=== PATIENT | male | born 1950 | race Caucasian/White ===

== ENCOUNTER 2022-01-04 10:07 | Emergency (ER) | payer OTHER, SELFPAY ==
--- NOTE | ~2022-01-04 | XR_ITS ---
EXAMINATION: XR chest 1V CLINICAL INFORMATION: Reason for Exam fall, hypotension COMPARISON: None TECHNIQUE: XR chest 1V Tubes and lines: None Lungs and pleura: Both lungs are clear. Heart and mediastinum: Widened mediastinum probably unfolding of the aorta exaggerated by AP technique.. Bones/soft tissue: Skeletal structures included are normal for patient's age. XR/XR chest 1V IMPRESSION: Widened mediastinum probably unfolding of the aorta, exaggerated by AP technique, consider correlation with follow-up chest PA and lateral and/or contrast-enhanced chest CT.
--- NOTE | ~2022-01-04 | XR_ITS ---
EXAMINATION: XR CHEST CLINICAL INFORMATION: Abnormal chest x-ray COMPARISON: Chest x-ray January 04, 2022 at 10:42 AM TECHNIQUE: 2 views of the chest were obtained. FINDINGS: Cardiac silhouette is normal in size. Similar appearance of the mediastinum suggesting unfolding of the aorta. There is no gross lobar consolidation present. No pleural effusion or pneumothorax. Moderate degenerative changes of the spine. XR/XR chest 2V IMPRESSION: Stable examination suggesting unfolding of the aorta.
--- NOTE | ~2022-01-04 | CT_ITS ---
EXAM: Noncontrast CT scan of the head and cervical spine. INDICATION: Fall with head strike and neck pain. COMPARISON: None TECHNIQUE: Axial slices were obtained from skull base to vertex and displayed. This was followed by helical, multislice, multidetector axial images from the occiput to the upper thorax. Coronal and sagittal reformats of the cervical spine in addition to coronal reformats of the head were obtained at the technologist workstation. DLP: 1128 mGy-cm FINDINGS: HEAD: There is no evidence of acute intracranial hemorrhage or territorial infarction. No abnormal mass effect or midline shift is appreciated. Mills-white differentiation is well preserved. No extra-axial fluid collections. The ventricular system and cortical sulci are prominent, consistent with volume loss. There are areas of low density in the periventricular and subcortical white matter, most consistent with sequelae of microvascular ischemic change. The osseous structures and soft tissues are normal. There is mild to moderate calcifications of the cavernous internal carotid arteries. The visualized paranasal sinuses and mastoid air cells are well aerated. SPINE: The cervical spine is visualized in its entirety. There is minimal anterolisthesis of C2 on C3 with minimal retrolisthesis of C4 on C5. Cervical vertebral body heights are maintained. There is moderate to severe disc space narrowing with associated degenerative changes of the endplates C4/5, C5/6 and to a lesser extent C6/7. Small osteophytes are noted within the mid and lower cervical spine. Mild diffuse facet hypertrophy bilaterally. No prevertebral soft tissue swelling. Visualized lung apices are well aerated. CT/CT cervical spine wo con IMPRESSION: 1. No acute intracranial pathology. 2. No fractures or dislocations of the cervical spine. This CT examination was performed using dose optimization techniques as appropriate, variously including the following: *Automated exposure control *Adjustment of mA and/or kV according to patient size (this includes techniques or standardized protocols for targeted exams where dose is matched to indication/reason for exam; i.e. extremities or head) *Use of iterative reconstruction technique
--- NOTE | ~2022-01-04 | CT_ITS ---
EXAMINATION: CT ANGIOGRAM CHEST CLINICAL INFORMATION: Hypotension and abnormal chest x-ray COMPARISON: Chest x-ray of January 04, 2022 TECHNIQUE: Multiple axial images were obtained through the chest after the administration of 70 mL of Omnipaque 350 intravenous contrast. Extensive vascular post-processing including two-dimensional and three-dimensional reformatted images were created and reviewed on an independent workstation. This CT examination was performed using dose optimization techniques as appropriate, variously including the following: *Automated exposure control *Adjustment of mA and/or kV according to patient size (this includes techniques or standardized protocols for targeted exams where dose is matched to indication/reason for exam; i.e. extremities or head) *Use of iterative reconstruction technique DLP: 406 mGy-cm FINDINGS: Lungs: There is motion artifact present somewhat degrading study. Central airways are patent. No significant bronchial wall thickening or bronchiectasis present. No confluent airspace disease is seen. Calcified granulomas present. There are a few nonspecific regions of hazy density within the right lower lobe with the largest one measuring approximately 1.4 x 0.7 cm in size. This can be seen on CT image [address] series #6. There are some bilateral scattered sub-4 mm densities present. Pulmonary arteries: No acute pulmonary artery emboli. Thoracic aorta: The ascending thoracic aorta is aneurysmal measuring approximately 4.5 cm in diameter. The proximal descending thoracic aorta measures 3.2 cm in diameter. The aortic arch is not dilated. No thoracic aortic dissection is identified. No evidence of transection. The celiac and superior mesenteric arteries are patent. Mediastinum: Heart normal size. No septal bowing identified. Aortic valve calcification is seen. Coronary artery calcification is seen. No pericardial effusion. No mediastinal or hilar lymphadenopathy. No pneumothorax or pleural effusion. There is reflux of contrast into the hepatic veins suggestive of elevated right heart pressures. There is cholelithiasis present without evidence of acute cholecystitis. Left renal cyst present. Status post gastric surgery. Osseous structures: Multilevel thoracic spondylosis is present without evidence of acute fracture or suspicious destructive bony lesion. CT/CT angio chest aorta IMPRESSION: No evidence of acute pulmonary artery embolus. Ascending thoracic aortic aneurysm measuring up to 4.5 cm in AP dimension. No evidence of aortic dissection. Right lower lobe groundglass opacities as described. Cholelithiasis without evidence of acute cholecystitis. According to the UPDATED 2017 Fleischner Society recommendations, the advised follow-up imaging for multiple subsolid nodules, the largest of which measures 6 mm or greater, is: CT at 3-6 months to confirm persistence. Subsequent management should be based on the most suspicious nodule(s).
--- NOTE | 2022-01-04 10:31 | ECG_ITS ---
Test Reason : AMS Blood Pressure : / mmHG Vent. Rate : 081 BPM Atrial Rate : 081 BPM P-R Int : 236 ms QRS Dur : 108 ms QT Int : 426 ms P-R-T Axes : 045 116 038 degrees QTc Int : 494 ms Sinus rhythm with 1st degree A-V block Low voltage QRS Right bundle branch block Abnormal ECG No previous ECGs available Referred By: Brie Wadsworth Electronically Signed By:CHESTER MIDDLETON
[2022-01-04 10:32] VITALS: BP 86/46; PULSE 97; RESP 18; TEMP 37.2; O2SAT 97; BMI 18.3
--- NOTE | 2022-01-04 10:39 | ED.AMS ---
HPI - Altered Mental Status General Chief Complaint: Altered Mental Status Stated Complaint: headstrike combative from snf Time Seen by Provider: 01/04/22 10:28 Source: EMS Mode of arrival: EMS Limitations: altered mental status History of Present Illness HPI narrative: 71-year-old male with history of end-stage renal disease on hemodialysis Wednesday and Fridays, hypotension on midodrine, diabetes, AFib on Coumadin, Boerhaave syndrome status post esophagectomy, gastrectomy status post G-tube placement, severe malnutrition, COPD, TIAs, ACD, hyperparathyroidism, chronic thrombocytopenia and leukopenia, chronic wounds to the anterior chest with recent biopsy, lumbar spondylosis with myelopathy, high cholesterol, chronic schizophrenia and compulsive pedophilia who comes from [facility] with concerns of a slip and fall falling backwards with head strike and no loss of consciousness. Staff is concerned since the fall the patient seems more altered and combative from his baseline. Patient is on Coumadin Unclear or patients baseline mental staus or if he received his morning medications. called and spoke to staff at [facility]. 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 Patient was witnessed to throw himself onto the floor with a head strike and no loss of consciousness. Related Data Allergies Allergy/AdvReac Type Severity Reaction Status Date / Time NICK Inhibitors Allergy Unknown Unknown Verified 01/04/22 10:31 aspirin Allergy Unknown Unknown Verified 01/04/22 10:31 divalproex sodium Allergy Unknown Unknown Verified 01/04/22 10:31 Review of Systems Review of Systems: Yes Unobtainable due to mental status Neurologic: Reports confusion Psychiatric: Psychiatric: Reports confusion PMFSH Past Medical History Attestation statement: The following information was validated with the patient. Source: old records reviewed Social History Social History Alcohol intake: unknown Patient Tobacco Use Status: Tobacco use Unknown Use of substances other than those prescribed or required for medical reasons: Unknown Advance Directives: Yes Advance Directives on File: Yes Advance Directives Date on File: 01/04/22 Physical Exam ED Vital Signs: Vital Signs - 24 hr 01/04/22 10:32 01/04/22 11:46 01/04/22 12:46 Temperature 98.9 F Pulse Rate 97 80 83 Respiratory Rate 18 14 Blood Pressure 86/46 L 83/59 L 90/62 Pulse Oximetry 97 Oxygen Delivery Method Room Air 01/04/22 13:41 Temperature Pulse Rate 79 Respiratory Rate 15 Blood Pressure 85/51 L Pulse Oximetry Oxygen Delivery Method BMI result Body Mass Index 18.3 Const Other: +cachetic General: alert, combative, confusion and poor hygiene Nutritional Appearance: underweight Orientation/consciousness: confusion Limitations: altered mental status [facility] Head: Yes normal to inspection, No Garcia's sign and No raccoon eyes Ears: hearing grossly normal bilaterally General nose exam: Normal external nose present Face and sinus: Yes normal facial exam Mouth: Normal oral and palatal mucosa present Throat: Yes posterior oropharynx normal Eyes General: appearance normal, both eyes and all related structures Pupils: Equal, round and reactive pupils present Neck Neck: Yes normal visual inspection, Yes full ROM, Yes no lymphadenopathy and Yes no meningeal signs Chest Chest palpation & inspection: normal inspection of the chest Resp Effort & Inspection: normal respiratory effort Auscultation: clear to auscultation bilaterally Cardio Rate: regular rate Rhythm: regular rhythm Peripheral pulses: Peripheral pulses 2+ throughout GI Other: GT present left side of abdomen Palpation (GI): Soft to palpation and nontender Back/Spine/Pelvis Thoracic/Lumbar Spine: thoracic and lumbar spine normal to inspection Skin General skin exam: no rashes or lesions noted Neuro General: moves all extremities, no meningeal signs, confusion and Unable to assess gait Cranial nerves: Yes Equal, round and reactive pupils present, Yes Normal facial strength present and Yes Midline tongue present Gait exam (Neuro): Unable to assess gait Course Course Course Narrative: the patient has a chest x-ray that suggests an unfolding of the aorta. He has had some hypotension which may or may not be chronic. He has an elevated INR and is on Coumadin with no active signs of bleeding however due to these findings the patient will have a CT of the chest to rule out dissection. His additional labs show chronic kidney disease. he goes to dialysis tomorrow at [facility]. patient is not fluid overload. His troponin is 30 he has no chest pain. His EKG shows no ischemic changes. This is likely secondary to elevated creatinine and not from ACS. Reevaluation(s) Reevaluation #1: 1600- the patient mild hypokalemia. This was replaced via G-tube. His CT of the chest showed no acute dissection. He does have a ascending thoracic aortic aneurysm up to 4.5cm. his blood pressure has been 85-90 systolic which does seem close to his baseline. He is asymptomatic. He is mentating. Plan for discharge back to [facility]. He has been alert here. He has been cooperative during his entire emergency room visit and has been agreeable to all interventions here. He is not happy about going back to [facility]. this case was discussed with my attending physician Dr. Carvalho MDM - Altered Mental Status MDM Narrative Medical decision making narrative: this is a 71-year-old male who comes from [facility] with an extensive medical history with hypotension at baseline on midodrine on coumadin for PAF who presents with concern for increasing confusion and a head injury which occurred earlier today. On arrival the patient is alert. He is confused. He has no overt deficits. Initial blood pressure is 85 systolic. Patient is mentating. will check labs, chest x-ray, CT head and cervical spine. - after the patient was seen I did speak to nursing at [facility]. They tell me the patient blood pressure at baseline is around 90 systolic. He has had intermittent low blood pressures and is on midodrine 10 mg daily. He did not receive any of his morning medications. Therefore his dose of midodrine was ordered via G-tube. She tells me that they were concerned the patient was acting more combative and altered after his head injury however the patient has had some changes in mental status over the last few weeks. She tells me that last week they patient was quite combative and confused and they discuss transferring him to the hospital but this was later decided to manage there. It seems the altered mental status may or may not be from the head injury but may be from his underlying psychiatric illnesses. Medical Records Attestation: I reviewed the patient's medical records. Lab Data Attestation: I reviewed the patient's lab results. Result diagrams: 01/04/22 11:15 01/04/22 11:13 Labs: Lab Results 01/04/22 01/04/22 01/04/22 Range/Units 11:13 11:13 11:13 WBC (4.8-10.8) X10*3/uL RBC (4.60-5.80) X10*6/uL Hgb (14.0-18.0) g/dl Hct (42.0-52.0) % MCV (80.0-98.0) fL MCH (27.0-33.0) pg MCHC (31.0-36.0) g/dl RDW (11.0-16.0) % Plt Count (160-400) X10*3/uL MPV (9.4-12.4) fL Immature Gran % (Auto) (0.0-0.4) % Neut % (Auto) (45-73) % Lymph % (Auto) (20-40) % Kern % (Auto) (2-11) % Eos % (Auto) (0-4) % Baso % (Auto) (0-2) % Lymph # (Auto) (1.2-4.9) X10*3/uL Kern # (Auto) (0.1-1.2) X10*3/uL Eos # (Auto) (0.0-0.4) X10*3/uL Baso # (Auto) (0.0-0.2) X10*3/uL Abs Immat Gran (auto) (0.00-0.03) X10*3/uL Absolute Neuts (auto) (2.0-8.3) x10*3/uL Absolute Nucleated RBC (0.0-0.012) X10*3/uL Nucleated RBC % (auto) (0.0-0.2) /100WBC PT (10.0-13.1) SEC INR (0.9-1.1) Sodium 137 (135-145) mmol/L Potassium 3.1 L (3.3-5.1) mmol/L Chloride 102 (96-108) mmol/L Carbon Dioxide 17 L (22-29) mmol/L Anion Gap 21 H (12-20) BUN 38 H (9-16) mg/dL Creatinine 6.01 H* (0.5-1.4) mg/dL Estim Creat Clear Calc 8.9 Estimated GFR 9 Random Glucose 81 (60-115) mg/dL Lactic Acid 1.0 (0.5-2.0) mmol/L Calcium 9.0 (8.4-10.2) mg/dL Magnesium 2.0 (1.6-2.6) mg/dL Total Bilirubin 0.9 (0.0-1.0) mg/dL Direct Bilirubin 0.4 (0.0-0.5) mg/dL AST 13 (5-37) U/L ALT 11 (0-40) U/L Alkaline Phosphatase 109 (39-117) U/L Troponin I High Sens 30.6 (<3.5-35.0) ng/L Total Protein 6.2 L (6.5-8.0) g/dL Albumin 3.7 (3.5-5.0) g/dL 01/04/22 01/04/22 Range/Units 11:13 11:15 WBC 10.1 (4.8-10.8) X10*3/uL RBC 3.92 L (4.60-5.80) X10*6/uL Hgb 11.8 L (14.0-18.0) g/dl Hct 36.4 L (42.0-52.0) % MCV 92.9 (80.0-98.0) fL MCH 30.1 (27.0-33.0) pg MCHC 32.4 (31.0-36.0) g/dl RDW 16.7 H (11.0-16.0) % Plt Count 234 (160-400) X10*3/uL MPV 9.3 L (9.4-12.4) fL Immature Gran % (Auto) 0.4 (0.0-0.4) % Neut % (Auto) 71.8 (45-73) % Lymph % (Auto) 17.7 L (20-40) % Kern % (Auto) 7.5 (2-11) % Eos % (Auto) 2.2 (0-4) % Baso % (Auto) 0.4 (0-2) % Lymph # (Auto) 1.8 (1.2-4.9) X10*3/uL Kern # (Auto) 0.8 (0.1-1.2) X10*3/uL Eos # (Auto) 0.2 (0.0-0.4) X10*3/uL Baso # (Auto) 0.0 (0.0-0.2) X10*3/uL Abs Immat Gran (auto) 0.04 H (0.00-0.03) X10*3/uL Absolute Neuts (auto) 7.2 (2.0-8.3) x10*3/uL Absolute Nucleated RBC 0.000 (0.0-0.012) X10*3/uL Nucleated RBC % (auto) 0.0 (0.0-0.2) /100WBC PT 119.4 H (10.0-13.1) SEC INR 9.5 H* (0.9-1.1) Sodium (135-145) mmol/L Potassium (3.3-5.1) mmol/L Chloride (96-108) mmol/L Carbon Dioxide (22-29) mmol/L Anion Gap (12-20) BUN (9-16) mg/dL Creatinine (0.5-1.4) mg/dL Estim Creat Clear Calc Estimated GFR Random Glucose (60-115) mg/dL Lactic Acid (0.5-2.0) mmol/L Calcium (8.4-10.2) mg/dL Magnesium (1.6-2.6) mg/dL Total Bilirubin (0.0-1.0) mg/dL Direct Bilirubin (0.0-0.5) mg/dL AST (5-37) U/L ALT (0-40) U/L Alkaline Phosphatase (39-117) U/L Troponin I High Sens (<3.5-35.0) ng/L Total Protein (6.5-8.0) g/dL Albumin (3.5-5.0) g/dL Imaging Data CT scan - head: Attestation: I personally reviewed and interpreted this imaging study as follows: Radiologist's impression: INDINGS: HEAD: There is no evidence of acute intracranial hemorrhage or territorial infarction.? No abnormal mass effect or midline shift is appreciated. Mills-white differentiation is well preserved.? No extra-axial fluid collections. The ventricular system and cortical sulci are prominent, consistent with volume loss.? There are areas of low density in the periventricular and subcortical white matter, most consistent with sequelae of microvascular ischemic change.? The osseous structures and soft tissues are normal.? There is mild to moderate calcifications of the cavernous internal carotid arteries. The visualized paranasal sinuses and mastoid air cells are well aerated. ct cervical spine: Attestation: I personally reviewed and interpreted this imaging study as follows: Radiologist's impression: SPINE: The cervical spine is visualized in its entirety. There is minimal anterolisthesis of C2 on C3 with minimal retrolisthesis of C4 on C5. Cervical vertebral body heights are maintained. There is moderate to severe disc space narrowing with associated degenerative changes of the endplates C4/5, C5/6 and to a lesser extent C6/7. Small osteophytes are noted within the mid and lower cervical spine. Mild diffuse facet hypertrophy bilaterally. No prevertebral soft tissue swelling. Visualized lung apices are well aerated. Chest x-ray: Attestation: I personally reviewed and interpreted this imaging study as follows: Radiologist's impression: [address] [address] XRay Report Signed Patient: Jarocho House MR#: [id number] : 1950 Acct:[id number] Age/Sex: 71 / M ADM Date: 01/04/22 Loc: .ED Attending Dr: Ordering Physician: Brie Wadsworth NP Date of Service: 01/04/22 Procedure(s): XR chest 2V Accession Number(s): [id number] cc: Brie Wadsworth NP~ EXAMINATION: XR CHEST CLINICAL INFORMATION: Abnormal chest x-ray COMPARISON: Chest x-ray January 04, 2022 at 10:42 AM TECHNIQUE: 2 views of the chest were obtained. FINDINGS: Cardiac silhouette is normal in size. Similar appearance of the mediastinum suggesting unfolding of the aorta. There is no gross lobar consolidation present. No pleural effusion or pneumothorax. Moderate degenerative changes of the spine. XR/XR chest 2V IMPRESSION: Stable examination suggesting unfolding of the aorta. CT scan - chest: Attestation: I personally reviewed and interpreted this imaging study as follows: Radiologist's impression: FINDINGS: Lungs: There is motion artifact present somewhat degrading study. Central airways are patent. No significant bronchial wall thickening or bronchiectasis present. No confluent airspace disease is seen. Calcified granulomas present. There are a few nonspecific regions of hazy density within the right lower lobe with the largest one measuring approximately 1.4 x 0.7 cm in size. This can be seen on CT image [address] series #6. There are some bilateral scattered sub-4 mm densities present. Pulmonary arteries: No acute pulmonary artery emboli. Thoracic aorta: The ascending thoracic aorta is aneurysmal measuring approximately 4.5 cm in diameter. The proximal descending thoracic aorta measures 3.2 cm in diameter. The aortic arch is not dilated. No thoracic aortic dissection is identified. No evidence of transection. The celiac and superior mesenteric arteries are patent. Mediastinum: Heart normal size. No septal bowing identified. Aortic valve calcification is seen. Coronary artery calcification is seen. No pericardial effusion. No mediastinal or hilar lymphadenopathy. No pneumothorax or pleural effusion. There is reflux of contrast into the hepatic veins suggestive of elevated right heart pressures. There is cholelithiasis present without evidence of acute cholecystitis. Left renal cyst present. Status post gastric surgery. Osseous structures: Multilevel thoracic spondylosis is present without evidence of acute fracture or suspicious destructive bony lesion. CT/CT angio chest aorta IMPRESSION: No evidence of acute pulmonary artery embolus. ? Ascending thoracic aortic aneurysm measuring up to 4.5 cm in AP dimension. No evidence of aortic dissection. ? ?Right lower lobe groundglass opacities as described. ? Cholelithiasis without evidence of acute cholecystitis. ? According to the UPDATED 2017 Fleischner Society recommendations, the advised follow-up imaging for multiple subsolid nodules, the largest of which measures 6 mm or greater, is: CT at 3-6 months to confirm persistence. Subsequent management should be based on the most suspicious nodule(s). ECG Data ECG #1: Attestation: I personally reviewed and interpreted this ECG as follows: ECG interpretation date: 01/04/22 ECG interpretation time: 10:58 Interpretation: sinus rhythm with a first-degree AV block, normal QRS, normal QT, right bundle-branch block Discharge Plan Discharge Clinical Impression: Fall, Elevated INR Patient Disposition: [facility] Transfer Details: [facility] Additional Instructions: the patient's INR is 9.5. do not give him his Coumadin today. speak to the medical staff about when to resume.
[2022-01-04] MEDS: Midodrine HCl 10 MG TABLET G-TUBE (11:06)
[2022-01-04 11:20] LABS: Basophils Percent Auto 0.4 % (0-2); Eosinophils Absolute Auto 0.2 X10*3/uL (0.0-0.4); Eosinophils Percent Auto 2.2 % (0-4); Hematocrit 36.4 % (42.0-52.0); Hemoglobin 11.8 g/dl (14.0-18.0); Imm Gran Abs Auto 0.04 X10*3/uL (0.00-0.03); Imm Gran Pct Auto 0.4 % (0.0-0.4); Lymphocytes Absolute Auto 1.8 X10*3/uL (1.2-4.9); Lymphocytes Percent Auto 17.7 % (20-40); MANUAL DIFF FLAG NO; Mean Corpuscular HGB Conc 32.4 g/dl (31.0-36.0); Mean Corpuscular Hemoglobin 30.1 pg (27.0-33.0); Mean Corpuscular Volume 92.9 fL (80.0-98.0); Mean Platelet Volume 9.3 fL (9.4-12.4); Monocytes Absolute Auto 0.8 X10*3/uL (0.1-1.2); Monocytes Percent Auto 7.5 % (2-11); Neutrophils Absolute Auto 7.2 x10*3/uL (2.0-8.3); Neutrophils Percent Auto 71.8 % (45-73); Platelet Count 234 X10*3/uL (160-400); Red Blood Count 3.92 X10*6/uL (4.60-5.80); Red Cell Distribution Width 16.7 % (11.0-16.0); White Blood Count 10.1 X10*3/uL (4.8-10.8)
[2022-01-04 11:33] LABS: Prothrombin Time 119.4 SEC (10.0-13.1)
[2022-01-04 11:39] LABS: Troponin-I High Sensitivity 30.6 ng/L (<3.5-35.0)
[2022-01-04 11:46] VITALS: BP 83/59; PULSE 80
[2022-01-04 12:02] LABS: INTERNATIONAL NORM RATIO 9.5 (0.9-1.1)
[2022-01-04 12:03] LABS: Alanine Aminotransferase 11 U/L (0-40); Albumin Level 3.7 g/dL (3.5-5.0); Alkaline Phosphatase 109 U/L (39-117); Anion Gap 21 (12-20); Aspartate Amino Transferase 13 U/L (5-37); Bilirubin Direct 0.4 mg/dL (0.0-0.5); Bilirubin Total 0.9 mg/dL (0.0-1.0); Blood Urea Nitrogen 38 mg/dL (9-16); Carbon Dioxide 17 mmol/L (22-29); Chloride 102 mmol/L (96-108); Creatinine Clr Calc Pharmacy 8.9; Estimated Glomerular Filt Rate 9; Glucose Random 81 mg/dL (60-115); Potassium 3.1 mmol/L (3.3-5.1); Sodium 137 mmol/L (135-145); Total Protein 6.2 g/dL (6.5-8.0)
[2022-01-04] MEDS: Potassium Chloride ER 20 MEQ TAB.ER.PRT 30 MEQ PO (12:21)
[2022-01-04] MEDS: Potassium Chloride Packet 20 MEQ PACKET 40 MEQ G-TUBE (12:22)
[2022-01-04 12:46] VITALS: BP 90/62; PULSE 83; RESP 14
[2022-01-04 13:41] VITALS: BP 85/51; PULSE 79; RESP 15
[2022-01-04] MEDS: iohexoL 350 MG/ML 100 ML INFUS..BTL IV (14:25)
== END 2022-01-04 18:41 | disposition skilled nursing facility (03) ==
PROVIDERS: Nurse Practitioner Family; Emergency Provider Emergency Medicine; PCP Internal Medicine
DX: Z04.3 Encounter for examination and observation following other accident (principal); R79.1 Abnormal coagulation profile; E87.6 Hypokalemia; I71.2 Thoracic aortic aneurysm, without rupture; Z91.81 History of falling; I95.9 Hypotension, unspecified; E11.22 Type 2 diabetes mellitus with diabetic chronic kidney disease; N18.6 End stage renal disease; Z99.2 Dependence on renal dialysis; E78.00 Pure hypercholesterolemia, unspecified; I48.0 Paroxysmal atrial fibrillation; R62.7 Adult failure to thrive; Z68.1 Body mass index [BMI] 19.9 or less, adult; Z79.899 Other long term (current) drug therapy; Z79.02 Long term (current) use of antithrombotics/antiplatelets; Z79.01 Long term (current) use of anticoagulants; Z93.1 Gastrostomy status; Z86.73 Personal history of transient ischemic attack (TIA), and cerebral infarction without residual deficits
CPT/HCPCS: 36415; 70450; 71045; 71046; 71275; 72125; 80048; 80076; 83605; 83735; 84484; 85025; 85610; 87040; 87077; 87186; 87205; 93005; 99284; Q9967

== ENCOUNTER 2022-01-05 18:22 | Emergency (ER) | payer OTHER, SELFPAY ==
[2022-01-05] VITALS (10 sets, daily range): BP systolic 62–124; BP diastolic 34–68; PULSE 67–89; RESP 12–16; TEMP 36.7; O2SAT 94–99; BMI 18.4
--- NOTE | ~2022-01-05 | XR_ITS ---
EXAMINATION: XR ABDOMEN KUB CLINICAL INDICATION: G-tube check COMPARISON: None TECHNIQUE: AP view of the abdomen. The radiograph was performed after injection of 30 mL of Gastrografin by Dr. Blue FINDINGS: There is filling of jejunum and the tube appears to be a primary jejunostomy. No definite filling of the gastric lumen is seen. No extravasated contrast or intraperitoneal contrast. XR/XR KUB IMPRESSION: Direct jejunostomy is in good position.
--- NOTE | ~2022-01-05 | CT_ITS ---
EXAMINATION: CT ABDOMEN AND PELVIS WITHOUT CONTRAST CLINICAL INFORMATION: Abdominal pain COMPARISON: None TECHNIQUE: Multidetector volumetric imaging was performed from the superior aspect of the liver through the pubic symphysis. Sagittal and coronal reformatted images were obtained on the technologist's workstation. This CT examination was performed using dose optimization techniques as appropriate, variously including the following: *Automated exposure control *Adjustment of mA and/or kV according to patient size (this includes techniques or standardized protocols for targeted exams where dose is matched to indication/reason for exam; i.e. extremities or head) *Use of iterative reconstruction technique DLP: 614 mGy-cm FINDINGS: LUNG BASES: There is a right basilar scarring or atelectasis. Heart size is normal. LIVER, GALLBLADDER, AND BILIARY TREE: The liver is normal in size, shape, and attenuation. No focal hepatic lesion or biliary ductal dilatation is present. The gallbladder is distended with multiple dependent radiopaque gallstones without wall thickening or pericholecystic fluid collection. PANCREAS: Unremarkable. SPLEEN: The spleen is prominent measuring 11.5 cm in longest axis oriented transversely. There are scattered calcifications within. ADRENAL GLANDS: Both adrenal glands are slightly hypertrophied. KIDNEYS AND URETERS: The kidneys are normal in size, shape, and attenuation. No hydronephrosis, hydroureter, or calculi seen. No perinephric stranding. 1.6 cm left kidney and an 1.1 cm exophytic midpole right kidney cyst there are additional right renal cyst seen. There is no hydronephrosis. BLADDER: The bladder is nondistended and appears unremarkable. GASTROINTESTINAL TRACT: There is a left jejunostomy catheter in the left midabdomen. The small bowel loops are normal caliber. Oral contrast opacifies the entire colon PICC a annular lesion in the right mid ascending colon best visualized on coronal image 59/5 and sagittal image 96/6. No proximal bowel dilation seen. There is mild mural thickening involving the sigmoid colon but no pericolic fat stranding seen. Appendix is not visualized. ABDOMINAL WALL: There are surgical [place] in the right midabdomen. No evidence of hernia. LYMPH NODES: There are small lymph nodes in the right ileocolic mesentery. No retroperitoneal lymph nodes seen. VASCULAR: There is atherosclerotic changes of abdominal aorta without aneurysmal dilatation. PELVIC VISCERA: There is no free fluid. OSSEOUS STRUCTURES: There is grade 2 anterolisthesis L5-S1 with degenerative disc changes L4-L5 and L5/S1 disc levels. There is moderate spondylosis as well. No aggressive lytic or sclerotic process seen. CT/CT abdomen pelvis wo con IMPRESSION: Well-defined annular lesion right mid ascending colon suspicious for colonic tumor. There are abnormal ileocolic several mesenteric lymph nodes best visualized on axial image 46/3 Bilateral renal cysts without radiopaque calculi or hydronephrosis. Cholelithiasis with a dilated gallbladder. Mild prostate enlargement with central and peripheral calcification. Left mid abdomen jejunostomy tube. Right basilar platelike atelectasis. Fleischner guidelines were followed.
--- NOTE | 2022-01-05 18:27 | ED.GENADULT ---
HPI - General Adult General Chief complaint: General Medical <ALEX Contreras - Last Filed: 01/06/22 05:08> Stated complaint: G TUBE LEAKING <ALEX Contreras - Last Filed: 01/06/22 05:08> Time Seen by Provider: 01/05/22 18:27 <ALEX Contreras - Last Filed: 01/06/22 05:08> Source: patient <ALEX Contreras - Last Filed: 01/06/22 05:08> Mode of arrival: ambulatory <ALEX Contreras - Last Filed: 01/06/22 05:08> Limitations: altered mental status and other (Minimally responsive, lethargic) <ALEX Contreras Last Filed: 01/06/22 05:08> History of Present Illness HPI narrative: This is a 71-year-old male history of end-stage renal disease on hemodialysis (Wednesday, Wednesday, Wednesday at [facility]), diabetes, atrial fibrillation on Coumadin, Boerhaave syndrome status post esophagectomy, gastrectomy status post G-tube placement, malnutrition, ACD, TIAs, COPD, hyperparathyroidism, leukopenia and chronic thrombocytopenia, 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 Patient unable to provide me with a history. Patient toxic appearing. He is hypotensive for triage blood pressure of 63/40. Patient unable to provide me with a history or review of systems. He did tell EMS at some point that his abdomen was hurting. Patient full code. <ALEX Contreras Last Filed: 01/06/22 05:08> Related Data Allergies/adverse reactions: Allergies Allergy/AdvReac Type Severity Reaction Status Date / Time NICK Inhibitors Allergy Unknown Unknown Verified 01/05/22 18:47 aspirin Allergy Unknown Unknown Verified 01/05/22 18:47 divalproex sodium Allergy Unknown Unknown Verified 01/05/22 18:47 valproic acid Allergy Unknown Unknown Verified 01/05/22 18:47 <ALEX Contreras Last Filed: 01/06/22 05:08> Review of Systems Review of Systems: Yes unobtainable due to endotracheal tube <ALEX Contreras - Last Filed: 01/06/22 05:08> FOR[facility]LY [facility] Past Medical History Attestation statement: The following information was validated with the patient. <ALEX Contreras - Last Filed: 01/06/22 05:08> Source: old records reviewed and nursing notes reviewed <ALEX Contreras - Last Filed: 01/06/22 05:08> Social History Social History: Social History Alcohol intake: unknown Patient Tobacco Use Status: Tobacco use Unknown Advance Directives: Yes Advance Directives on File: Yes Advance Directives Date on File: 01/04/22 <ALEX Contreras - Last Filed: 01/06/22 05:08> Physical Exam ED Vital Signs: Vital Signs - 24 hr 01/05/22 18:48 01/05/22 19:24 01/05/22 19:53 Temperature 98.0 F Pulse Rate 74 77 Respiratory Rate 13 14 Blood Pressure 62/38 L 67/43 L 73/34 L Pulse Oximetry 97 Oxygen Delivery Method Room Air 01/05/22 20:12 01/05/22 20:43 01/05/22 21:10 Temperature Pulse Rate 82 70 89 Respiratory Rate 16 16 16 Blood Pressure 64/42 L 64/43 L 64/40 L Pulse Oximetry 95 99 96 Oxygen Delivery Method Room Air Room Air Room Air 01/05/22 21:14 01/05/22 22:12 01/05/22 22:37 Temperature Pulse Rate 82 73 77 Respiratory Rate 16 14 16 Blood Pressure 64/40 L 76/49 L 82/53 L Pulse Oximetry 99 95 96 Oxygen Delivery Method Room Air Room Air Room Air 01/05/22 23:44 01/06/22 00:09 01/06/22 02:33 Temperature Pulse Rate 67 65 68 Respiratory Rate 12 14 16 Blood Pressure 62/36 L 67/33 L 69/43 L Pulse Oximetry 98 95 100 Oxygen Delivery Method Room Air Room Air 01/06/22 04:10 Temperature Pulse Rate 72 Respiratory Rate 16 Blood Pressure 64/39 L Pulse Oximetry 100 Oxygen Delivery Method Room Air BMI result Body Mass Index 18.4 Patient is noted to be significantly hypotensive <ALEX Contreras - Last Filed: 01/06/22 05:08> Vital Signs - 24 hr 01/05/22 18:48 01/05/22 19:24 01/05/22 19:53 Temperature 98.0 F Pulse Rate 74 77 Respiratory Rate 13 14 Blood Pressure 62/38 L 67/43 L 73/34 L Pulse Oximetry 97 Oxygen Delivery Method Room Air 01/05/22 20:12 01/05/22 20:43 01/05/22 21:10 Temperature Pulse Rate 82 70 89 Respiratory Rate 16 16 16 Blood Pressure 64/42 L 64/43 L 64/40 L Pulse Oximetry 95 99 96 Oxygen Delivery Method Room Air Room Air Room Air 01/05/22 21:14 01/05/22 22:12 01/05/22 22:37 Temperature Pulse Rate 82 73 77 Respiratory Rate 16 14 16 Blood Pressure 64/40 L 76/49 L 82/53 L Pulse Oximetry 99 95 96 Oxygen Delivery Method Room Air Room Air Room Air 01/05/22 23:44 01/06/22 00:09 01/06/22 02:33 Temperature Pulse Rate 67 65 68 Respiratory Rate 12 14 16 Blood Pressure 62/36 L 67/33 L 69/43 L Pulse Oximetry 98 95 100 Oxygen Delivery Method Room Air Room Air 01/06/22 04:10 Temperature Pulse Rate 72 Respiratory Rate 16 Blood Pressure 64/39 L Pulse Oximetry 100 Oxygen Delivery Method Room Air BMI result Body Mass Index 18.4 <Austin Olea MD - Last Filed: 01/05/22 19:20> Appearance patient awake to verbal and painful stimuli. Patient toxic appearing, lethargic. Cachectic Head: Normocephalic, atraumatic, no step-offs or deformities Eyes: Pupils equal, round and reactive to light.? ENT: Pharynx normal.?Dry mucus membranes Neck: Normal inspection.? Neck supple.? CVS: Normal heart rate and rhythm.? Pulses normal.? Respiratory: No respiratory distress.? Breath sounds normal.? Abdomen: Soft and diffusely tender, a GJ tube is in place however leaking. Skin: Skin warm and dry.? Normal skin color.? Normal skin turgor.?+ cellulitis vs fungal surrounding the insertion site of the GJ tube. Extremities: No lower extremity edema.? No calf ttp. 5/5 strength to bilateral upper and lower extremities Neuro: Awakes to verbal and painful stimuli. Patient not oriented to time, or situation. <ALEX Contreras - Last Filed: 01/06/22 05:08> Course Reevaluation(s) Reevaluation #1: CBC with no acute findings, chemistry with a slightly elevated BUN creatinine however patient is a hemodialysis patient, BUN and creatinine significantly improved since yesterday when he was here. Patient very difficult to obtain urine from, large boggy prostate, unable to get a cudae in or a regular cath. [place] cath in place. Bladder scan 0 <ALEX Contreras - Last Filed: 01/06/22 05:08> Time: 20:20 <ALEX Contreras - Last Filed: 01/06/22 05:08> Reevaluation #2: Spoke to nurse from [facility] who tells me GJ tube was leaking and he seemed very restless, baseline bp low. Patient with intermittent confusion per shelter staff. <ALEX Contreras - Last Filed: 01/06/22 05:08> Time: 19:51 <ALEX Contreras - Last Filed: 01/06/22 05:08> Reevaluation #3: Spoke to GI Dr. Gary who tells me he doesnt place J tubes. Spoke to who tells me this is not emergent can be done out patient. <ALEX Contreras - Last Filed: 01/06/22 05:08> Time: 20:00 <ALEX Contreras Last Filed: 01/06/22 05:08> Additional Reevaluation(s): 5 A bedside ultrasound was done which shows a completely flat IVC consistent with dehydration, spoke to my attending who recommends fluid hydration. Patient remains lethargic. UA pending. CT of the abdomen and pelvic significant for a well-defined annular lesion in the right mid ascending colon suspicion for colonic tumor. There are ileocecal several mesenteric lymph nodes. Bilateral renal cysts are noted, cholelithiasis with a dilated gallbladder also noted. Patient does have pain with palpation to entire abdomen. 0146 Nurse at this time tells me that his pressures are chronically low SBP 70-100, they tell me that patient has been more aggressive and altered than usual. Patient full code. 0152 Tried to call family no answer (Bernabe Soto) 0449 Spoke to Sanjay JOHNSON from ICU he doesn't feel like patient doesn't require in patient admission. [address] Rodgers who doesn't feel as though patient requires hospital admission. Patient will remain in the ED until hospitalist speaks to the morning team to come up with a plan. Report given to Dr. Valentine. 0500 Spoke to hospitalist again, now feels as though there is no reason for hospital admission. Patient will remain in the ED for monitoring of BP evaluation. Report given to Dr. Valentine <ALEX Contreras - Last Filed: 01/06/22 05:08> Procedures Feeding Tube Replacement Type of Tube: gastrostomy <Austin Olea MD - Last Filed: 01/05/22 19:20> Insertion Site Prior to Procedure: erythematous <Austin Olea MD - Last Filed: 01/05/22 19:20> Tube Used for Reinsertion: other (SHAY) <Austin Olea MD - Last Filed: 01/05/22 19:20> [place] Tube Size (F): 22 <Austin Olea MD - Last Filed: 01/05/22 19:20> Balloon size (mL): 10 <Austin Olea MD - Last Filed: 01/05/22 19:20> Verification of Placement: gastrografin injection <Austin Olea MD - Last Filed: 01/05/22 19:20> Tube Secured by: tape/dressing <Austin Olea MD - Last Filed: 01/05/22 19:20> Patient Tolerated Procedure: well <Austin Olea MD - Last Filed: 01/05/22 19:20> Additional Comments: Patient had a GJ tube, G-tube was placed instead of GJ tube to keep the opening patent <Austin Olea MD - Last Filed: 01/05/22 19:20> Medical Decision Making [facility] Narrative Medical decision making narrative: 1918 71-year-old male presenting for replacement of GJ tube which is currently leaking, patient noted to be toxic appearing and hypotensive upon triage. Patient minimally responsive and unable to provide me with an accurate history. Patient coming from [facility]. Physical examination significant for leaking and GJ tube in place, abdomen diffusely tender, regular rate and rhythm, lungs clear, patient awakes to verbal and painful stimuli. Oriented to person however not time or situation. Patient appears toxic and is hypotensive. At this time infection suspected, blood cultures, lactic acid, basic labs as well as CT of the abdomen and pelvis will be ordered at this time. Patient is a hemodialysis patient therefore he will be hydrated only with 500 cc of fluid. Will give Zosyn for prophylactic coverage. A new GJ tube has been placed, 22 G, KUB ordered for confirmation. <ALEX Contreras - Last Filed: 01/06/22 05:08> Medical Records Medical records reviewed: Yes I reviewed the patient's medical records. <ALEX Contreras - Last Filed: 01/06/22 05:08> Lab Data Lab results reviewed: Yes I reviewed the patient's lab results. <ALEX Contreras - Last Filed: 01/06/22 05:08> Result diagrams: : 01/05/22 19:13 01/05/22 19:13 <ALEX Contreras - Last Filed: 01/06/22 05:08> Labs: Lab Results 01/05/22 01/05/22 01/05/22 Range/Units 19:00 19:13 19:13 WBC 10.1 (4.8-10.8) X10*3/uL RBC 4.03 L (4.60-5.80) X10*6/uL Hgb 12.0 L (14.0-18.0) g/dl Hct 38.5 L (42.0-52.0) % MCV 95.5 (80.0-98.0) fL MCH 29.8 (27.0-33.0) pg MCHC 31.2 (31.0-36.0) g/dl RDW 16.7 H (11.0-16.0) % Plt Count 261 (160-400) X10*3/uL MPV 9.9 (9.4-12.4) fL Immature Gran % (Auto) 0.5 H (0.0-0.4) % Neut % (Auto) 78.7 H (45-73) % Lymph % (Auto) 11.6 L (20-40) % [place] % (Auto) 7.2 (2-11) % Eos % (Auto) 1.6 (0-4) % Baso % (Auto) 0.4 (0-2) % Lymph # (Auto) 1.2 (1.2-4.9) X10*3/uL [place] # (Auto) 0.7 (0.1-1.2) X10*3/uL Eos # (Auto) 0.2 (0.0-0.4) X10*3/uL Baso # (Auto) 0.0 (0.0-0.2) X10*3/uL Abs Immat Gran (auto) 0.05 H (0.00-0.03) X10*3/uL Absolute Neuts (auto) 8.0 (2.0-8.3) x10*3/uL Absolute Nucleated RBC 0.000 (0.0-0.012) X10*3/uL Nucleated RBC % (auto) 0.0 (0.0-0.2) /100WBC PT (10.0-13.1) SEC INR (0.9-1.1) Sodium 140 (135-145) mmol/L Potassium 3.8 D (3.3-5.1) mmol/L Chloride 102 (96-108) mmol/L Carbon Dioxide 19 L (22-29) mmol/L Anion Gap 23 H (12-20) BUN 22 H (9-16) mg/dL Creatinine 3.55 H (0.5-1.4) mg/dL Estim Creat Clear Calc 16.6 Estimated GFR 17 POC Glucose 68 (60-115) mg/dL Random Glucose 76 (60-115) mg/dL Lactic Acid (0.5-2.0) mmol/L Calcium 8.9 (8.4-10.2) mg/dL Magnesium 1.9 (1.6-2.6) mg/dL Total Bilirubin 0.9 (0.0-1.0) mg/dL AST 24 D (5-37) U/L ALT 15 (0-40) U/L Alkaline Phosphatase 115 (39-117) U/L Ammonia (13-55) umol/L Troponin I High Sens (<3.5-35.0) ng/L Total Protein 6.7 (6.5-8.0) g/dL Albumin 3.8 (3.5-5.0) g/dL COVID-19 (ELISABETH) (Negative) COVID-19 Clin Com 01/05/22 01/05/22 01/05/22 Range/Units 19:13 19:13 19:13 WBC (4.8-10.8) X10*3/uL RBC (4.60-5.80) X10*6/uL Hgb (14.0-18.0) g/dl Hct (42.0-52.0) % MCV (80.0-98.0) fL MCH (27.0-33.0) pg MCHC (31.0-36.0) g/dl RDW (11.0-16.0) % Plt Count (160-400) X10*3/uL MPV (9.4-12.4) fL Immature Gran % (Auto) (0.0-0.4) % Neut % (Auto) (45-73) % Lymph % (Auto) (20-40) % [place] % (Auto) (2-11) % Eos % (Auto) (0-4) % Baso % (Auto) (0-2) % Lymph # (Auto) (1.2-4.9) X10*3/uL [place] # (Auto) (0.1-1.2) X10*3/uL Eos # (Auto) (0.0-0.4) X10*3/uL Baso # (Auto) (0.0-0.2) X10*3/uL Abs Immat Gran (auto) (0.00-0.03) X10*3/uL Absolute Neuts (auto) (2.0-8.3) x10*3/uL Absolute Nucleated RBC (0.0-0.012) X10*3/uL Nucleated RBC % (auto) (0.0-0.2) /100WBC PT (10.0-13.1) SEC INR (0.9-1.1) Sodium (135-145) mmol/L Potassium (3.3-5.1) mmol/L Chloride (96-108) mmol/L Carbon Dioxide (22-29) mmol/L Anion Gap (12-20) BUN (9-16) mg/dL Creatinine (0.5-1.4) mg/dL Estim Creat Clear Calc Estimated GFR POC Glucose (60-115) mg/dL Random Glucose (60-115) mg/dL Lactic Acid 0.8 (0.5-2.0) mmol/L Calcium (8.4-10.2) mg/dL Magnesium (1.6-2.6) mg/dL Total Bilirubin (0.0-1.0) mg/dL AST (5-37) U/L ALT (0-40) U/L Alkaline Phosphatase (39-117) U/L Ammonia (13-55) umol/L Troponin I High Sens 25.3 (<3.5-35.0) ng/L Total Protein (6.5-8.0) g/dL Albumin (3.5-5.0) g/dL COVID-19 (ELISABETH) Negative (Negative) COVID-19 Clin Com See Note 01/05/22 01/05/22 01/05/22 Range/Units 19:33 20:16 23:36 WBC (4.8-10.8) X10*3/uL RBC (4.60-5.80) X10*6/uL Hgb (14.0-18.0) g/dl Hct (42.0-52.0) % MCV (80.0-98.0) fL MCH (27.0-33.0) pg MCHC (31.0-36.0) g/dl RDW (11.0-16.0) % Plt Count (160-400) X10*3/uL MPV (9.4-12.4) fL Immature Gran % (Auto) (0.0-0.4) % Neut % (Auto) (45-73) % Lymph % (Auto) (20-40) % [place] % (Auto) (2-11) % Eos % (Auto) (0-4) % Baso % (Auto) (0-2) % Lymph # (Auto) (1.2-4.9) X10*3/uL [place] # (Auto) (0.1-1.2) X10*3/uL Eos # (Auto) (0.0-0.4) X10*3/uL Baso # (Auto) (0.0-0.2) X10*3/uL Abs Immat Gran (auto) (0.00-0.03) X10*3/uL Absolute Neuts (auto) (2.0-8.3) x10*3/uL Absolute Nucleated RBC (0.0-0.012) X10*3/uL Nucleated RBC % (auto) (0.0-0.2) /100WBC PT 24.5 H (10.0-13.1) SEC INR 2.1 H D (0.9-1.1) Sodium (135-145) mmol/L Potassium (3.3-5.1) mmol/L Chloride (96-108) mmol/L Carbon Dioxide (22-29) mmol/L Anion Gap (12-20) BUN (9-16) mg/dL Creatinine (0.5-1.4) mg/dL Estim Creat Clear Calc Estimated GFR POC Glucose (60-115) mg/dL Random Glucose (60-115) mg/dL Lactic Acid (0.5-2.0) mmol/L Calcium (8.4-10.2) mg/dL Magnesium (1.6-2.6) mg/dL Total Bilirubin (0.0-1.0) mg/dL AST (5-37) U/L ALT (0-40) U/L Alkaline Phosphatase (39-117) U/L Ammonia 14 (13-55) umol/L Troponin I High Sens 24.9 (<3.5-35.0) ng/L Total Protein (6.5-8.0) g/dL Albumin (3.5-5.0) g/dL COVID-19 (ELISABETH) (Negative) COVID-19 Clin Com <ALEX Contreras - Last Filed: 01/06/22 05:08> Lab Results 01/05/22 01/05/22 01/05/22 Range/Units 19:00 19:13 19:13 WBC 10.1 (4.8-10.8) X10*3/uL RBC 4.03 L (4.60-5.80) X10*6/uL Hgb 12.0 L (14.0-18.0) g/dl Hct 38.5 L (42.0-52.0) % MCV 95.5 (80.0-98.0) fL MCH 29.8 (27.0-33.0) pg MCHC 31.2 (31.0-36.0) g/dl RDW 16.7 H (11.0-16.0) % Plt Count 261 (160-400) X10*3/uL MPV 9.9 (9.4-12.4) fL Immature Gran % (Auto) 0.5 H (0.0-0.4) % Neut % (Auto) 78.7 H (45-73) % Lymph % (Auto) 11.6 L (20-40) % [place] % (Auto) 7.2 (2-11) % Eos % (Auto) 1.6 (0-4) % Baso % (Auto) 0.4 (0-2) % Lymph # (Auto) 1.2 (1.2-4.9) X10*3/uL [place] # (Auto) 0.7 (0.1-1.2) X10*3/uL Eos # (Auto) 0.2 (0.0-0.4) X10*3/uL Baso # (Auto) 0.0 (0.0-0.2) X10*3/uL Abs Immat Gran (auto) 0.05 H (0.00-0.03) X10*3/uL Absolute Neuts (auto) 8.0 (2.0-8.3) x10*3/uL Absolute Nucleated RBC 0.000 (0.0-0.012) X10*3/uL Nucleated RBC % (auto) 0.0 (0.0-0.2) /100WBC PT (10.0-13.1) SEC INR (0.9-1.1) Sodium 140 (135-145) mmol/L Potassium 3.8 D (3.3-5.1) mmol/L Chloride 102 (96-108) mmol/L Carbon Dioxide 19 L (22-29) mmol/L Anion Gap 23 H (12-20) BUN 22 H (9-16) mg/dL Creatinine 3.55 H (0.5-1.4) mg/dL Estim Creat Clear Calc 16.6 Estimated GFR 17 POC Glucose 68 (60-115) mg/dL Random Glucose 76 (60-115) mg/dL Lactic Acid (0.5-2.0) mmol/L Calcium 8.9 (8.4-10.2) mg/dL Magnesium 1.9 (1.6-2.6) mg/dL Total Bilirubin 0.9 (0.0-1.0) mg/dL AST 24 D (5-37) U/L ALT 15 (0-40) U/L Alkaline Phosphatase 115 (39-117) U/L Ammonia (13-55) umol/L Troponin I High Sens (<3.5-35.0) ng/L Total Protein 6.7 (6.5-8.0) g/dL Albumin 3.8 (3.5-5.0) g/dL COVID-19 (ELISABETH) (Negative) COVID-19 Clin Com 01/05/22 01/05/22 01/05/22 Range/Units 19:13 19:13 19:13 WBC (4.8-10.8) X10*3/uL RBC (4.60-5.80) X10*6/uL Hgb (14.0-18.0) g/dl Hct (42.0-52.0) % MCV (80.0-98.0) fL MCH (27.0-33.0) pg MCHC (31.0-36.0) g/dl RDW (11.0-16.0) % Plt Count (160-400) X10*3/uL MPV (9.4-12.4) fL Immature Gran % (Auto) (0.0-0.4) % Neut % (Auto) (45-73) % Lymph % (Auto) (20-40) % [place] % (Auto) (2-11) % Eos % (Auto) (0-4) % Baso % (Auto) (0-2) % Lymph # (Auto) (1.2-4.9) X10*3/uL [place] # (Auto) (0.1-1.2) X10*3/uL Eos # (Auto) (0.0-0.4) X10*3/uL Baso # (Auto) (0.0-0.2) X10*3/uL Abs Immat Gran (auto) (0.00-0.03) X10*3/uL Absolute Neuts (auto) (2.0-8.3) x10*3/uL Absolute Nucleated RBC (0.0-0.012) X10*3/uL Nucleated RBC % (auto) (0.0-0.2) /100WBC PT (10.0-13.1) SEC INR (0.9-1.1) Sodium (135-145) mmol/L Potassium (3.3-5.1) mmol/L Chloride (96-108) mmol/L Carbon Dioxide (22-29) mmol/L Anion Gap (12-20) BUN (9-16) mg/dL Creatinine (0.5-1.4) mg/dL Estim Creat Clear Calc Estimated GFR POC Glucose (60-115) mg/dL Random Glucose (60-115) mg/dL Lactic Acid 0.8 (0.5-2.0) mmol/L Calcium (8.4-10.2) mg/dL Magnesium (1.6-2.6) mg/dL Total Bilirubin (0.0-1.0) mg/dL AST (5-37) U/L ALT (0-40) U/L Alkaline Phosphatase (39-117) U/L Ammonia (13-55) umol/L Troponin I High Sens 25.3 (<3.5-35.0) ng/L Total Protein (6.5-8.0) g/dL Albumin (3.5-5.0) g/dL COVID-19 (ELISABETH) Negative (Negative) COVID-19 Clin Com See Note 01/05/22 01/05/22 01/05/22 Range/Units 19:33 20:16 23:36 WBC (4.8-10.8) X10*3/uL RBC (4.60-5.80) X10*6/uL Hgb (14.0-18.0) g/dl Hct (42.0-52.0) % MCV (80.0-98.0) fL MCH (27.0-33.0) pg MCHC (31.0-36.0) g/dl RDW (11.0-16.0) % Plt Count (160-400) X10*3/uL MPV (9.4-12.4) fL Immature Gran % (Auto) (0.0-0.4) % Neut % (Auto) (45-73) % Lymph % (Auto) (20-40) % [place] % (Auto) (2-11) % Eos % (Auto) (0-4) % Baso % (Auto) (0-2) % Lymph # (Auto) (1.2-4.9) X10*3/uL [place] # (Auto) (0.1-1.2) X10*3/uL Eos # (Auto) (0.0-0.4) X10*3/uL Baso # (Auto) (0.0-0.2) X10*3/uL Abs Immat Gran (auto) (0.00-0.03) X10*3/uL Absolute Neuts (auto) (2.0-8.3) x10*3/uL Absolute Nucleated RBC (0.0-0.012) X10*3/uL Nucleated RBC % (auto) (0.0-0.2) /100WBC PT 24.5 H (10.0-13.1) SEC INR 2.1 H D (0.9-1.1) Sodium (135-145) mmol/L Potassium (3.3-5.1) mmol/L Chloride (96-108) mmol/L Carbon Dioxide (22-29) mmol/L Anion Gap (12-20) BUN (9-16) mg/dL Creatinine (0.5-1.4) mg/dL Estim Creat Clear Calc Estimated GFR POC Glucose (60-115) mg/dL Random Glucose (60-115) mg/dL Lactic Acid (0.5-2.0) mmol/L Calcium (8.4-10.2) mg/dL Magnesium (1.6-2.6) mg/dL Total Bilirubin (0.0-1.0) mg/dL AST (5-37) U/L ALT (0-40) U/L Alkaline Phosphatase (39-117) U/L Ammonia 14 (13-55) umol/L Troponin I High Sens 24.9 (<3.5-35.0) ng/L Total Protein (6.5-8.0) g/dL Albumin (3.5-5.0) g/dL COVID-19 (ELISABETH) (Negative) COVID-19 Clin Com <Austin Olea MD - Last Filed: 01/05/22 19:20> Critical Care Time Critical Care Time Critical Care Time: No <ALEX Contreras - Last Filed: 01/06/22 05:08> Discharge Plan Discharge Clinical Impression: Physical deconditioning, Weakness, Dehydration <ALEX Contreras - Last Filed: 01/06/22 05:08> Patient Disposition: Still a Patient <ALEX Contreras - Last Filed: 01/06/22 05:08>
[2022-01-05 19:12] LABS: Glucose, Whole Blood 68 mg/dL (60-115)
[2022-01-05 19:22] LABS: MANUAL DIFF FLAG NO
[2022-01-05] MEDS: 0.9 % Sodium Chloride 500 ML IV (19:24)
--- NOTE | 2022-01-05 19:28 | ECG_ITS ---
Test Reason : SEPSIS Blood Pressure : / mmHG Vent. Rate : 073 BPM Atrial Rate : 073 BPM P-R Int : 234 ms QRS Dur : 070 ms QT Int : 448 ms P-R-T Axes : 035 033 027 degrees QTc Int : 493 ms Sinus rhythm with 1st degree A-V block with Premature atrial complexes Low voltage QRS Cannot rule out Inferior infarct , age undetermined Abnormal ECG When compared with ECG of 04-JAN-2022 10:58, No significant changes seen Referred By: Sharonda Araujo Electronically Signed By:CHESTER MIDDLETON
[2022-01-05 19:34] LABS: Basophils Percent Auto 0.4 % (0-2); Eosinophils Absolute Auto 0.2 X10*3/uL (0.0-0.4); Eosinophils Percent Auto 1.6 % (0-4); Hematocrit 38.5 % (42.0-52.0); Imm Gran Abs Auto 0.05 X10*3/uL (0.00-0.03); Imm Gran Pct Auto 0.5 % (0.0-0.4); Lymphocytes Absolute Auto 1.2 X10*3/uL (1.2-4.9); Lymphocytes Percent Auto 11.6 % (20-40); Mean Corpuscular HGB Conc 31.2 g/dl (31.0-36.0); Mean Corpuscular Hemoglobin 29.8 pg (27.0-33.0); Mean Corpuscular Volume 95.5 fL (80.0-98.0); Mean Platelet Volume 9.9 fL (9.4-12.4); Monocytes Absolute Auto 0.7 X10*3/uL (0.1-1.2); Monocytes Percent Auto 7.2 % (2-11); Neutrophils Percent Auto 78.7 % (45-73); Platelet Count 261 X10*3/uL (160-400); Red Blood Count 4.03 X10*6/uL (4.60-5.80); Red Cell Distribution Width 16.7 % (11.0-16.0); White Blood Count 10.1 X10*3/uL (4.8-10.8)
[2022-01-05 19:35] LABS: Lactic Acid 0.8 mmol/L (0.5-2.0)
[2022-01-05 19:44] LABS: Alanine Aminotransferase 15 U/L (0-40); Albumin Level 3.8 g/dL (3.5-5.0); Alkaline Phosphatase 115 U/L (39-117); Anion Gap 23 (12-20); Aspartate Amino Transferase 24 U/L (5-37); Bilirubin Total 0.9 mg/dL (0.0-1.0); Blood Urea Nitrogen 22 mg/dL (9-16); Calcium 8.9 mg/dL (8.4-10.2); Carbon Dioxide 19 mmol/L (22-29); Chloride 102 mmol/L (96-108); Creatinine Clr Calc Pharmacy 16.6; Estimated Glomerular Filt Rate 17; Glucose Random 76 mg/dL (60-115); Magnesium 1.9 mg/dL (1.6-2.6); Potassium 3.8 mmol/L (3.3-5.1); Sodium 140 mmol/L (135-145); Total Protein 6.7 g/dL (6.5-8.0)
[2022-01-05] MEDS: Piperacillin Sodium/Tazobactam 3.375 GM in 0.9 % Sodium Chloride 50 ML IV (19:45)
[2022-01-05 19:48] LABS: Ammonia 14 umol/L (13-55)
[2022-01-05 19:54] LABS: COVID-19 Test Negative (Negative); IDNOW Serial# 16C4AD1C
[2022-01-05] MEDS: Diatrizoate Meglumine, Sodium 30 ML SOLUTION PO (19:54)
[2022-01-05] MEDS: Midodrine HCl 10 MG TABLET G-TUBE (20:12)
[2022-01-05 20:29] LABS: INTERNATIONAL NORM RATIO 2.1 (0.9-1.1); Prothrombin Time 24.5 SEC (10.0-13.1)
[2022-01-05] MEDS: 0.9 % Sodium Chloride 1,000 ML 999 ML IV (22:13)
[2022-01-05 22:56] LABS: Troponin-I High Sensitivity 25.3 ng/L (<3.5-35.0)
[2022-01-06 00:02] LABS: Troponin-I High Sensitivity 24.9 ng/L (<3.5-35.0)
[2022-01-06 00:09] VITALS: BP 67/33; PULSE 65; RESP 14; O2SAT 95
[2022-01-06] MEDS: Hydrocortisone Sod Succ/PF 100 MG VIAL 50 MG IVPUSH (01:33)
[2022-01-06 02:33] VITALS: BP 69/43; PULSE 68; RESP 16; O2SAT 100
--- NOTE | 2022-01-06 02:41 | W.PM.CCCN ---
History of Present Illness Data of Consult Service Date: 01/06/22 Requesting physician: Sharonda Araujo Primary Care Provider: Unknown Physician HPI Reason for consult: Hypotension HPI: ?Patient is 71-year-old male with underlying history of diabetes, chronic hypotension on midodrine, atrial fibrillation on Coumadin whose INR was elevated as of yesterday and was seen in this emergency room given vitamin K, end-stage renal disease on hemodialysis Fridays, Boerhaave syndrome status post esophagectomy, gastrectomy, status post G-J tube placement, malnutrition, ACD, TIAs, COPD, hyperparathyroidism, leukopenia and chronic thrombocytopenia, 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 ?Patient states that he feels fine, he knows that he is belly has been burning around the G-tube for he thinks that he has a wound there.? Is status comfort is constant, burning sensation, 5/10, localized and nonradiating, better when dry, worse when any liquid comes into contact with the skin.? Denies any fever chills, denies nausea or vomiting, cough, sputum production, chest pain, shortness a breath. ? In the emergency room the patient's workup was repeated as he was seen yesterday, he has no leukocytosis, H&H is 12 and 38 respectively, platelets 261, INR 2.1, BUN 22, creatinine 3.55 (better than previous baseline of 6.01), sodium 140, potassium 3.8, chloride 102, lactic acid 0.8.? Normal LFTs.? COVID negative. ?CT of the abdomen pelvis reveals well-defined and a lesion in the right mid ascending colon suspicious for colonic tumor.? Abnormal ileocolic several mesentery lymph nodes, bilateral renal cysts without calculi or hydronephrosis, cholelithiasis with dilated gallbladder, mild prostate enlargement with central and peripheral calcifications, left mid abdomen jejunostomy tube, right basilar platelike atelectasis. ?Follow-up KUB shows direct jejunostomy in good position. ? At this point patient has no further complaints. ?Patient did receive 500 cc of IV fluid as they were concerned about fluid overload for he is a dialysis patient, he receive Zosyn thinking there is an underlying infection. ?Internal medicine services as well as the ICU where asked to see the patient for possible admission. ? ROS:? Admits IM pressure strokes and some memory deficit, denies cold or heat intolerance, no history of coronary disease, no arm or jaw pain at this point, denies burning on urination although he states he produces very little to almost none, no leg swelling, is not sure if he is up-to-date with his vaccines. ? Past Medical History:? As above Schizophrenia Lumbar spondylolysis and myelopathy Compulsive PD Sarita Hyperlipidemia ? Past Surgical History: ?As above ? Family history:? Noncontributory ? Social History:? Lives at local assisted facility, patient meets being an ex-smoker, denies alcohol, no drugs. ? CODE STATUS: FULL CODE ? Allergies: Ilir inhibitors, aspirin, valproic acid (reactions unknown ) ? Home Medications: See Med Rec ? PHYSICAL EXAM: VS: ?69/43, chronically low, 60, 16, 100% on room air. ? General: ?Thin, cachectic, Alert and oriented x3 in no acute distress, speaking in full sentences and following all commands. ? Skin:? Ecchymotic spots of the torso and upper extremities. ?It is NG tube surrounding is happy pink discoloration of the skin somewhat macerated with what appears to be consistent with a fungal dermatitis, no hardness to touch, no surrounding erythema. ?Intact, no lesions, edema, erythema, clubbing or cyanosis.? No ulcers. HEENT:? Head is normocephalic, atraumatic, pupils round reactive to light accommodation on the left.? Extraocular movements appear intact with Left eye.? Buccal mucosa is dry, Neck is supple without lymphadenopathy. Cardiac:? Clear S1-S2, no murmurs rubs or gallops. Pulmonary:? Clear to auscultation, no wheezes, rales or rhonchi. Abdomen:? Flat somewhat sunken, positive bowel sounds in all 4 quadrants.? Soft, nontender, no rebound or guarding.? Hanley sign is negative. Skin around the G-tube as above. Musculoskeletal:? Moving all 4 extremities upon request a major joints, there is no crepitus or tenderness.? The strength is 5/5 bilaterally and throughout all 4 extremities.? There is no leg edema , no calf tenderness , no leg asymmetry.? Gait not assessed at this point. Neurologic:? As above, cranial nerves 2-12 are grossly intact.? No focal deficits noted. Motor strength as above.? Vascular:? 2+ pulses upper and lower extremities distally. ? SIGNIFICANT LABORATORY DATA:? As above ? REVIEW OF IMAGES: ?As above EKG: To my view this sinus rhythm rate of 73 beats per minute. Evidence of 1st degree AV block and right bundle branch block, no ST elevations, no ST depressions. QTC 448. No comparison. ? ASSESSMENT AND PLAN: 1. Acute on chronic Asymptomatic hypotension likely orthostatic worsened by fluid removal post dialysis 2. Clinical dehydration 3. Fungal rash of the surrounding GJ tube skin tissue 4. End-stage Renal disease on chronic hemodialysis without evidence of fluid overload respiratory distress 5. Colonic mass findings on CT in need of outpatient follow-up 6. History of atrial fibrillation on Coumadin with INR 2.1 ? PLAN OF CARE: The patient does not appear ill or toxic at this point, nor do I think the patient is septic note only there is no source, I do not suspect an underlying infection; the patient is not febrile, not tachycardic, not tachypneic, no hypoxic, does not have leukocytosis or leukopenia. There is no evidence of pneumonia; his lungs are clear on exam and has no symptoms, there is no acute intra-abdominal pathology consistent with a underlying infection or suspicion of a it. I do not think the patient has a UTI. Patient appears clinically dry, 1 more L of IV fluids can be given, continue with midodrine. I a.m. not concerned about underlying adrenal insufficiency at this point. ? The patient can be treated with nystatin cream or powder around the G-tube area and these area should be kept clean and dry to the best of their abilities. ? Patient should follow-up as an outpatient with a senior financial reporting analyst for direct obserbation of the reported colonic lesion suspicion for a tumor in which case appropriate biopsies would guide his treatment plus-minus surgical consultation. ?In regards to the cholelithiasis and distended gallbladder, the patient does not have a Hanley's sign, is not tender, does not have nausea or vomiting, there is no elevation of the LFTs therefore this is unlikely, it is also unlikely that this represents ascending cholangitis as the patient is totally lucid, does not appear toxic, LFTs are normal and there is no fever or white count. ? Continue with dialysis and continue with Coumadin as well as other medications, goal INR 2-3. ? Again at this point the patient does not appear to be ill, I do not even think the patient needs to come into the hospital nevertheless to the ICU, if any suspicion or questionable UTI in case the patient was to make enough urine to test his urine, he could be treated with oral antibiotics. ? With thank you for allowing us to participate in the care of this patient. ? Critical care time used for critical evaluation of this patient, diagnosis, treatment and coordination of care, review her records and documentation TOTAL CRITICAL CARE TIME 90 MIN . Patient's care was discussed in detail with Dr. Betts.? He is aware of all the above as well as the plan of care for this patient. [facility] Social History Social History Alcohol intake: unknown Patient Tobacco Use Status: Tobacco use Unknown Advance Directives: Yes Advance Directives on File: Yes Advance Directives Date on File: 01/04/22 Meds Allergies Allergy/AdvReac Type Severity Reaction Status Date / Time ILIR Inhibitors Allergy Unknown Unknown Verified 01/05/22 18:47 aspirin Allergy Unknown Unknown Verified 01/05/22 18:47 divalproex sodium Allergy Unknown Unknown Verified 01/05/22 18:47 valproic acid Allergy Unknown Unknown Verified 01/05/22 18:47 Active Medications: Current Medications Sodium Chloride (Ns) 1,000 mls @ 999 mls/hr IV .Q1H1M [facility] Stop: 01/06/22 03:00 Sodium Chloride (Ns) 1,000 mls @ 999 mls/hr IVCONT .Q1H1M [facility] Stop: 01/06/22 03:45 Physical Exam Vital Signs: Vital Signs: Last Vital Signs Temp 98.0 F 01/05/22 18:48 Pulse 68 01/06/22 02:33 Resp 16 01/06/22 02:33 BP 69/43 L 01/06/22 02:33 Pulse Ox 100 01/06/22 02:33 O2 Del Method 01/06/22 02:33 BMI result Body Mass Index 18.4 Results Labs CBC & Chem 7: 01/05/22 19:13 01/05/22 19:13 Labs: Short CBC 01/05/22 Range/Units 19:13 WBC 10.1 (4.8-10.8) X10*3/uL Hgb 12.0 L (14.0-18.0) g/dl Hct 38.5 L (42.0-52.0) % Plt Count 261 (160-400) X10*3/uL BMP 01/05/22 19:13 Sodium 140 Potassium 3.8 D Chloride 102 Carbon Dioxide 19 L BUN 22 H Creatinine 3.55 H Calcium 8.9 Liver Function 01/05/22 Range/Units 19:13 Total Bilirubin 0.9 (0.0-1.0) mg/dL AST 24 D (5-37) U/L ALT 15 (0-40) U/L Alkaline Phosphatase 115 (39-117) U/L Albumin 3.8 (3.5-5.0) g/dL
[2022-01-06] MEDS: 0.9 % Sodium Chloride 1,000 ML 999 ML IV (02:43)
[2022-01-06 04:10] VITALS: BP 64/39; PULSE 72; RESP 16; O2SAT 100
[2022-01-06 05:35] VITALS: BP 64/39; PULSE 78; RESP 16; O2SAT 100
--- NOTE | 2022-01-06 05:59 | PC.NURSE ---
I assumed nursing care of Jarocho upon his arrival to bed 8 from an [facility] where his ER visit began after being brought to ED via EMS. INitially Jarocho was drowsy, opening eyes to verbal stimuli but otherwise falling back to sleep quickly. He arrived to ED bed 8 with a BP in the 60's/40's. When awake he was oriented x 3 at that time. He denies dizzines or lightheadedness and stated that his BP always runs low and that he takes a medicine to increase his BP (Midodrine). At that time IV access was obtained by Royer FRANCIS and 500cc NS bolus was administered. His HR remained in the 70's, SR. His BP remained unchanged after the initial 500cc bolus. Pts J-Tube, which was not working (or had dislodged) on arrival was replaced with a new J--tube by Royer FRANCIS at the bedside. Placement was confirmed with bedside Xray and gastrograffin and Midodrine was administered via J-Tube, flushed adequately with water. After the initial 500cc NS bolus the pt received an additional 1L NS bolus per request MD Jonathon. This, as well, did not change his blood pressure - all BP readings remained 60-70's/40's. MD's aware. In addition, per request Sharonda JOHNSON, I asttempted to straight cath the pt (a Rendon was requested but the pt politely refused but agreed to a straight cath). I was unable to pass his prostate with straight cath. I performed a bladder scan (0 cc's) and then obtained a coude catheter and attempted the straight cath again and again I was unable to pass though his prostate. aware. [place] catheter applied. Pt continues to insist that he does not have the urge to void. Will continue to monitor Jarocho.
[2022-01-06 06:26] VITALS: BP 80/55; PULSE 82; RESP 16; O2SAT 100
[2022-01-06 07:12] VITALS: BP 85/55; PULSE 82; RESP 17; O2SAT 98
== END 2022-01-06 10:00 | disposition home or self-care (01) ==
PROVIDERS: Physician Assistant; Emergency Provider Internal Medicine
DX: K94.23 Gastrostomy malfunction (principal); R53.81 Other malaise; R53.1 Weakness; E86.0 Dehydration; I95.9 Hypotension, unspecified; R53.83 Other fatigue; R10.9 Unspecified abdominal pain; Z20.822 Contact with and (suspected) exposure to COVID-19; E11.22 Type 2 diabetes mellitus with diabetic chronic kidney disease; I12.0 Hypertensive chronic kidney disease with stage 5 chronic kidney disease or end stage renal disease; N18.6 End stage renal disease; Z99.2 Dependence on renal dialysis; I48.91 Unspecified atrial fibrillation; R62.7 Adult failure to thrive; Z68.1 Body mass index [BMI] 19.9 or less, adult; Z79.01 Long term (current) use of anticoagulants
CPT/HCPCS: 43762; 74018; 74176; 80053; 82140; 82947; 83605; 83735; 84484; 85025; 85610; 87040; 87635; 93005; 96361; 96374; 96375; 99285; J2543

== ENCOUNTER 2022-01-10 06:32 | Emergency (ER) | payer OTHER, SELFPAY ==
[2022-01-10] VITALS (7 sets, daily range): BP systolic 60–114; BP diastolic 31–62; PULSE 72–85; RESP 16–20; TEMP 37.1; O2SAT 95–96; BMI 30.4
--- NOTE | ~2022-01-10 | XR_ITS ---
EXAMINATION: XR CHEST CLINICAL INFORMATION: Cough. COMPARISON: Chest radiograph done on 01/04/2022. TECHNIQUE: Frontal view of the chest was obtained. FINDINGS: No significant abnormality is noted involving the heart, lungs, mediastinum, bony thorax or soft tissues. The thoracic aorta is tortuous. No significant change since 01/04/2022. XR/XR chest 1V IMPRESSION: No radiographic evidence of pneumonia. No significant change since 01/04/2022.
--- NOTE | ~2022-01-10 | CT_ITS ---
EXAMINATION: CT HEAD WITHOUT CONTRAST CLINICAL INFORMATION: Fall. On [employer]. COMPARISON: Previous head CT 01/04/2022 TECHNIQUE: Contiguous axial imaging was performed from the skull base to vertex without intravenous administration of contrast. This CT examination was performed using dose optimization techniques as appropriate, variously including the following: *Automated exposure control *Adjustment of mA and/or kV according to patient size (this includes techniques or standardized protocols for targeted exams where dose is matched to indication/reason for exam; i.e. extremities or head) *Use of iterative reconstruction technique DLP: 753 mGy-cm FINDINGS: There is no evidence of an extra-axial collection. There is no evidence of intra-axial or extra-axial hemorrhage. The ventricles and extra-axial CSF spaces are prominent suggestive of mild generalized atrophy. There is nonspecific periventricular white matter disease. No mass, mass effect or infarct is seen. There is mild ectasia of the distal left vertebral artery measuring up to 7 mm. There is evidence of atherosclerotic disease. No skull fracture is seen. Visualized paranasal sinuses, mastoid air cells and middle ears are clear. CT/CT head/brain wo con IMPRESSION: No acute findings. Mild generalized atrophy and nonspecific periventricular white matter disease.
--- NOTE | ~2022-01-10 | CT_ITS ---
EXAMINATION: CT CERVICAL SPINE WITHOUT CONTRAST CLINICAL INFORMATION: Fall COMPARISON: Previous cervical spine CT 01/04/2022 TECHNIQUE: Axial images through the cervical spine without contrast. Sagittal and coronal reconstructions on the technologist workstation were performed. This CT examination was performed using dose optimization techniques as appropriate, variously including the following: *Automated exposure control *Adjustment of mA and/or kV according to patient size (this includes techniques or standardized protocols for targeted exams where dose is matched to indication/reason for exam; i.e. extremities or head) *Use of iterative reconstruction technique DLP: 261 mGy-cm FINDINGS: There is mild anterior listhesis of C2 with respect to C3 measuring 2 mm that is stable. Bone alignment is normal. No fracture or dislocation is seen. There is degenerative spondylosis and degenerative disc disease at C4-C5, C5-C6 and C6-C7. 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 There are mild degenerative changes at the C1 dens articulation. Prevertebral soft tissues are normal. There is bilateral carotid calcification. Visualized lung apices are clear. CT/CT cervical spine wo con IMPRESSION: Degenerative changes. No fracture or dislocation seen. Fleischner guidelines were followed.
--- NOTE | 2022-01-10 07:01 | ECG_ITS ---
Test Reason : FALL Blood Pressure : / mmHG Vent. Rate : 083 BPM Atrial Rate : 083 BPM P-R Int : 220 ms QRS Dur : 106 ms QT Int : 440 ms P-R-T Axes : 057 106 036 degrees QTc Int : 517 ms Sinus rhythm with 1st degree A-V block with Premature atrial complexes Incomplete right bundle branch block Possible Right ventricular hypertrophy Prolonged QT Abnormal ECG When compared with ECG of 05-JAN-2022 21:05, No significant changes seen Referred By: Chayito Lo Electronically Signed By:CHESTER MIDDLETON
--- NOTE | 2022-01-10 07:21 | ED_ITS ---
HPI - Fall General Chief Complaint: Fall Stated Complaint: FALL Time Seen by Provider: 01/10/22 07:01 Source: patient and EMS Mode of arrival: EMS History of Present Illness HPI Narrative: 71-year-old male from [facility] brought in by EMS after patient sustained a fall from the wheelchair hitting his head, patient is on Coumadin and the fall was witnessed by staff. As per staff at [facility] patient is nonverbal at baseline but ?has been stating he wants to ?? However, on speaking with the patient he answers appropriately and states that he was trying to get up when he fell. He has reiterated and confirmed his MOLST that is on file and states he wants every measure taken should his heart stop or the stop breathing. Add itional clarification was obtained from the patient regarding his blood pressure and he states it is usually low ?around 77?. He states he denies chest pain but feels short of breath. Otherwise, he describes a headache. Related Data Previous Rx's Medication Instructions Recorded doxycycline hyclate 100 mg tablet 100 mg PO BID 5 days #10 tabs 01/10/22 Allergies Allergy/AdvReac Type Severity Reaction Status Date / Time NICK Inhibitors Allergy Unknown Unknown Verified 01/05/22 18:47 aspirin Allergy Unknown Unknown Verified 01/05/22 18:47 divalproex sodium Allergy Unknown Unknown Verified 01/05/22 18:47 valproic acid Allergy Unknown Unknown Verified 01/05/22 18:47 Review of Systems Review of Systems: Pertinent positives and negatives as stated in HPI 10 point review of systems is otherwise negative. [facility] Past Medical History Source: nursing notes reviewed Social History Social History Alcohol intake: unknown Patient Tobacco Use Status: Former Tobacco user Use of substances other than those prescribed or required for medical reasons: No Advance Directives: Yes Advance Directives on File: Yes Advance Directives Date on File: 01/04/22 Physical Exam Vital Signs: Vital Signs: Last Vital Signs Temp 98.7 F 01/10/22 08:35 Pulse 83 01/10/22 13:01 Resp 18 01/10/22 13:01 BP 66/37 L 01/10/22 13:01 Pulse Ox 95 01/10/22 13:01 O2 Del Method 01/10/22 13:01 BMI result Body Mass Index 30.4 VITAL SIGNS: Reviewed. GENERAL: Cachectic, chronically ill, in no acute distress. HEAD: Normocephalic/contusion with hematoma noted at mid upper forehead EYES: PERRLA, EOMI EARS: Ext canals without abnormality, TMs non-bulging and non-erythematous NOSE: Nares patent bilateral OROPHARYNX: no oral lesions noted, posterior pharynx clear, dry mucosa NECK: Supple, no adenopathy LUNGS: Normal breath sounds. No adventitious sounds or accessory muscle use, no tachypnea. SpO2<95>; CHEST WALL: No pain on palpation, no deformity/crepitus noted, patient does have noted ostomy with cloudy-yellowish fluid that appears to be serous in nature located at the left infraclavicular CARDIOVASCULAR: Regular rate and rhythm without noted murmurs, no JVD or lower extremity edema. ABDOMEN: Soft, non-tender, non-distended with bowel sounds, J tube noted from the abdominal wall MUSCULOSKELETAL: No tenderness, deformities, or effusions noted on gross inspection. EXTREMITIES: No cyanosis, clubbing or edema; RIGHT UPPER EXTREMITY: Fistula with thrill and bruit noted. SKIN: Inspection of the skin reveals no rashes NEUROLOGIC: Alert and oriented x 3. Strength and sensation to light touch were grossly intact x 4. Course Course Course Narrative: 71-year-old male with history and clinical presentation consistent with fall on thinners, patient is alert and oriented, on review of his chart it looks like he was here on January 06 for dehydration/dehydration/deconditioning and on reviewing that note it is confirmed the patient's blood pressure seems to run in the upper 60s over 40s. Patient is mentating well, and on the previous visit he was noted to have a mass in the right mid ascending colon that was suspicious for colonic tumor. And confirms the patient has a J tube in good position. 1030: Patient did not arrive for any SIRS or complaints consistent with infection and due to challenging venous access we only obtained the leukocytosis at 10:00 o'clock that demonstrates 16. Patient is afebrile, and his hypotension is consistently this level with good mentation and this is not a septic shock due to infection. On review of further laboratory studies patient has a mild bump in troponin which is new without obvious change in EKG. Although I suspect that this is due to a demand etiology patient has significant history of both ongoing cancer, dehydration, as well as being on dialysis Wednesday/Wednesday/Wednesday. On review of all investigations although there is of persistent leukocytosis, patient remains at his baseline hemodynamics, has remained afebrile, benign abdominal exam, and suspect this may be a contribution for underlying masses. Patient has no intracranial or cervical spine pathologies and although the troponins are detectable, there were no EKG changes and patient has no complaints of chest pain. Will empirically send patient out on a 5 days doxycycline after he received initial dose of Rocephin and strict instructions to follow-up with his primary care provider at the facility as well as being provided with strict return precautions. All results and findings discussed with the patient at bedside. This plan was discussed in conjunction with the inpatient hospitalist team and we reached the above consensus. Patient appears clinically well without distress. Reevaluation(s) Reevaluation #1: Review of CT imaging negative for acute intracranial bleed or abnormality and C- spine is cleared. C-collar was removed. Patient denies any midline cervical spine tenderness. Time: 08:07 MDM - Fall Lab Data Result diagrams: 01/10/22 14:43 01/10/22 07:47 Labs: Lab Results 01/10/22 01/10/22 01/10/22 Range/Units 07:47 07:47 07:47 WBC (4.8-10.8) X10*3/uL RBC (4.60-5.80) X10*6/uL Hgb (14.0-18.0) g/dl Hct (42.0-52.0) % MCV (80.0-98.0) fL MCH (27.0-33.0) pg MCHC (31.0-36.0) g/dl RDW (11.0-16.0) % Plt Count (160-400) X10*3/uL MPV (9.4-12.4) fL Immature Gran % (Auto) (0.0-0.4) % Neut % (Auto) (45-73) % Lymph % (Auto) (20-40) % Barnes % (Auto) (2-11) % Eos % (Auto) (0-4) % Baso % (Auto) (0-2) % Lymph # (Auto) (1.2-4.9) X10*3/uL Barnes # (Auto) (0.1-1.2) X10*3/uL Eos # (Auto) (0.0-0.4) X10*3/uL Baso # (Auto) (0.0-0.2) X10*3/uL Abs Immat Gran (auto) (0.00-0.03) X10*3/uL Absolute Neuts (auto) (2.0-8.3) x10*3/uL Absolute Nucleated RBC (0.0-0.012) X10*3/uL Nucleated RBC % (auto) (0.0-0.2) /100WBC PT 32.1 H (10.0-13.1) SEC INR 2.7 H (0.9-1.1) Sodium 143 (135-145) mmol/L Potassium 2.7 L D (3.3-5.1) mmol/L Chloride 104 (96-108) mmol/L Carbon Dioxide 24 (22-29) mmol/L Anion Gap 18 (12-20) BUN 22 H (9-16) mg/dL Creatinine 4.63 H* (0.5-1.4) mg/dL Estim Creat Clear Calc 15.5 Estimated GFR 12 Random Glucose 90 (60-115) mg/dL Lactic Acid (0.5-2.0) mmol/L Calcium 8.7 (8.4-10.2) mg/dL Total Bilirubin 0.8 (0.0-1.0) mg/dL AST 24 (5-37) U/L ALT 23 (0-40) U/L Alkaline Phosphatase 113 (39-117) U/L Troponin I High Sens (<3.5-35.0) ng/L Total Protein 6.3 L (6.5-8.0) g/dL Albumin 3.7 (3.5-5.0) g/dL COVID-19 (ELISABETH) Negative (Negative) COVID-19 Clin Com See Note 01/10/22 01/10/22 01/10/22 Range/Units 07:47 10:03 10:03 WBC 16.0 H (4.8-10.8) X10*3/uL RBC 3.35 L (4.60-5.80) X10*6/uL Hgb 10.4 L (14.0-18.0) g/dl Hct 32.7 L (42.0-52.0) % MCV 97.6 (80.0-98.0) fL MCH 31.0 (27.0-33.0) pg MCHC 31.8 (31.0-36.0) g/dl RDW 16.4 H (11.0-16.0) % Plt Count 234 (160-400) X10*3/uL MPV 10.0 (9.4-12.4) fL Immature Gran % (Auto) 0.8 H (0.0-0.4) % Neut % (Auto) 81.5 H (45-73) % Lymph % (Auto) 11.0 L (20-40) % Barnes % (Auto) 5.4 (2-11) % Eos % (Auto) 0.9 (0-4) % Baso % (Auto) 0.4 (0-2) % Lymph # (Auto) 1.8 (1.2-4.9) X10*3/uL Barnes # (Auto) 0.9 (0.1-1.2) X10*3/uL Eos # (Auto) 0.2 (0.0-0.4) X10*3/uL Baso # (Auto) 0.1 (0.0-0.2) X10*3/uL Abs Immat Gran (auto) 0.12 H (0.00-0.03) X10*3/uL Absolute Neuts (auto) 13.0 H (2.0-8.3) x10*3/uL Absolute Nucleated RBC 0.000 (0.0-0.012) X10*3/uL Nucleated RBC % (auto) 0.0 (0.0-0.2) /100WBC PT (10.0-13.1) SEC INR (0.9-1.1) Sodium (135-145) mmol/L Potassium (3.3-5.1) mmol/L Chloride (96-108) mmol/L Carbon Dioxide (22-29) mmol/L Anion Gap (12-20) BUN (9-16) mg/dL Creatinine (0.5-1.4) mg/dL Estim Creat Clear Calc Estimated GFR Random Glucose (60-115) mg/dL Lactic Acid (0.5-2.0) mmol/L Calcium (8.4-10.2) mg/dL Total Bilirubin (0.0-1.0) mg/dL AST (5-37) U/L ALT (0-40) U/L Alkaline Phosphatase (39-117) U/L Troponin I High Sens 40.2 H D 45.4 H (<3.5-35.0) ng/L Total Protein (6.5-8.0) g/dL Albumin (3.5-5.0) g/dL COVID-19 (ELISABETH) (Negative) COVID-19 Clin Com 01/10/22 01/10/22 01/10/22 Range/Units 11:01 14:43 14:43 WBC 15.1 H (4.8-10.8) X10*3/uL RBC 3.99 L (4.60-5.80) X10*6/uL Hgb 12.2 L (14.0-18.0) g/dl Hct 38.9 L (42.0-52.0) % MCV 97.5 (80.0-98.0) fL MCH 30.6 (27.0-33.0) pg MCHC 31.4 (31.0-36.0) g/dl RDW 16.4 H (11.0-16.0) % Plt Count 225 (160-400) X10*3/uL MPV 9.6 (9.4-12.4) fL Immature Gran % (Auto) 0.4 (0.0-0.4) % Neut % (Auto) 78.3 H (45-73) % Lymph % (Auto) 13.8 L (20-40) % Barnes % (Auto) 5.8 (2-11) % Eos % (Auto) 1.4 (0-4) % Baso % (Auto) 0.3 (0-2) % Lymph # (Auto) 2.1 (1.2-4.9) X10*3/uL Barnes # (Auto) 0.9 (0.1-1.2) X10*3/uL Eos # (Auto) 0.2 (0.0-0.4) X10*3/uL Baso # (Auto) 0.1 (0.0-0.2) X10*3/uL Abs Immat Gran (auto) 0.06 H (0.00-0.03) X10*3/uL Absolute Neuts (auto) 11.8 H (2.0-8.3) x10*3/uL Absolute Nucleated RBC 0.000 (0.0-0.012) X10*3/uL Nucleated RBC % (auto) 0.0 (0.0-0.2) /100WBC PT (10.0-13.1) SEC INR (0.9-1.1) Sodium (135-145) mmol/L Potassium (3.3-5.1) mmol/L Chloride (96-108) mmol/L Carbon Dioxide (22-29) mmol/L Anion Gap (12-20) BUN (9-16) mg/dL Creatinine (0.5-1.4) mg/dL Estim Creat Clear Calc Estimated GFR Random Glucose (60-115) mg/dL Lactic Acid 1.3 (0.5-2.0) mmol/L Calcium (8.4-10.2) mg/dL Total Bilirubin (0.0-1.0) mg/dL AST (5-37) U/L ALT (0-40) U/L Alkaline Phosphatase (39-117) U/L Troponin I High Sens 48.2 H (<3.5-35.0) ng/L Total Protein (6.5-8.0) g/dL Albumin (3.5-5.0) g/dL COVID-19 (ELISABETH) (Negative) COVID-19 Clin Com ECG Data Attestation: I personally reviewed and interpreted this ECG as follows: Prior ECG tracings: available for review Interpretation: Sinus rhythm with first-degree AV block (this is baseline), HR-83, no STEMI, MI -220/QRS-106, QTC-517 Discharge Plan Discharge Clinical Impression: Fall, Chronic anticoagulation, Leukocytosis, Elevated troponin Patient Disposition: er SNF Instructions: Fall Prevention for Older Adults (ED), Leukocytosis (ED), High Troponin Levels (ED) Additional Instructions: 1. Resume all home medications as prescribed. 2. Complete the entire course of antibiotics. 3. Please follow-up with your primary care provider on Wednesday morning for re- evaluation, repeat lab work. Return to the ER for any worsening symptoms or signs such as fevers, chills, difficulty breathing. Prescriptions: New doxycycline hyclate 100 mg tablet 100 mg PO BID 5 Days Qty: 10 0RF
[2022-01-10 08:10] LABS: INTERNATIONAL NORM RATIO 2.7 (0.9-1.1); Prothrombin Time 32.1 SEC (10.0-13.1)
[2022-01-10 08:15] LABS: COVID-19 Test Negative (Negative)
[2022-01-10 08:24] LABS: Troponin-I High Sensitivity 40.2 ng/L (<3.5-35.0)
[2022-01-10 08:35] LABS: Alanine Aminotransferase 23 U/L (0-40); Albumin Level 3.7 g/dL (3.5-5.0); Alkaline Phosphatase 113 U/L (39-117); Anion Gap 18 (12-20); Aspartate Amino Transferase 24 U/L (5-37); Bilirubin Total 0.8 mg/dL (0.0-1.0); Blood Urea Nitrogen 22 mg/dL (9-16); Calcium 8.7 mg/dL (8.4-10.2); Carbon Dioxide 24 mmol/L (22-29); Chloride 104 mmol/L (96-108); Creatinine Clr Calc Pharmacy 15.5; Estimated Glomerular Filt Rate 12; Glucose Random 90 mg/dL (60-115); Potassium 2.7 mmol/L (3.3-5.1); Sodium 143 mmol/L (135-145); Total Protein 6.3 g/dL (6.5-8.0)
--- NOTE | 2022-01-10 08:39 | PC.NURSE ---
Pt aleert/oriented x 3. States fall this morning after being dizzy to this RN, denies any dizziness at this time. Remains hypotensive by denies associated sx currently. Only reporting left upper back pain at this time. Laceration to left upper head and bridge of nose. Pt noted with J tube to abd, stoma to left upper chest and dressing to left mid chest, per pt sore, dsg intact without strikethrough. Fistula to right forearm with +bruit/thrill. Mucous membranes dry
[2022-01-10 10:11] LABS: MANUAL DIFF FLAG NO
[2022-01-10 10:19] LABS: Basophils Absolute Auto 0.1 X10*3/uL (0.0-0.2); Basophils Percent Auto 0.4 % (0-2); Eosinophils Absolute Auto 0.2 X10*3/uL (0.0-0.4); Eosinophils Percent Auto 0.9 % (0-4); Hematocrit 32.7 % (42.0-52.0); Hemoglobin 10.4 g/dl (14.0-18.0); Imm Gran Abs Auto 0.12 X10*3/uL (0.00-0.03); Imm Gran Pct Auto 0.8 % (0.0-0.4); Lymphocytes Absolute Auto 1.8 X10*3/uL (1.2-4.9); Mean Corpuscular HGB Conc 31.8 g/dl (31.0-36.0); Mean Corpuscular Volume 97.6 fL (80.0-98.0); Monocytes Absolute Auto 0.9 X10*3/uL (0.1-1.2); Monocytes Percent Auto 5.4 % (2-11); Neutrophils Percent Auto 81.5 % (45-73); Platelet Count 234 X10*3/uL (160-400); Red Blood Count 3.35 X10*6/uL (4.60-5.80); Red Cell Distribution Width 16.4 % (11.0-16.0)
--- NOTE | 2022-01-10 10:35 | PC.NURSE ---
Pheboltomy called for bld cx and lactic
[2022-01-10 10:51] LABS: Troponin-I High Sensitivity 45.4 ng/L (<3.5-35.0)
[2022-01-10 11:27] LABS: Lactic Acid 1.3 mmol/L (0.5-2.0)
--- NOTE | 2022-01-10 11:36 | PC.NURSE ---
Pt remains asymptomatic denies sob, dizziness, continues to be alert/oriented. A fib on tele rate 70s. Mouth care provided, and lacerations cleaned, left open to air at this time. Pt request ice chips however [facility] called and staff report pt is NPO. Difficulty obtaining steady pulse ox but when reading with good pleth, sat 96-99%.
--- NOTE | 2022-01-10 14:35 | PC.NURSE ---
Pt agitated, request to return back to facility. Dr Lo to bedside and pt agreeable to have repeat cbc and troponin. Pt however now needs frequent reminders to not disrupt lines and monitoring and evaluation advisor and dressings in place.
[2022-01-10 14:46] LABS: MANUAL DIFF FLAG NO
[2022-01-10 14:49] LABS: Basophils Absolute Auto 0.1 X10*3/uL (0.0-0.2); Basophils Percent Auto 0.3 % (0-2); Eosinophils Absolute Auto 0.2 X10*3/uL (0.0-0.4); Eosinophils Percent Auto 1.4 % (0-4); Hematocrit 38.9 % (42.0-52.0); Hemoglobin 12.2 g/dl (14.0-18.0); Imm Gran Abs Auto 0.06 X10*3/uL (0.00-0.03); Imm Gran Pct Auto 0.4 % (0.0-0.4); Lymphocytes Absolute Auto 2.1 X10*3/uL (1.2-4.9); Lymphocytes Percent Auto 13.8 % (20-40); Mean Corpuscular HGB Conc 31.4 g/dl (31.0-36.0); Mean Corpuscular Hemoglobin 30.6 pg (27.0-33.0); Mean Corpuscular Volume 97.5 fL (80.0-98.0); Mean Platelet Volume 9.6 fL (9.4-12.4); Monocytes Absolute Auto 0.9 X10*3/uL (0.1-1.2); Monocytes Percent Auto 5.8 % (2-11); Neutrophils Absolute Auto 11.8 x10*3/uL (2.0-8.3); Neutrophils Percent Auto 78.3 % (45-73); Platelet Count 225 X10*3/uL (160-400); Red Blood Count 3.99 X10*6/uL (4.60-5.80); Red Cell Distribution Width 16.4 % (11.0-16.0); White Blood Count 15.1 X10*3/uL (4.8-10.8)
[2022-01-10 15:06] LABS: Troponin-I High Sensitivity 48.2 ng/L (<3.5-35.0)
[2022-01-10] MEDS: cefTRIAXone sodium 1 GM in 0.9 % Sodium Chloride 50 ML IV (16:33)
--- NOTE | 2022-01-10 19:03 | PC.NURSE ---
call out to [facility] [phone] @ 423 PM for transport to [facility] could not give me an ETA due to no ambulance trucks.
--- NOTE | 2022-01-10 20:41 | PC.NURSE ---
[facility] called this US back @1956 with an update on pickup time within the hour
--- NOTE | 2022-01-10 21:28 | PC.NURSE ---
Nurse to nurse report called to [facility], spoke to DARSHAN Ramos.
== END 2022-01-10 21:29 | disposition skilled nursing facility (03) ==
PROVIDERS: Emergency Provider Student in an Organized Health Care Education/Training Program
DX: S00.83XA Contusion of other part of head, initial encounter (principal); W05.0XXA Fall from non-moving wheelchair, initial encounter; I95.9 Hypotension, unspecified; R79.1 Abnormal coagulation profile; R77.8 Other specified abnormalities of plasma proteins; D72.829 Elevated white blood cell count, unspecified; R51.9 Headache, unspecified; R06.02 Shortness of breath; Z20.822 Contact with and (suspected) exposure to COVID-19; E11.22 Type 2 diabetes mellitus with diabetic chronic kidney disease; N18.6 End stage renal disease; Z87.891 Personal history of nicotine dependence; Y93.89 Activity, other specified; Y92.129 Unspecified place in nursing home as the place of occurrence of the external cause; Y99.9 Unspecified external cause status; Z79.01 Long term (current) use of anticoagulants; Z93.3 Colostomy status; Z93.4 Other artificial openings of gastrointestinal tract status
CPT/HCPCS: 36415; 70450; 71045; 72125; 80053; 83605; 84484; 85025; 85610; 87040; 87635; 93005; 99284; 99285; J0696

== ENCOUNTER 2022-01-11 13:51 | Inpatient (IN) | payer OTHER, SELFPAY ==
[2022-01-11] VITALS (7 sets, daily range): BP systolic 58–85; BP diastolic 35–55; PULSE 55–89; RESP 13–18; TEMP 36.6; O2SAT 95–100; BMI 18.8
--- NOTE | ~2022-01-11 | XR_ITS ---
EXAMINATION: XR CHEST CLINICAL INFORMATION: Fever COMPARISON: 01/10/2022 TECHNIQUE: Frontal view of the chest was obtained. FINDINGS: The lungs are well expanded. Patchy bilateral lower lung opacities are noted, increased from previous. No pneumothorax. No edema or effusion. The cardiomediastinal silhouette is normal in size with a tortuous and calcified aorta. XR/XR chest 1V IMPRESSION: Patchy bilateral lower lung opacities are increased from prior, possibly infectious or inflammatory.
--- NOTE | ~2022-01-11 | CT_ITS ---
EXAMINATION CT CHEST, ABDOMEN AND PELVIS WITHOUT CONTRAST CLINICAL INFORMATION: Hypoxia. Leukocytosis. Abdominal pain. Elevated white blood cell count. COMPARISON: CT abdomen/pelvis dated 01/05/2022 CT chest dated 01/04/2022. TECHNIQUE: Multidetector volumetric CT imaging of the chest, abdomen and pelvis was obtained without use of intravenous contrast. Coronal and sagittal reformats were reviewed. This CT examination was performed using dose optimization techniques as appropriate, variously including the following: *Automated exposure control *Adjustment of mA and/or kV according to patient size (this includes techniques or standardized protocols for targeted exams where dose is matched to indication/reason for exam; i.e. extremities or head) *Use of iterative reconstruction technique DLP: 1017 mGy-cm. FINDINGS: CHEST LUNGS/PLEURA: Mild diffuse bronchial thickening. No bronchiectasis. No parenchymal consolidation. There is no pleural effusion. No pleural mass or thickening. MEDIASTINUM/JESSI: Normal heart size. Ascending aortic aneurysm measures 4.5 cm at the sinotubular junction. No pericardial effusion. Coronary calcifications. CHEST WALL/AXILLA: Unremarkable. ABDOMEN/PELVIS HEPATOBILIARY: Liver normal in size, contour and morphology. No suspicious lesions. No intra or extrahepatic biliary dilation. Cholelithiasis. PANCREAS: Unremarkable. SPLEEN: Unremarkable. ADRENAL GLANDS: Unremarkable. KIDNEYS, URETERS AND BLADDER: Bilateral renal atrophy and subcentimeter cysts which appear benign and require no follow-up. Bilateral nonobstructive intrarenal calculi unchanged. No hydronephrosis.. GASTROINTESTINAL TRACT: Again seen is circumferential wall thickening of the mid ascending colon. Sigmoid colon is underdistended limiting assessment, however there may be wall thickening Chain sutures present along the lesser curvature of the stomach. Jejunostomy tube redemonstrated. Appendix not seen. PELVIC VISCERA: Mild prostatomegaly. LYMPH NODES: No lymphadenopathy. PERITONEUM/BODY WALL: Unremarkable. VASCULAR STRUCTURES: Aorta is atherosclerotic but normal caliber. OSSEOUS STRUCTURES No acute or suspicious osseous abnormalities. Degenerative changes present throughout the spine. Grade 1 anterolisthesis of L5 over S1 related to bilateral L5 spondylolysis. CT/CT abdomen pelvis wo con IMPRESSION: * Mild diffuse bronchial thickening as can be seen with mild bronchitis and chronic airways disease. * Ascending aortic aneurysm measures 4.5 cm. * Again seen is circumferential short segment wall thickening of the ascending colon, which appears longer segment than on the prior examination raising the possibility of colitis, which could be infectious, ischemic or inflammatory. There does appear to be an underlying mass in the same region of the ascending colon as discussed previously. * Possible segmental wall thickening of the mid sigmoid colon could represent an additional site of colitis. * Cholelithiasis. This result was discussed with Sally JOHNSON at 01/11/2022 8:00 PM and it was ascertained that the content and urgency of the report was understood at the time of direct communication.
--- NOTE | 2022-01-11 14:06 | ECG_ITS ---
Test Reason : AMS Blood Pressure : / mmHG Vent. Rate : 071 BPM Atrial Rate : 071 BPM P-R Int : 234 ms QRS Dur : 154 ms QT Int : 462 ms P-R-T Axes : 063 114 029 degrees QTc Int : 502 ms Sinus rhythm with 1st degree A-V block Right bundle branch block Abnormal ECG When compared with ECG of 10-JAN-2022 07:53, Premature atrial complexes are no longer Present QRS duration has increased Referred By: Viviane Cervantes Electronically Signed By:ADI SPANGLER
--- NOTE | 2022-01-11 14:17 | ED_ITS ---
HPI - Weakness General Chief complaint: Altered Mental Status <ALEX Garzon - Last Filed: 01/11/22 17:50> Stated complaint: STOMACH/HEAD PAIN <ALEX Garzon - Last Filed: 01/11/22 17:50> Time Seen by Provider: 01/11/22 14:03 <ALEX Garzon - Last Filed: 01/11/22 17:50> Source: patient, EMS and old records reviewed <ALEX Garzon - Last Filed: 01/11/22 17:50> Mode of arrival: EMS <ALEX Garzon - Last Filed: 01/11/22 17:50> Limitations: no limitations <ALEX Garzon Last Filed: 01/11/22 17:50> History of Present Illness HPI Narrative: 71-year-old male with a history of ESRD on HD M/W/F, chronic hypotension, diabetes, or halve syndrome status post esophagectomy, gastrectomy, s/p J-tube, cachexia with severe protein calorie malnutrition, afib on Coumadin, COPD, TIA, HLD, schizophrenia, COVID-19 in May 2021, who presents to the ER from [facility] for lethargy and worsening weakness. He was reportedly found to have an oxygen saturation of 41% on room air today at 01:00 o'clock. He was hypotensive 54/36 with heart rate 107. He is afebrile at that time. His glucose was 69. He reports he has been getting his tube feeds 4 times per day as ordered. Upon review of documentation he had been disconnecting his TF earlier this month at the facility and continued to lose weight. He was reportedly 140lb in October and is now documented to weigh 109. He reports multiple episodes of diarrhea for the last 11 days. He c/o intermittent abdominal pains. Of note patient was just discharged from this emergency department yesterday for evaluation of a fall when he fell out of a wheelchair. He is on Coumadin. Patient had thorough workup and was ultimately discharged back to [facility] after hospitalist declined admission. He was hypotensive in the emergency department with blood pressures in the 60s and 70s, this is his baseline. Patient was also seen in this emergency department on January 04 and January 05. He has CT scans at that time showing a probable new colonic mass. <ALEX Garzon - Last Filed: 01/11/22 17:50> MD Complaint: generalized weakness and lack of energy <ALEX Garzon - Last Filed: 01/11/22 17:50> Onset (ago): unknown <ALEX Garzon - Last Filed: 01/11/22 17:50> Duration: intermittent <ALEX Garzon - Last Filed: 01/11/22 17:50> Location: generalized <ALEX Garzon - Last Filed: 01/11/22 17:50> Migration: none <ALEX Garzon - Last Filed: 01/11/22 17:50> Relieving factors: none <ALEX Garzon - Last Filed: 01/11/22 17:50> Exacerbating factors: none <ALEX Garzon - Last Filed: 01/11/22 17:50> Related Data Home medications: Home Medications Medication Instructions Recorded Confirmed cyanocobalamin (vitamin B-12) 1,000 mcg feeding tube DAILY 01/11/22 01/11/22 1,000 mcg tablet docusate sodium 100 mg capsule 100 mg PO BID 01/11/22 01/11/22 (Colace) doxycycline hyclate 100 mg tablet 100 mg feeding tube BID 01/11/22 01/11/22 famotidine 20 mg tablet 20 mg feeding tube DAILY 01/11/22 01/11/22 fludrocortisone 0.1 mg tablet 2 tab feeding tube BID 01/11/22 01/11/22 lamotrigine 25 mg chewable 200 mg feeding tube DAILY 01/11/22 01/11/22 dispersible tablet melatonin 3 mg tablet 2 tab feeding tube BEDTIME 01/11/22 01/11/22 midodrine 10 mg tablet 10 mg feeding tube DAILY 01/11/22 01/11/22 olanzapine 15 mg tablet 15 mg feeding tube BEDTIME 01/11/22 01/11/22 olanzapine 5 mg tablet 5 mg feeding tube Q4H PRN Agitation 01/11/22 01/11/22 quetiapine 25 mg tablet 25 mg feeding tube BID 01/11/22 01/11/22 vitamin B complex and vitamin C 1 cap feeding tube DAILY 01/11/22 01/11/22 no.20-folic acid 1 mg capsule (Renal Caps) warfarin 6 mg tablet 6 mg feeding tube DAILY@1800 01/11/22 01/11/22 <ALEX Garzon - Last Filed: 01/11/22 17:50> Allergies/Adverse reactions: Allergies Allergy/AdvReac Type Severity Reaction Status Date / Time NICK Inhibitors Allergy Unknown Unknown Verified 01/11/22 14:14 aspirin Allergy Unknown Unknown Verified 01/11/22 14:14 divalproex sodium Allergy Unknown Unknown Verified 01/11/22 14:14 valproic acid Allergy Unknown Unknown Verified 01/11/22 14:14 <ALEX Garzon - Last Filed: 01/11/22 17:50> Review of Systems Review of Systems: Constitutional: No Fever, No Chills ENT/Mouth: No sore throat, No Rhinorrhea, No Swallowing Difficulty Eyes: No Eye Pain, No Swelling, No Redness Cardiovascular: No Chest Pain, No SOB, No Orthopnea, No Edema Respiratory: No Cough, No Sputum, No Wheezing, No dyspnea Gastrointestinal: No Nausea, No Vomiting, +Diarrhea,+abdominal Pain, No Hematochezia, No Melena Musculoskeletal: No joint pain, No Myalgias Skin: No Skin Lesions, No rash Neuro: +Weakness, No Numbness, No Dizziness, No Headache Psych: No Anxiety/Panic, No Depression Heme/Lymph: +Bruising, No Lymphadenopathy Endocrine: No Polyuria, No Polydipsia <ALEX Garzon - Last Filed: 01/11/22 17:50> [facility] Social History Social History: Social History Alcohol intake: former Patient Tobacco Use Status: Former Tobacco user Use of substances other than those prescribed or required for medical reasons: No Advance Directives: Yes Advance Directives on File: Yes Advance Directives Date on File: 01/04/22 <ALEX Garzon - Last Filed: 01/11/22 17:50> Physical Exam Vital Signs: Vital Signs: Last Vital Signs Temp 97.8 F 01/11/22 14:44 Pulse 72 01/11/22 17:03 Resp 13 01/11/22 17:03 BP 73/52 L 01/11/22 17:03 Pulse Ox 95 01/11/22 17:03 O2 Del Method 01/11/22 17:03 O2 Flow Rate 3 01/11/22 15:32 BMI result Body Mass Index 18.8 <ALEX Garzon - Last Filed: 01/11/22 17:50> Vital Signs: Last Vital Signs Temp 97.8 F 01/11/22 14:44 Pulse 72 01/11/22 17:03 Resp 13 01/11/22 17:03 BP 73/52 L 01/11/22 17:03 Pulse Ox 95 01/11/22 17:03 O2 Del Method 01/11/22 17:03 O2 Flow Rate 3 01/11/22 15:32 BMI result Body Mass Index 18.8 <ALEX Espitia - Last Filed: 01/11/22 20:56> Appearance: Lethargic, chronically ill-appearing, frail and cachectic elderly male lying on the stretcher. Bruising on the middle of his forehead. Eyes: Pupils equal, round and reactive to light. Right eyelid droop. ENT: Pharynx with poor dentition, dry mucous membranes. Neck: no JVD. supple, no LAD Chest wall: open circular surgical fistula site with white pigmentation and rolled borders, tissue is pink, clear discharge CVS: Normal heart rate and rhythm. Pulses normal. Respiratory: No respiratory distress. Breath sounds diminished at the bases, no rales or rhonchi Abdomen: cachetic, concave, J-tube in place. mild diffuse tenderness, no rebound or guarding. hyperactive BS x4. Skin: Skin warm and dry. Normal skin color. Poor skin turgor. No rashes. Extremities: Thin, frail, muscle wasting present in all 4 extremities Neuro: Oriented X 3. globally weak, able to briefly lift each leg up off the stretcher, unable to resist against any gravity. Equal but weak symmetrical hand grasp. Answers questions appropriate <ALEX Garzon - Last Filed: 01/11/22 17:50> Course Course Course Narrative: 71-year-old male with multiple medical comorbidities including ESRD on HD, chronic hypotension chronic AFib on Coumadin, Borhaave's s/p esophagectomy gastrectomy requirng J-tube with severe protein calorie malnutrition and cachexia coming into the ER for evaluation of lethargy, hypoxia and hypotension at his SNF today. He was reportedly hypoxic to 41% and hypotensive with systolics in the 50s. Patient is chronically hypotensive on midodrine therapy. His baseline systolic blood pressures from prior ER visits appear to be 70s to 80s. On arrival to the ER patient was hypotensive 68/42, saturating at 98% on room air. He was lethargic but easily arousable and oriented x3, warm and well perf used with a palpable radial pulse. Repeat BP 70s then 80s. His PO midodrine as been ordered as well as vial of albumin 25g. Will repeat labs today and closely monitor for decompensation. <ALEX Garzon - Last Filed: 01/11/22 17:50> Reevaluation(s) Reevaluation #1: BP dropped again to 60/40s. He is sleeping and not arousable to verbal stimuli. Slept through IV stick in the foot. Concern for hypoperfusion and acute metabolic encephalopathy due to his hypotension. This does not appear to be his baseline. Upon review of records his blood pressure was in the 80s and 90 systolic and ER visit last week (although 60-70s yesterday). He is very let hargic today. Lab workup showing an increase in his WBC is 19.1K. Will need to proceed with treatment as if this is possible septic shock, although there is no source of infection identifted at this time and he is afebrile. Will give 1 L IV fluids and reassess his hemodyamics and respiratory status. If no improvement will plan to start Levophed for vasopressor support. Will empirically start IV vanco and Zosyn for broad coverage. ICU consulted for evaluation <ALEX Garzon - Last Filed: 01/11/22 17:50> Reevaluation #2: Dr. Betts evaluated the patient at the bedside. His has a collapsible IVC and IJ consistent with volume depletion. He is warm and seems to be warm and well perfused with lactic acid 1.5. He has palpable peripheral pulses and does not appear to be vasocontricted peripherally. Picture does not completely match up with sepsis given his PE findings. Does not appear to be in cargiogenic shock either with his warm extremities. Recommendations from ICU: 1L IVF and reassess volume status. Rec d51/2NS @ 80 cc/hr for maintainence Place IJ TLC for IV access and potential need for vasopressors check random cortisol and start hydrocortisone for possible adrenal insuffiency. will re-evaluate and consider ICU admission if he does not improve with IVF. CT scans are pending to look for source of infection. He is anuric. He is due to get HD tomorrow. May need to increase his midodrine to be able to tolerate HD, max 40 q8 if HR allows. will give another 20 mg midodrine via J tube now <ALEX Garzon - Last Filed: 01/11/22 17:50> Reevaluation #3: IJ placed. Patient taken to CT scan. His BP is improving with fluids. Hopeful he will be able to be admitted to the floor for ongoing volume repletion and close montioring. <ALEX Garzon - Last Filed: 01/11/22 17:50> Additional Reevaluation(s): 2053--CT abdomen pelvis wo con/CT chest wo con IMPRESSION: *? Mild diffuse bronchial thickening as can be seen with mild bronchitis and chronic airways disease. *? Ascending aortic aneurysm measures 4.5 cm. *? Again seen is circumferential short segment wall thickening of the ascending colon, which appears longer segment than on the prior examination raising the possibility of colitis, which could be infectious, ischemic or inflammatory. There does appear to be an underlying mass in the same region of the ascending colon as discussed previously. *? Possible segmental wall thickening of the mid sigmoid colon could represent an additional site of colitis. *? Cholelithiasis. > spoke with Dr. Betts again regarding patient who believes he does not meet ICU criteria due to chronic hypotension. ICU ALEX Collins also evaluated patient in the ED and is in agreement. Patient admitted to hospitalist for further management <ALEX Espitia - Last Filed: 01/11/22 20:56> Consultations Consultation #1: Dr. Betts - critical care <ALEX Garzon - Last Filed: 01/11/22 17:50> MDM - Weakness Medical Records Attestation: I reviewed the patient's medical records. <ALEX Garzon - Last Filed: 01/11/22 17:50> Lab Data Attestation: I reviewed the patient's lab results. <ALEX Garzon - Last Filed: 01/11/22 17:50> Result diagrams: : 01/11/22 16:16 01/11/22 16:16 <ALEX Garzon - Last Filed: 01/11/22 17:50> Labs: Lab Results 01/11/22 01/11/22 01/11/22 Range/Units 14:19 15:52 16:16 WBC 19.1 H (4.8-10.8) X10*3/uL RBC 3.89 L (4.60-5.80) X10*6/uL Hgb 11.9 L (14.0-18.0) g/dl Hct 38.0 L (42.0-52.0) % MCV 97.7 (80.0-98.0) fL MCH 30.6 (27.0-33.0) pg MCHC 31.3 (31.0-36.0) g/dl RDW 16.5 H (11.0-16.0) % Plt Count 248 (160-400) X10*3/uL MPV 10.1 (9.4-12.4) fL Immature Gran % (Auto) 0.7 H (0.0-0.4) % Neut % (Auto) 85.2 H (45-73) % Lymph % (Auto) 8.8 L (20-40) % Smyth % (Auto) 4.4 (2-11) % Eos % (Auto) 0.4 (0-4) % Baso % (Auto) 0.5 (0-2) % Lymph # (Auto) 1.7 (1.2-4.9) X10*3/uL Smyth # (Auto) 0.8 (0.1-1.2) X10*3/uL Eos # (Auto) 0.1 (0.0-0.4) X10*3/uL Baso # (Auto) 0.1 (0.0-0.2) X10*3/uL Abs Immat Gran (auto) 0.14 H (0.00-0.03) X10*3/uL Absolute Neuts (auto) 16.2 H (2.0-8.3) x10*3/uL Absolute Nucleated RBC 0.000 (0.0-0.012) X10*3/uL Nucleated RBC % (auto) 0.0 (0.0-0.2) /100WBC PT (10.0-13.1) SEC INR (0.9-1.1) APTT (26.0-36.4) SEC Sodium (135-145) mmol/L Potassium (3.3-5.1) mmol/L Chloride (96-108) mmol/L Carbon Dioxide (22-29) mmol/L Anion Gap (12-20) BUN (9-16) mg/dL Creatinine (0.5-1.4) mg/dL Estim Creat Clear Calc Estimated GFR POC Glucose 99 (60-115) mg/dL Random Glucose (60-115) mg/dL Lactic Acid (0.5-2.0) mmol/L Calcium (8.4-10.2) mg/dL Magnesium (1.6-2.6) mg/dL Total Bilirubin (0.0-1.0) mg/dL Direct Bilirubin (0.0-0.5) mg/dL AST (5-37) U/L ALT (0-40) U/L Alkaline Phosphatase (39-117) U/L Total Protein (6.5-8.0) g/dL Albumin (3.5-5.0) g/dL TSH (0.32-4.0) uIU/mL Random Cortisol ug/dL COVID-19 (ELISABETH) Negative (Negative) COVID-19 Clin Com See Note 01/11/22 01/11/22 01/11/22 Range/Units 16:16 16:16 16:16 WBC (4.8-10.8) X10*3/uL RBC (4.60-5.80) X10*6/uL Hgb (14.0-18.0) g/dl Hct (42.0-52.0) % MCV (80.0-98.0) fL MCH (27.0-33.0) pg MCHC (31.0-36.0) g/dl RDW (11.0-16.0) % Plt Count (160-400) X10*3/uL MPV (9.4-12.4) fL Immature Gran % (Auto) (0.0-0.4) % Neut % (Auto) (45-73) % Lymph % (Auto) (20-40) % Smyth % (Auto) (2-11) % Eos % (Auto) (0-4) % Baso % (Auto) (0-2) % Lymph # (Auto) (1.2-4.9) X10*3/uL Smyth # (Auto) (0.1-1.2) X10*3/uL Eos # (Auto) (0.0-0.4) X10*3/uL Baso # (Auto) (0.0-0.2) X10*3/uL Abs Immat Gran (auto) (0.00-0.03) X10*3/uL Absolute Neuts (auto) (2.0-8.3) x10*3/uL Absolute Nucleated RBC (0.0-0.012) X10*3/uL Nucleated RBC % (auto) (0.0-0.2) /100WBC PT 47.7 H (10.0-13.1) SEC INR 3.9 H (0.9-1.1) APTT 47.8 H (26.0-36.4) SEC Sodium 145 (135-145) mmol/L Potassium 3.0 L (3.3-5.1) mmol/L Chloride 107 (96-108) mmol/L Carbon Dioxide 18 L (22-29) mmol/L Anion Gap 23 H (12-20) BUN 40 H D (9-16) mg/dL Creatinine 6.81 H* (0.5-1.4) mg/dL Estim Creat Clear Calc 7.4 Estimated GFR 8 POC Glucose (60-115) mg/dL Random Glucose 97 (60-115) mg/dL Lactic Acid 1.5 (0.5-2.0) mmol/L Calcium 8.7 (8.4-10.2) mg/dL Magnesium 2.1 (1.6-2.6) mg/dL Total Bilirubin 0.5 (0.0-1.0) mg/dL Direct Bilirubin 0.3 (0.0-0.5) mg/dL AST 25 (5-37) U/L ALT 26 (0-40) U/L Alkaline Phosphatase 124 H (39-117) U/L Total Protein 6.5 (6.5-8.0) g/dL Albumin 3.9 (3.5-5.0) g/dL TSH 1.00 (0.32-4.0) uIU/mL Random Cortisol ug/dL COVID-19 (ELISABETH) (Negative) COVID-19 Clin Com 01/11/22 Range/Units Unknown WBC (4.8-10.8) X10*3/uL RBC (4.60-5.80) X10*6/uL Hgb (14.0-18.0) g/dl Hct (42.0-52.0) % MCV (80.0-98.0) fL MCH (27.0-33.0) pg MCHC (31.0-36.0) g/dl RDW (11.0-16.0) % Plt Count (160-400) X10*3/uL MPV (9.4-12.4) fL Immature Gran % (Auto) (0.0-0.4) % Neut % (Auto) (45-73) % Lymph % (Auto) (20-40) % Smyth % (Auto) (2-11) % Eos % (Auto) (0-4) % Baso % (Auto) (0-2) % Lymph # (Auto) (1.2-4.9) X10*3/uL Smyth # (Auto) (0.1-1.2) X10*3/uL Eos # (Auto) (0.0-0.4) X10*3/uL Baso # (Auto) (0.0-0.2) X10*3/uL Abs Immat Gran (auto) (0.00-0.03) X10*3/uL Absolute Neuts (auto) (2.0-8.3) x10*3/uL Absolute Nucleated RBC (0.0-0.012) X10*3/uL Nucleated RBC % (auto) (0.0-0.2) /100WBC PT (10.0-13.1) SEC INR (0.9-1.1) APTT (26.0-36.4) SEC Sodium (135-145) mmol/L Potassium (3.3-5.1) mmol/L Chloride (96-108) mmol/L Carbon Dioxide (22-29) mmol/L Anion Gap (12-20) BUN (9-16) mg/dL Creatinine (0.5-1.4) mg/dL Estim Creat Clear Calc Estimated GFR POC Glucose (60-115) mg/dL Random Glucose (60-115) mg/dL Lactic Acid (0.5-2.0) mmol/L Calcium (8.4-10.2) mg/dL Magnesium (1.6-2.6) mg/dL Total Bilirubin (0.0-1.0) mg/dL Direct Bilirubin (0.0-0.5) mg/dL AST (5-37) U/L ALT (0-40) U/L Alkaline Phosphatase (39-117) U/L Total Protein (6.5-8.0) g/dL Albumin (3.5-5.0) g/dL TSH (0.32-4.0) uIU/mL Random Cortisol 14.7 ug/dL COVID-19 (ELISABETH) (Negative) COVID-19 Clin Com <ALEX Garzon - Last Filed: 01/11/22 17:50> Lab Results 01/11/22 01/11/22 01/11/22 Range/Units 14:19 15:52 16:16 WBC 19.1 H (4.8-10.8) X10*3/uL RBC 3.89 L (4.60-5.80) X10*6/uL Hgb 11.9 L (14.0-18.0) g/dl Hct 38.0 L (42.0-52.0) % MCV 97.7 (80.0-98.0) fL MCH 30.6 (27.0-33.0) pg MCHC 31.3 (31.0-36.0) g/dl RDW 16.5 H (11.0-16.0) % Plt Count 248 (160-400) X10*3/uL MPV 10.1 (9.4-12.4) fL Immature Gran % (Auto) 0.7 H (0.0-0.4) % Neut % (Auto) 85.2 H (45-73) % Lymph % (Auto) 8.8 L (20-40) % Smyth % (Auto) 4.4 (2-11) % Eos % (Auto) 0.4 (0-4) % Baso % (Auto) 0.5 (0-2) % Lymph # (Auto) 1.7 (1.2-4.9) X10*3/uL Smyth # (Auto) 0.8 (0.1-1.2) X10*3/uL Eos # (Auto) 0.1 (0.0-0.4) X10*3/uL Baso # (Auto) 0.1 (0.0-0.2) X10*3/uL Abs Immat Gran (auto) 0.14 H (0.00-0.03) X10*3/uL Absolute Neuts (auto) 16.2 H (2.0-8.3) x10*3/uL Absolute Nucleated RBC 0.000 (0.0-0.012) X10*3/uL Nucleated RBC % (auto) 0.0 (0.0-0.2) /100WBC PT (10.0-13.1) SEC INR (0.9-1.1) APTT (26.0-36.4) SEC Sodium (135-145) mmol/L Potassium (3.3-5.1) mmol/L Chloride (96-108) mmol/L Carbon Dioxide (22-29) mmol/L Anion Gap (12-20) BUN (9-16) mg/dL Creatinine (0.5-1.4) mg/dL Estim Creat Clear Calc Estimated GFR POC Glucose 99 (60-115) mg/dL Random Glucose (60-115) mg/dL Lactic Acid (0.5-2.0) mmol/L Calcium (8.4-10.2) mg/dL Magnesium (1.6-2.6) mg/dL Total Bilirubin (0.0-1.0) mg/dL Direct Bilirubin (0.0-0.5) mg/dL AST (5-37) U/L ALT (0-40) U/L Alkaline Phosphatase (39-117) U/L Total Protein (6.5-8.0) g/dL Albumin (3.5-5.0) g/dL TSH (0.32-4.0) uIU/mL Random Cortisol ug/dL COVID-19 (ELISABETH) Negative (Negative) COVID-19 Clin Com See Note 01/11/22 01/11/22 01/11/22 Range/Units 16:16 16:16 16:16 WBC (4.8-10.8) X10*3/uL RBC (4.60-5.80) X10*6/uL Hgb (14.0-18.0) g/dl Hct (42.0-52.0) % MCV (80.0-98.0) fL MCH (27.0-33.0) pg MCHC (31.0-36.0) g/dl RDW (11.0-16.0) % Plt Count (160-400) X10*3/uL MPV (9.4-12.4) fL Immature Gran % (Auto) (0.0-0.4) % Neut % (Auto) (45-73) % Lymph % (Auto) (20-40) % Smyth % (Auto) (2-11) % Eos % (Auto) (0-4) % Baso % (Auto) (0-2) % Lymph # (Auto) (1.2-4.9) X10*3/uL Smyth # (Auto) (0.1-1.2) X10*3/uL Eos # (Auto) (0.0-0.4) X10*3/uL Baso # (Auto) (0.0-0.2) X10*3/uL Abs Immat Gran (auto) (0.00-0.03) X10*3/uL Absolute Neuts (auto) (2.0-8.3) x10*3/uL Absolute Nucleated RBC (0.0-0.012) X10*3/uL Nucleated RBC % (auto) (0.0-0.2) /100WBC PT 47.7 H (10.0-13.1) SEC INR 3.9 H (0.9-1.1) APTT 47.8 H (26.0-36.4) SEC Sodium 145 (135-145) mmol/L Potassium 3.0 L (3.3-5.1) mmol/L Chloride 107 (96-108) mmol/L Carbon Dioxide 18 L (22-29) mmol/L Anion Gap 23 H (12-20) BUN 40 H D (9-16) mg/dL Creatinine 6.81 H* (0.5-1.4) mg/dL Estim Creat Clear Calc 7.4 Estimated GFR 8 POC Glucose (60-115) mg/dL Random Glucose 97 (60-115) mg/dL Lactic Acid 1.5 (0.5-2.0) mmol/L Calcium 8.7 (8.4-10.2) mg/dL Magnesium 2.1 (1.6-2.6) mg/dL Total Bilirubin 0.5 (0.0-1.0) mg/dL Direct Bilirubin 0.3 (0.0-0.5) mg/dL AST 25 (5-37) U/L ALT 26 (0-40) U/L Alkaline Phosphatase 124 H (39-117) U/L Total Protein 6.5 (6.5-8.0) g/dL Albumin 3.9 (3.5-5.0) g/dL TSH 1.00 (0.32-4.0) uIU/mL Random Cortisol ug/dL COVID-19 (ELISABETH) (Negative) COVID-19 Clin Com 01/11/22 Range/Units Unknown WBC (4.8-10.8) X10*3/uL RBC (4.60-5.80) X10*6/uL Hgb (14.0-18.0) g/dl Hct (42.0-52.0) % MCV (80.0-98.0) fL MCH (27.0-33.0) pg MCHC (31.0-36.0) g/dl RDW (11.0-16.0) % Plt Count (160-400) X10*3/uL MPV (9.4-12.4) fL Immature Gran % (Auto) (0.0-0.4) % Neut % (Auto) (45-73) % Lymph % (Auto) (20-40) % Smyth % (Auto) (2-11) % Eos % (Auto) (0-4) % Baso % (Auto) (0-2) % Lymph # (Auto) (1.2-4.9) X10*3/uL Smyth # (Auto) (0.1-1.2) X10*3/uL Eos # (Auto) (0.0-0.4) X10*3/uL Baso # (Auto) (0.0-0.2) X10*3/uL Abs Immat Gran (auto) (0.00-0.03) X10*3/uL Absolute Neuts (auto) (2.0-8.3) x10*3/uL Absolute Nucleated RBC (0.0-0.012) X10*3/uL Nucleated RBC % (auto) (0.0-0.2) /100WBC PT (10.0-13.1) SEC INR (0.9-1.1) APTT (26.0-36.4) SEC Sodium (135-145) mmol/L Potassium (3.3-5.1) mmol/L Chloride (96-108) mmol/L Carbon Dioxide (22-29) mmol/L Anion Gap (12-20) BUN (9-16) mg/dL Creatinine (0.5-1.4) mg/dL Estim Creat Clear Calc Estimated GFR POC Glucose (60-115) mg/dL Random Glucose (60-115) mg/dL Lactic Acid (0.5-2.0) mmol/L Calcium (8.4-10.2) mg/dL Magnesium (1.6-2.6) mg/dL Total Bilirubin (0.0-1.0) mg/dL Direct Bilirubin (0.0-0.5) mg/dL AST (5-37) U/L ALT (0-40) U/L Alkaline Phosphatase (39-117) U/L Total Protein (6.5-8.0) g/dL Albumin (3.5-5.0) g/dL TSH (0.32-4.0) uIU/mL Random Cortisol 14.7 ug/dL COVID-19 (ELISABETH) (Negative) COVID-19 Clin Com <ALEX Espitia - Last Filed: 01/11/22 20:56> ECG Data Attestation: I personally reviewed and interpreted this ECG as follows: <ALEX Garzon - Last Filed: 01/11/22 17:50> ECG interpretation date: 01/11/22 <ALEX Garzon - Last Filed: 01/11/22 17:50> ECG interpretation time: 15:02 <ALEX Garzon Last Filed: 01/11/22 17:50> Interpretation: Sinus rhythm with first-degree AV block, heart rate 71 beats per minute, OR interval prolonged 234 ms, prolonged QTC 502 ms, no ST segment elevations <ALEX Garzon Last Filed: 01/11/22 17:50> Procedures Central Line Placement Right IJ: Patient Placed on Monitor/Pulse Ox: Yes <ALEX Espitia - Last Filed: 01/11/22 20:56> MD Prep: mask, gown and gloves <ALEX Espitia Last Filed: 01/11/22 20:56> Central Line Prep: Chlorhexidine scrub <ALEX Espitia - Last Filed: 01/11/22 20:56> Local Anesthetic: lidocaine 1% <ALEX Espitia - Last Filed: 01/11/22 20:56> Amount of anesthesia used (mL): 3 <ALEX Espitia - Last Filed: 01/11/22 20:56> Ultrasound Used for Placement: Yes <ALEX Espitia Last Filed: 01/11/22 20:56> Central Line Lumen Inserted: triple <ALEX Espitia - Last Filed: 01/11/22 20:56> Post Procedure: sutured in place, good blood return, all ports aspirated, flushed, capped and sterile dressing applied <ALEX Espitia Last Filed: 01/11/22 20:56> Post Procedure X-Ray: tip of catheter in good position <ALEX Espitia Last Filed: 01/11/22 20:56> Patient Tolerated Procedure: well and no complications <ALEX Espitia Last Filed: 01/11/22 20:56> Complications: none <ALEX Espitia Last Filed: 01/11/22 20:56> Critical Care Time Critical Care Time Critical Care Time: Yes <ALEX Garzon Last Filed: 01/11/22 17:50> Total Critical Care Time: 48 <ALEX Garzon Last Filed: 01/11/22 17:50> Attestation: I have personally provided critical care time exclusive of time spent on separately billable procedures. Time includes review of lab data, radiology results, discussion with consultants, and monitoring for potential decompensation. Intervention performed as documented. <ALEX Garzon Last Filed: 01/11/22 17:50> Discharge Plan Discharge Clinical Impression: Acute hypotension, Lethargic, Weakness, Adult failure to thrive, Leukocytosis, Hypovolemia, Colitis <ALEX Garzon Last Filed: 01/11/22 17:50> Patient Disposition: Admitted As Inpatient <ALEX Garzon Last Filed: 01/11/22 17:50> Prescriptions: No Action quetiapine 25 mg Tablet 25 mg feeding tube BID Rx Instructions: x 14 days olanzapine 5 mg tablet 5 mg feeding tube Q4H PRN (Reason: Agitation) Rx Instructions: max 2 doses per 24 hrs cyanocobalamin (vitamin B-12) 1,000 mcg Tablet 1,000 mcg feeding tube DAILY melatonin 3 mg tablet 2 tab feeding tube BEDTIME lamotrigine 25 mg Tablet, Chewable Dispersible 200 mg feeding tube DAILY warfarin 6 mg Tablet 6 mg feeding tube DAILY@1800 famotidine 20 mg Tablet 20 mg feeding tube DAILY Rx Instructions: J tube docusate sodium [Colace] 100 mg capsule 100 mg PO BID Rx Instructions: via j tube olanzapine 15 mg Tablet 15 mg feeding tube BEDTIME Renal Caps 1 mg Capsule 1 cap feeding tube DAILY fludrocortisone 0.1 mg tablet 2 tab feeding tube BID midodrine 10 mg Tablet 10 mg feeding tube DAILY Rx Instructions: do not give last dose of day after 6PM or within 4 hrs of bedtime doxycycline hyclate 100 mg tablet 100 mg feeding tube BID <ALEX Garzon Last Filed: 01/11/22 17:50>
[2022-01-11 14:33] LABS: Glucose, Whole Blood 99 mg/dL (60-115)
--- NOTE | 2022-01-11 15:08 | PC.NURSE ---
large very loose, water diarreah. pt cleansed. iv established. remains axox3.
[2022-01-11] MEDS: Albumin Human 25 % 100 ML IV (15:24)
[2022-01-11] MEDS: Midodrine HCl 10 MG TABLET G-TUBE (15:26)
--- NOTE | 2022-01-11 16:13 | PC.NURSE ---
Pt has been a difficult stick. PA currently attempting EJ. Pt remains alert. oriented x 4.
[2022-01-11 16:17] LABS: COVID-19 Test Negative (Negative)
[2022-01-11 16:23] LABS: Basophils Absolute Auto 0.1 X10*3/uL (0.0-0.2); Basophils Percent Auto 0.5 % (0-2); Eosinophils Absolute Auto 0.1 X10*3/uL (0.0-0.4); Eosinophils Percent Auto 0.4 % (0-4); Hemoglobin 11.9 g/dl (14.0-18.0); Imm Gran Abs Auto 0.14 X10*3/uL (0.00-0.03); Imm Gran Pct Auto 0.7 % (0.0-0.4); Lymphocytes Absolute Auto 1.7 X10*3/uL (1.2-4.9); Lymphocytes Percent Auto 8.8 % (20-40); MANUAL DIFF FLAG NO; Mean Corpuscular HGB Conc 31.3 g/dl (31.0-36.0); Mean Corpuscular Hemoglobin 30.6 pg (27.0-33.0); Mean Corpuscular Volume 97.7 fL (80.0-98.0); Mean Platelet Volume 10.1 fL (9.4-12.4); Monocytes Absolute Auto 0.8 X10*3/uL (0.1-1.2); Monocytes Percent Auto 4.4 % (2-11); Neutrophils Absolute Auto 16.2 x10*3/uL (2.0-8.3); Neutrophils Percent Auto 85.2 % (45-73); Platelet Count 248 X10*3/uL (160-400); Red Blood Count 3.89 X10*6/uL (4.60-5.80); Red Cell Distribution Width 16.5 % (11.0-16.0); White Blood Count 19.1 X10*3/uL (4.8-10.8)
--- NOTE | 2022-01-11 16:25 | PHA.MEDREC ---
Pharmacy Consult ? Medication Reconciliation Pharmacy has completed the medication reconciliation. list from [facility].
[2022-01-11 16:29] LABS: INTERNATIONAL NORM RATIO 3.9 (0.9-1.1); Prothrombin Time 47.7 SEC (10.0-13.1)
[2022-01-11 16:32] LABS: Partial Thromboplastin Time 47.8 SEC (26.0-36.4)
[2022-01-11 16:34] LABS: Lactic Acid 1.5 mmol/L (0.5-2.0)
[2022-01-11 16:46] LABS: Alanine Aminotransferase 26 U/L (0-40); Albumin Level 3.9 g/dL (3.5-5.0); Alkaline Phosphatase 124 U/L (39-117); Anion Gap 23 (12-20); Aspartate Amino Transferase 25 U/L (5-37); Bilirubin Direct 0.3 mg/dL (0.0-0.5); Bilirubin Total 0.5 mg/dL (0.0-1.0); Blood Urea Nitrogen 40 mg/dL (9-16); Calcium 8.7 mg/dL (8.4-10.2); Carbon Dioxide 18 mmol/L (22-29); Chloride 107 mmol/L (96-108); Creatinine Clr Calc Pharmacy 7.4; Estimated Glomerular Filt Rate 8; Glucose Random 97 mg/dL (60-115); Magnesium 2.1 mg/dL (1.6-2.6); Sodium 145 mmol/L (135-145); Total Protein 6.5 g/dL (6.5-8.0)
[2022-01-11] MEDS: Midodrine HCl 10 MG TABLET 20 MG G-TUBE (17:00)
[2022-01-11] MEDS: Piperacillin Sodium/Tazobactam 4.5 GM in 0.9 % Sodium Chloride 100 ML IV (17:00)
[2022-01-11] MEDS: 0.9 % Sodium Chloride 1,000 ML 500 ML IVCONT (17:02)
[2022-01-11] MEDS: vancomycin HCL 1,250 MG in 0.9 % Sodium Chloride 250 ML 166.67 MG IV (17:48)
[2022-01-11 18:28] LABS: Cortisol Random 14.7 ug/dL
[2022-01-11] MEDS: Hydrocortisone Sod Succ/PF 100 MG VIAL IVPUSH (20:37)
--- NOTE | 2022-01-11 21:55 | P.HPHOSP_ITS ---
History of Present Illness Date of Service: 01/11/22 Chief Complaint: hypotension 71-year-old male with past medical history of ESRD on dialysis, Wednesday, chronic hypotension, diabetes, HELLP syndrome status post esophagectomy, gastrectomy status post a G-tube, chronic cachexia with severe protein calorie malnutrition, AFib on Coumadin, COPD, TIA, HLD, schizophrenia, COVID-19 infection in May 2019 to presents to the hospital from [facility] for reported lethargy and worsening weakness. He was reportedly found to have an oxygen saturation of 40% on room air, unclear how accurate as patient has been satting in the high 90s and room air at the hospital. Patient has had multiple presentations to the hospital for the same complaint but found to have chronic hypotension and sent back, this is his 4th visit within the past week. Patient is sleeping but arousable, wakes up and answers questions somewhat appropriately. He answers yes and no to simple straightforward questions, he reports that he was sent into the hospital because he was hypotensive, he denies having any shortness of breath, no chest pain, no abdominal pain nausea or vomiting, he had multiple episodes of diarrhea in the ED but patient himself reports no diarrhea. Patient receive tube feeds 4 times per day, was reported that he has been losing weight since October. On arrival to the ED his vitals show a BP of 68/40 to with all other vitals stable satting 98% on room air Labs are significant for WBC count of 19.1 which was 15 on 01/10, hematocrit of 38, there is neutrophil the shift INR 3.9, creatinine of 6.81, labs otherwise unremarkable Imaging including abdomen pelvis CT as well as chest CT showed mild diffuse bronchial thickening that can be seen with mild bronchitis, patient also seen circumferential short segment wall thickening of the ascending colon with segmental wall thickening of the mid sigmoid colon, it appears worsened and could represent colitis. Infectious versus ischemic versus inflammatory. There is also an underlying mass in the same region of the ascending colon as discussed on previous report Given worsening leukocytosis and worsening finding of colitis patient will be admitted for further management Review of Systems Review of Systems: Yes all other systems are reviewed and are negative [facility] Medical History (Updated 01/12/22 @ 07:18 by Sandie Rodgers MD) Chronic hypotension COPD (chronic obstructive pulmonary disease) COVID-19 virus infection Diabetes ESRD on dialysis History of gastrectomy History of TIA (transient ischemic attack) HLD (hyperlipidemia) Jejunostomy tube present Schizophrenic disorder Severe protein-calorie malnutrition Pertinent family history: Unknown Surgical History (Updated 01/12/22 @ 07:17 by Sandie Rodgers MD) H/O esophagectomy Social History Alcohol intake: former Patient Tobacco Use Status: Former Tobacco user Use of substances other than those prescribed or required for medical reasons: No Advance Directives: Yes Advance Directives on File: Yes Advance Directives Date on File: 01/04/22 Meds Allergies Allergy/AdvReac Type Severity Reaction Status Date / Time NICK Inhibitors Allergy Unknown Unknown Verified 01/11/22 14:14 aspirin Allergy Unknown Unknown Verified 01/11/22 14:14 divalproex sodium Allergy Unknown Unknown Verified 01/11/22 14:14 valproic acid Allergy Unknown Unknown Verified 01/11/22 14:14 Active Medications: Current Medications Pharmacy Consult (Consult Rx Perform Med Rec) 1 each MISCELLANE ONCE PRN PRN Reason: Consult order Home Medications Medication Instructions Recorded Confirmed Last Taken Type cyanocobalamin (vitamin B-12) 1,000 mcg feeding tube DAILY 01/11/22 01/11/22 01/11/22 History 1,000 mcg tablet docusate sodium 100 mg capsule 100 mg PO BID 01/11/22 01/11/22 01/11/22 History (Colace) doxycycline hyclate 100 mg tablet 100 mg feeding tube BID 01/11/22 01/11/22 01/11/22 History famotidine 20 mg tablet 20 mg feeding tube DAILY 01/11/22 01/11/22 01/11/22 History fludrocortisone 0.1 mg tablet 2 tab feeding tube BID 01/11/22 01/11/22 01/11/22 History lamotrigine 25 mg chewable 200 mg feeding tube DAILY 01/11/22 01/11/22 01/11/22 History dispersible tablet melatonin 3 mg tablet 2 tab feeding tube BEDTIME 01/11/22 01/11/22 01/10/22 Hist ory midodrine 10 mg tablet 10 mg feeding tube DAILY 01/11/22 01/11/22 01/09/22 History olanzapine 15 mg tablet 15 mg feeding tube BEDTIME 01/11/22 01/11/22 01/09/22 History olanzapine 5 mg tablet 5 mg feeding tube Q4H PRN Agitation 01/11/22 01/11/22 01/11/22 History quetiapine 25 mg tablet 25 mg feeding tube BID 01/11/22 01/11/22 01/10/22 History vitamin B complex and vitamin C 1 cap feeding tube DAILY 01/11/22 01/11/22 01/10/22 History no.20-folic acid 1 mg capsule (Renal Caps) warfarin 6 mg tablet 6 mg feeding tube DAILY@1800 01/11/22 01/11/22 01/10/22 History Physical Exam Vital Signs and Narrative: Vital Signs: Last Vital Signs Temp 97.8 F 01/11/22 14:44 Pulse 72 01/11/22 17:03 Resp 13 01/11/22 17:03 BP 73/52 L 01/11/22 17:03 Pulse Ox 95 01/11/22 17:03 O2 Del Method 01/11/22 17:03 O2 Flow Rate 3 01/11/22 15:32 BMI result Body Mass Index 18.8 Const: General: cooperative and no acute distress Orientation/consciousness: patient oriented x3 Eyes: General: appearance normal, both eyes and all related structures Resp: Effort & Inspection: normal respiratory effort Cardio: Rate: regular rate Rhythm: regular rhythm GI: Other: J-tube in place Palpation (GI): Soft to palpation Auscultation: normal bowel sounds Skin: General skin exam: no rashes or lesions noted Neuro: General: patient oriented x3 Cognition (Neuro): normal cognition Extrem: General: Yes normal to inspection and Yes no pedal edema Results Labs CBC and Chem 7: 01/12/22 04:30 01/11/22 16:16 Labs: Laboratory Results - last 24 hr 01/11/22 01/11/22 01/11/22 14:19 15:52 16:16 MCV 97.7 MCH 30.6 MCHC 31.3 RDW 16.5 H Plt Count 248 MPV 10.1 Immature Gran % (Auto) 0.7 H Neut % (Auto) 85.2 H Lymph % (Auto) 8.8 L [place] % (Auto) 4.4 Eos % (Auto) 0.4 Baso % (Auto) 0.5 Lymph # (Auto) 1.7 [place] # (Auto) 0.8 Eos # (Auto) 0.1 Baso # (Auto) 0.1 Abs Immat Gran (auto) 0.14 H Absolute Neuts (auto) 16.2 H Absolute Nucleated RBC 0.000 Nucleated RBC % (auto) 0.0 PT INR APTT Anion Gap Estim Creat Clear Calc Estimated GFR POC Glucose 99 Random Glucose Lactic Acid Calcium Magnesium Total Bilirubin Direct Bilirubin AST ALT Alkaline Phosphatase Total Protein Albumin TSH Random Cortisol COVID-19 (ELISABETH) Negative COVID-19 Clin Com See Note 01/11/22 01/11/22 01/11/22 16:16 16:16 16:16 MCV MCH MCHC RDW Plt Count MPV Immature Gran % (Auto) Neut % (Auto) Lymph % (Auto) [place] % (Auto) Eos % (Auto) Baso % (Auto) Lymph # (Auto) [place] # (Auto) Eos # (Auto) Baso # (Auto) Abs Immat Gran (auto) Absolute Neuts (auto) Absolute Nucleated RBC Nucleated RBC % (auto) PT 47.7 H INR 3.9 H APTT 47.8 H Anion Gap 23 H Estim Creat Clear Calc 7.4 Estimated GFR 8 POC Glucose Random Glucose 97 Lactic Acid 1.5 Calcium 8.7 Magnesium 2.1 Total Bilirubin 0.5 Direct Bilirubin 0.3 AST 25 ALT 26 Alkaline Phosphatase 124 H Total Protein 6.5 Albumin 3.9 TSH 1.00 Random Cortisol COVID-19 (ELISABETH) COVID-19 [employer] Com 01/11/22 Unknown MCV MCH MCHC RDW Plt Count MPV Immature Gran % (Auto) Neut % (Auto) Lymph % (Auto) [place] % (Auto) Eos % (Auto) Baso % (Auto) Lymph # (Auto) [place] # (Auto) Eos # (Auto) Baso # (Auto) Abs Immat Gran (auto) Absolute Neuts (auto) Absolute Nucleated RBC Nucleated RBC % (auto) PT INR APTT Anion Gap Estim Creat Clear Calc Estimated GFR POC Glucose Random Glucose Lactic Acid Calcium Magnesium Total Bilirubin Direct Bilirubin AST ALT Alkaline Phosphatase Total Protein Albumin TSH Random Cortisol 14.7 COVID-19 (ELISABETH) COVID-19 Clin Com Imaging Radiologist's Impressions: Impressions Chest CT 01/11/22 19:21 IMPRESSION: * Mild diffuse bronchial thickening as can be seen with mild bronchitis and chronic airways disease. * Ascending aortic aneurysm measures 4.5 cm. * Again seen is circumferential short segment wall thickening of the ascending colon, which appears longer segment than on the prior examination raising the possibility of colitis, which could be infectious, ischemic or inflammatory. There does appear to be an underlying mass in the same region of the ascending colon as discussed previously. * Possible segmental wall thickening of the mid sigmoid colon could represent an additional site of colitis. * Cholelithiasis. This result was discussed with Sally JOHNSON at 01/11/2022 8:00 PM and it was ascertained that the content and urgency of the report was understood at the time of direct communication. Abdomen/Pelvis CT 01/11/22 19:27 IMPRESSION: * Mild diffuse bronchial thickening as can be seen with mild bronchitis and chronic airways disease. * Ascending aortic aneurysm measures 4.5 cm. * Again seen is circumferential short segment wall thickening of the ascending colon, which appears longer segment than on the prior examination raising the possibility of colitis, which could be infectious, ischemic or inflammatory. There does appear to be an underlying mass in the same region of the ascending colon as discussed previously. * Possible segmental wall thickening of the mid sigmoid colon could represent an additional site of colitis. * Cholelithiasis. This result was discussed with Sally JOHNSON at 01/11/2022 8:00 PM and it was ascertained that the content and urgency of the report was understood at the time of direct communication. Assessment and Plan (1) Colitis: Status: Acute (2) Hypotension: Status: Acute (3) Bronchitis: Status: Acute (4) Severe protein-calorie malnutrition: Status: Acute (5) Leukocytosis: Status: Acute (6) Adult failure to thrive: Status: Acute (7) Abdominal mass: Status: Acute Plan Wednesday 1-year-old male with past medical history of ESRD on dialysis among other many medical issues who sent to the hospital from [facility] for hypotension, reported hypoxia. Patient is frontal bronchitis, acute colitis, as well as abdominal mass # colitis - is evidence for colitis on CT abdomen, some leukocytosis, diarrhea - C diff pen - will treat with IV antibiotic - follow cultures - IV fluids # hypotension - Appears to be chronic - patient has pounding pulses, nontoxic-appearing - no lactic acidosis - will continue IV fluids maintenance # bronchitis - no hypoxic - supportive care - patient will be on IV antibiotics for colitis # leukocytosis - likely secondary to above - will treat colitis as above - follow CBC # abdominal mass - likely the explanation for his weight loss - will consult Hematology-Oncology # supratherapeutic INR - hold were for - follow PT INR daily DVT prophylaxis: Coumadin Code status: Patient was to be full code. He is alert oriented but when asked about complex questions he is unable to respond appropriately therefore unclear about competency. Will continue full care per his wishes Patient will require midodrine 2 night hospital stay for management of colitis, as well as evaluation of abdominal mass Quality Stroke Does the patient have a stroke diagnosis?: No VTE Prior VTE?: No VTE Risk Level:: Medical - moderate - high VTE Device Contraindication: Treatment Not Indicated VTE Drug Contraindication: N/A - Med Ordered
[2022-01-11] MEDS: Lactated Ringers 1,000 ML 100 ML IVCONT (22:08)
[2022-01-11] MEDS: Heparin Sodium,Porcine 5,000 UNIT/ML VIAL 5000 UNIT SUBCUT (22:10)
--- NOTE | 2022-01-11 22:15 | PC.NURSE ---
hospitalists aware of pt LOW BPs.
[2022-01-12] VITALS (8 sets, daily range): BP systolic 65–102; BP diastolic 34–53; PULSE 60–75; RESP 13–18; TEMP 36.4–37.2; O2SAT 92–100; BMI 21.3
[2022-01-12 04:37] LABS: Basophils Percent Auto 0.2 % (0-2); Eosinophils Percent Auto 0.1 % (0-4); Hematocrit 32.9 % (42.0-52.0); Hemoglobin 10.1 g/dl (14.0-18.0); Imm Gran Abs Auto 0.14 X10*3/uL (0.00-0.03); Imm Gran Pct Auto 0.8 % (0.0-0.4); Lymphocytes Absolute Auto 0.7 X10*3/uL (1.2-4.9); Lymphocytes Percent Auto 4.3 % (20-40); MANUAL DIFF FLAG SCAN; Mean Corpuscular HGB Conc 30.7 g/dl (31.0-36.0); Mean Corpuscular Hemoglobin 30.2 pg (27.0-33.0); Mean Corpuscular Volume 98.5 fL (80.0-98.0); Mean Platelet Volume 10.1 fL (9.4-12.4); Monocytes Absolute Auto 0.3 X10*3/uL (0.1-1.2); Monocytes Percent Auto 1.6 % (2-11); Neutrophils Absolute Auto 15.8 x10*3/uL (2.0-8.3); Platelet Count 236 X10*3/uL (160-400); Red Blood Count 3.34 X10*6/uL (4.60-5.80); Red Cell Distribution Width 16.6 % (11.0-16.0); SCAN SMEAR FLAG 1
[2022-01-12 04:39] LABS: SLIDE REVIEW VERIFIED
[2022-01-12 07:38] LABS: Glucose, Whole Blood 65 mg/dL (60-115)
[2022-01-12 08:12] LABS: INTERNATIONAL NORM RATIO 4.9 (0.9-1.1); Prothrombin Time 59.9 SEC (10.0-13.1)
[2022-01-12 09:16] LABS: Glucose, Whole Blood 67 mg/dL (60-115)
[2022-01-12] MEDS: metroNIDAZOLE 500 MG TABLET G-TUBE ×2 (09:21→18:40)
[2022-01-12] MEDS: Docusate Sodium 100 MG CAPSULE PO (09:21)
[2022-01-12] MEDS: QUEtiapine Fumarate 25 MG TABLET NG-TUBE ×2 (09:21→22:49)
[2022-01-12] MEDS: Midodrine HCl 10 MG TABLET G-TUBE ×3 (09:21→18:43)
--- NOTE | 2022-01-12 09:21 | PC.NURSE ---
Addendum entered by Em Middleton 01/12/22 11:05: via Gtube; LR and ceftriaxone via EJ tube Original Note: administered meds per MAR
[2022-01-12] MEDS: lamoTRIgine 100 MG TABLET 200 MG G-TUBE (09:22)
[2022-01-12] MEDS: Cyanocobalamin (Vitamin B-12) 1,000 MCG TABLET 1000 MCG G-TUBE (09:22)
[2022-01-12] MEDS: cefTRIAXone sodium 1 GM in 0.9 % Sodium Chloride 50 ML IV (09:22)
[2022-01-12] MEDS: Famotidine 20 MG TABLET G-TUBE (09:22)
[2022-01-12] MEDS: Heparin Sodium,Porcine 5,000 UNIT/ML VIAL 5000 UNIT SUBCUT ×2 (09:23→22:49)
--- NOTE | 2022-01-12 12:50 | PC.NURSE ---
Pt's ostomy bag in L side of chest was leaking. Dressings changed (below stoma wound was changed and central line dressing changed as well), ostomy bag changed. Patient was cleaned up and linens were changed. Stoma is pink and moist.
[2022-01-12] MEDS: Lactated Ringers 1,000 ML 100 ML IVCONT ×2 (13:10→19:19)
--- NOTE | 2022-01-12 13:22 | PC.NURSE ---
HoTn Noted on assessment to JOHN. Contact made to [facility], regarding MAP goal s/p HoTN upon arrival. Plan is to set orders for MAP goal 55 and dialysis
--- NOTE | 2022-01-12 13:26 | HO.PM.IMPN ---
Subjective Subjective Date of Service: 01/12/22 Interval History: Seen and evaluated this morning denies any pain, fever or chills Reporting feeling weak with low appetite Hypotensive chronically No reported overnight events Review of Systems Review of Systems: Yes all other systems are reviewed and are negative Physical Exam Vital Signs: Vital Signs: Last Vital Signs Temp 97.9 F 01/12/22 12:17 Pulse 60 01/12/22 12:17 Resp 14 01/12/22 12:17 BP 80/50 L 01/12/22 12:17 Pulse Ox 100 01/12/22 12:17 O2 Del Method 01/12/22 12:17 O2 Flow Rate 3 01/11/22 15:32 BMI result Body Mass Index 21.3 Const: Other: Constitutional : Alert, interactive, frail and underweight Neck : Normal inspection, Supple Cardiovascular : RRR, no JVP, no lower extremity edema Respiratory : fair bilateral air entry, no crackles, wheezes or rhonchi Gastrointestinal: soft, lax, decreased bowel sounds, Non tender, ostomy in place in chest wall with liquid drainage from it leaking around Skin : Warm, Dry Neurological : Alert & oriented x3, No focal deficit , CN 2-12 within normal Objective Data Active Medications Acetaminophen (Acetaminophen 325 Mg Tablet) 650 mg PO Q6H PRN PRN Reason: Pain, Mild (Pain Scale 1-3) Cyanocobalamin (Cyanocobalamin (Vitamin B-12) 1,000 Mcg Tablet) 1,000 mcg G-TUBE DAILY [facility] Last Admin: 01/12/22 09:22 Dose: 1,000 mcg Documented By: SALUD Docusate Sodium (Docusate Sodium 100 Mg Capsule) 100 mg PO BID [facility] Last Admin: 01/12/22 09:21 Dose: 100 mg Documented By: SALUD Famotidine (Famotidine 20 Mg Tablet) 20 mg G-TUBE DAILY [facility] Last Admin: 01/12/22 09:22 Dose: 20 mg Documented By: SALUD Fludrocortisone Acetate (Fludrocortisone Acetate 0.1 Mg Tablet) 0.2 mg G-TUBE BID [facility] Last Admin: 01/12/22 13:10 Dose: Not Given Documented By: SHELLY Non-Admin Reason: Previous unit Heparin Sodium (Porcine) (Heparin Sodium,Porcine 5,000 Unit/Ml Vial) 5,000 unit SUBCUT Q12H [facility] Last Admin: 01/12/22 09:23 Dose: 5,000 unit Documented By: SALUD Lactated Ringer's (Lr) 1,000 mls @ 100 mls/hr IVCONT .Q10H [facility] Last Admin: 01/12/22 13:10 Dose: 100 mls/hr Documented By: SHELLY Ceftriaxone Sodium 1 gm/ (Sodium Chloride) 50 mls @ 100 mls/hr IV Q24H [facility] Last Infusion: 01/12/22 13:10 Dose: 0 mls/hr Documented By: SHELLY Lamotrigine (Lamotrigine 100 Mg Tablet) 200 mg G-TUBE DAILY [facility] Last Admin: 01/12/22 09:22 Dose: 200 mg Documented By: SALUD Melatonin (Melatonin 3 Mg Tablet) 6 mg G-TUBE BEDTIME [facility]ACEY Metronidazole (Metronidazole 500 Mg Tablet) 500 mg G-TUBE Q8H [facility] Last Admin: 01/12/22 09:21 Dose: 500 mg Documented By: SALUD Midodrine (Midodrine Hcl 10 Mg Tablet) 10 mg G-TUBE TID@0800,1300,1700 [facility] Last Admin: 01/12/22 09:21 Dose: 10 mg Documented By: SALUD Olanzapine (Olanzapine 5 Mg Tablet) 5 mg G-TUBE Q4H PRN PRN Reason: Agitation Olanzapine (Olanzapine 7.5 Mg Tablet) 15 mg G-TUBE BEDTIME [facility] Ondansetron HCl (Ondansetron Hcl 4 Mg/2 Ml Vial) 4 mg IVPUSH Q8H PRN PRN Reason: Nausea and Vomiting Pharmacy Consult (Consult Rx Perform Med Rec) 1 each MISCELLANE ONCE PRN PRN Reason: Consult order Quetiapine Fumarate (Quetiapine Fumarate 25 Mg Tablet) 25 mg NG-TUBE BID [facility] Last Admin: 01/12/22 09:21 Dose: 25 mg Documented By: SALUD Sodium Chloride (0.9 % Sodium Chloride Flush 3 Ml Syringe) 3 ml IVFLUSH QSHIFT [facility] Last Admin: 01/12/22 13:08 Dose: Not Given Documented By: SHELLY Non-Admin Reason: previous unit Labs CBC & Chem 7: 01/12/22 04:30 01/11/22 16:16 Labs: Laboratory Results - last 24 hr 01/11/22 01/11/22 01/11/22 14:19 15:52 16:16 MCV 97.7 MCH 30.6 MCHC 31.3 RDW 16.5 H Plt Count 248 MPV 10.1 Immature Gran % (Auto) 0.7 H Neut % (Auto) 85.2 H Lymph % (Auto) 8.8 L [place] % (Auto) 4.4 Eos % (Auto) 0.4 Baso % (Auto) 0.5 Lymph # (Auto) 1.7 [place] # (Auto) 0.8 Eos # (Auto) 0.1 Baso # (Auto) 0.1 Abs Immat Gran (auto) 0.14 H Absolute Neuts (auto) 16.2 H Absolute Nucleated RBC 0.000 Nucleated RBC % (auto) 0.0 Smear Tech's Comments PT INR APTT Anion Gap Estim Creat Clear Calc Estimated GFR POC Glucose 99 Random Glucose Lactic Acid Calcium Magnesium Total Bilirubin Direct Bilirubin AST ALT Alkaline Phosphatase Total Protein Albumin TSH Random Cortisol COVID-19 (ELISABETH) Negative COVID-19 Clin Com See Note 01/11/22 01/11/22 01/11/22 16:16 16:16 16:16 MCV MCH MCHC RDW Plt Count MPV Immature Gran % (Auto) Neut % (Auto) Lymph % (Auto) [place] % (Auto) Eos % (Auto) Baso % (Auto) Lymph # (Auto) [place] # (Auto) Eos # (Auto) Baso # (Auto) Abs Immat Gran (auto) Absolute Neuts (auto) Absolute Nucleated RBC Nucleated RBC % (auto) Smear Tech's Comments PT 47.7 H INR 3.9 H APTT 47.8 H Anion Gap 23 H Estim Creat Clear Calc 7.4 Estimated GFR 8 POC Glucose Random Glucose 97 Lactic Acid 1.5 Calcium 8.7 Magnesium 2.1 Total Bilirubin 0.5 Direct Bilirubin 0.3 AST 25 ALT 26 Alkaline Phosphatase 124 H Total Protein 6.5 Albumin 3.9 TSH 1.00 Random Cortisol COVID-19 (ELISABETH) COVID-19 Clin Com 01/11/22 01/12/22 01/12/22 Unknown 04:30 07:21 MCV 98.5 H MCH 30.2 MCHC 30.7 L RDW 16.6 H Plt Count 236 MPV 10.1 Immature Gran % (Auto) 0.8 H Neut % (Auto) 93.0 H Lymph % (Auto) 4.3 L [place] % (Auto) 1.6 L Eos % (Auto) 0.1 Baso % (Auto) 0.2 Lymph # (Auto) 0.7 L [place] # (Auto) 0.3 Eos # (Auto) 0.0 Baso # (Auto) 0.0 Abs Immat Gran (auto) 0.14 H Absolute Neuts (auto) 15.8 H Absolute Nucleated RBC 0.000 Nucleated RBC % (auto) 0.0 Smear Tech's Comments VERIFIED PT INR APTT Anion Gap Estim Creat Clear Calc Estimated GFR POC Glucose 65 Random Glucose Lactic Acid Calcium Magnesium Total Bilirubin Direct Bilirubin AST ALT Alkaline Phosphatase Total Protein Albumin TSH Random Cortisol 14.7 COVID-19 (ELISABETH) COVID-19 Clin Com 01/12/22 01/12/22 08:01 09:12 MCV MCH MCHC RDW Plt Count MPV Immature Gran % (Auto) Neut % (Auto) Lymph % (Auto) [place] % (Auto) Eos % (Auto) Baso % (Auto) Lymph # (Auto) [place] # (Auto) Eos # (Auto) Baso # (Auto) Abs Immat Gran (auto) Absolute Neuts (auto) Absolute Nucleated RBC Nucleated RBC % (auto) Smear Tech's Comments PT 59.9 H INR 4.9 H APTT Anion Gap Estim Creat Clear Calc Estimated GFR POC Glucose 67 Random Glucose Lactic Acid Calcium Magnesium Total Bilirubin Direct Bilirubin AST ALT Alkaline Phosphatase Total Protein Albumin TSH Random Cortisol COVID-19 (ELISABETH) COVID-19 Clin Com Assessment and Plan (1) Hypotension: Status: Acute (2) Abdominal mass: Status: Acute (3) Colitis: Status: Acute Plan Wednesday 1-year-old male with past medical history of ESRD on dialysis among other many medical issues who sent to the hospital from [facility] for hypotension, reported hypoxia. Patient is frontal bronchitis, acute colitis, as well as abdominal mass # colitis Denies any pain abdomen evidence for colitis on CT abdomen, some leukocytosis, diarrhea ill treat with IV antibiotic follow cultures IV fluids # hypotension chronic patient has pounding pulses, nontoxic-appearing no lactic acidosis continue IV fluids maintenance Increase midodrine to 10 mg t.i.d. # ESRD on dialysis Hypokalemia, to be corrected by dialysis Nephrology team to follow # bronchitis No evidence of acute exacerbation, supportive care # leukocytosis secondary to colitis, on antibiotics follow CBC # abdominal mass likely the explanation for his weight loss Pending Hematology-Oncology evaluation # supratherapeutic INR Hold warfarin follow PT INR daily DVT prophylaxis: Coumadin Code status: Patient was to be full code Patient will require overnight hospital stay for management of colitis, as well as evaluation of abdominal mass to prevent possible decompensation and to severe sepsis. Quality Stroke Does the patient have a stroke diagnosis?: No VTE Prior VTE?: No VTE Risk Level:: Medical - moderate - high VTE Device Contraindication: Treatment Not Indicated VTE Drug Contraindication: N/A - Med Ordered
--- NOTE | 2022-01-12 14:05 | CONS_ITS ---
DATE OF SERVICE: 01/12/2022 REASON FOR CONSULTATION: I was called to see this patient to assist in the management of patient's dialysis requirements. HISTORY OF PRESENT ILLNESS: To summarize, Jarocho is a 71-year-old man with a history of ESRD on dialysis on Wednesday, Wednesday, Wednesday. He goes to [facility]. He has history of chronic hypotension, diabetes mellitus, HELLP syndrome, history of esophagectomy, and status post G-tube placement with cachexia. He comes in because of hypotension. He has been to the hospital multiple times. This consult was requested because he is due for dialysis today. ONGOING MEDICAL PROBLEMS: Include history of ESRD, on dialysis 3 times a week, chronic hypotension, COPD, history of COVID-19 in the past, diabetes mellitus, history of gastrectomy, transient ischemic attack, history of schizophrenic disorder, protein-calorie malnutrition. PAST SURGICAL HISTORY: Includes esophagectomy. SOCIAL HISTORY: History of smoking in the past. He does not smoke at present. ALLERGIES: HE IS ALLERGIC TO NICK INHIBITORS, ASPIRIN ACID. CURRENT MEDICATIONS: Include vitamin B12, Colace, fludrocortisone, lamotrigine, melatonin, midodrine 10 mg via G-tube, olanzapine, quetiapine, Coumadin. REVIEW OF SYSTEMS: Positive for weakness. He has no headache, nausea, vomiting. He denies abdominal pain. No urinary symptoms. PHYSICAL EXAMINATION: VITAL SIGNS: Patient is an elderly man. He appears cachectic, ill-appearing. Not in distress. NECK: Supple. He has a triple-lumen line on the right side of the chest. ABDOMEN: Soft. NEUROLOGIC: No asterixis. EXTREMITIES: No dependent edema. VITAL SIGNS: Blood pressure was low at 86/53. LABORATORY DATA: Potassium 3.0, CO2 of 18, BUN 40, creatinine 6.81, hemoglobin 10.1, WBC 17.0, platelets 236. IMPRESSION: A 71-year-old man with end-stage renal disease, presenting with chronic hypotension. From a renal standpoint, he has been well dialyzes. No overt signs or symptoms of uremia. He is due for dialysis today. Therefore, we will cautiously initiate dialysis. He has chronic hypotension. I will start him back on midodrine. We will not remove fluid during dialysis and if needed, we will administer albumin as well. The serum potassium was 2.0. Therefore, we will use K3 bath during dialysis. He has mild metabolic acidosis and should correct with dialysis. We will follow him closely along with the team. Bob Kaba MD BPA/MODL / [id number]
--- NOTE | 2022-01-12 16:41 | PC.NURSE ---
assumed care of pt, pt currently @ dialysis.
--- NOTE | 2022-01-12 18:52 | PC.NURSE ---
pt a&ox3, vss - pt remains hypotensive w MAP >55, medicated per provider order. confirmed ok to give midodrine as past 1800, pt returned from dialysis @ 1830, ok per pharmacy given pts current bp.
--- NOTE | 2022-01-12 19:47 | PC.NURSE ---
tube feed started by previous shift RN
[2022-01-12] MEDS: OLANZapine 7.5 MG TABLET 15 MG G-TUBE (22:48)
[2022-01-12] MEDS: Melatonin 3 MG TABLET 6 MG G-TUBE (22:48)
[2022-01-12] MEDS: Fludrocortisone Acetate 0.1 MG TABLET 0.2 MG G-TUBE (22:49)
--- NOTE | 2022-01-12 23:02 | PC.NURSE ---
+ tube placement via auscultation. Flushes without difficulty. Gtube site clean, dry, no drainage. Patient given 2 warm blankets per request.
[2022-01-12] MEDS: 0.9 % Sodium Chloride 500 ML 250 ML IV (23:58)
[2022-01-13] VITALS (8 sets, daily range): BP systolic 68–94; BP diastolic 43–59; PULSE 58–96; RESP 12–20; TEMP 36.1–37.1; O2SAT 95–100
--- NOTE | 2022-01-13 00:13 | PC.NURSE ---
+ pedal pulse in left foot. Right foot able to briefly find pulse with doppler, unable to palpated pedal pulse. Patient mentating at baseline.
[2022-01-13] MEDS: 0.9 % Sodium Chloride 500 ML IV (00:51)
--- NOTE | 2022-01-13 01:40 | PC.NURSE ---
Per Dr Robles give 0800 Midodrine at 0400
--- NOTE | 2022-01-13 01:42 | PM.EVENT ---
Event Note Date of Service: 01/13/22 Event Note: Hypotension: Patient blood pressure went down as low as 65/41. Patient has chronic hypotension, per day team patient goal map is above 55. Patient had dialysis today Discussed with ICU attending Dr. Brown: suggested fluid challenge Patient was given normal saline IV fluids total of 750 cc.--> blood pressure improved to a map of 59-62. Patient remained asymptomatic, warm peripheries, mentating well. Will continue to monitor
[2022-01-13] MEDS: metroNIDAZOLE 500 MG TABLET G-TUBE ×3 (04:22→16:19)
[2022-01-13] MEDS: Midodrine HCl 10 MG TABLET G-TUBE ×3 (04:23→17:22)
[2022-01-13 05:12] LABS: INTERNATIONAL NORM RATIO 4.1 (0.9-1.1); Prothrombin Time 49.7 SEC (10.0-13.1)
[2022-01-13] MEDS: Lactated Ringers 1,000 ML 100 ML IVCONT ×2 (05:17→16:18)
[2022-01-13 06:01] LABS: CDiff Gene PCR POSITIVE (Negative)
[2022-01-13 06:41] LABS: CDIFF Internal ctrl Dots and bkg OK (V); CDiff Toxin Negative (Negative)
[2022-01-13 07:22] LABS: Glucose, Whole Blood 75 mg/dL (60-115)
[2022-01-13] MEDS: 0.9 % Sodium Chloride Flush 3 ML SYRINGE IVFLUSH ×2 (08:00→16:19)
[2022-01-13] MEDS: cefTRIAXone sodium 1 GM in 0.9 % Sodium Chloride 50 ML IV (08:00)
--- NOTE | 2022-01-13 09:29 | PM.PNNEP ---
Subjective Subjective Date of Service: 01/15/22 Interval history: Events noted Had HD yesterday Hypotensive chronically Physical Exam Vital Signs: Vital Signs: Last Vital Signs Temp 97 F 01/13/22 08:47 Pulse 68 01/13/22 08:47 Resp 12 01/13/22 08:47 BP 89/59 L 01/13/22 08:47 Pulse Ox 100 01/13/22 08:47 O2 Del Method 01/13/22 08:47 O2 Flow Rate 3 01/11/22 15:32 BMI result Body Mass Index 21.3 Const: Orientation/consciousness: oriented to person Resp: Auscultation: diminished lung sounds Cardio: Palpation: no palpable S4 Heart sounds: no gallops and no murmurs Neuro: General: oriented to person Motor exam (neuro): no asterixis Objective Data Labs CBC & Chem 7: 01/14/22 05:35 01/14/22 05:35 Labs: Laboratory Results - last 24 hr 01/13/22 01/13/22 01/13/22 04:53 05:03 07:18 PT 49.7 H INR 4.1 H POC Glucose 75 C. difficile Tox B Gene POSITIVE A* C. difficile Toxin A&B Negative C. difficile Interpret SEE NOTE Microbiology Microbiology Results: Microbiology 01/11/22 16:16 Blood - Venous Blood Culture - Preliminary No growth after 24 hours. 01/11/22 15:04 Blood - Venous Blood Culture - Preliminary No growth after 24 hours. Procedures Date of Service Date of Service: 01/13/22 Assessment & Plan Assessment and plan (1) ESRD on dialysis: Status: Acute Plan ESRD HD on MWF No s/s of uremia Anemia Epogen as needed C.diff Management per medical team Chronic hypotension Midodrine 10 mg TID Time Spent With Patient Time: Total time spent is greater than 50% in coordination of care (as documented) at patient's floor/unit and/or counseling patient: Progress Note: Quality Stroke Does the patient have a stroke diagnosis?: No
--- NOTE | 2022-01-13 09:33 | MHC.CM.PN ---
CM phoned Brother/HCP/Bernabe @ [phone] and left a detailed message, addressing the IMM(Original to be mailed certified letter to Bernabe and a copy to be placed on the chart). Patient is a LTC Resident @ [facility] and the plan is for him to return there, once medically stable. LÓPEZ has initiated and will follow for dc planning.
[2022-01-13] MEDS: Fludrocortisone Acetate 0.1 MG TABLET 0.2 MG G-TUBE ×2 (09:34→22:29)
[2022-01-13] MEDS: lamoTRIgine 100 MG TABLET 200 MG G-TUBE (09:35)
[2022-01-13] MEDS: QUEtiapine Fumarate 25 MG TABLET NG-TUBE ×2 (09:35→22:29)
[2022-01-13] MEDS: Cyanocobalamin (Vitamin B-12) 1,000 MCG TABLET 1000 MCG G-TUBE (09:35)
[2022-01-13] MEDS: Famotidine 20 MG TABLET G-TUBE (09:36)
[2022-01-13 09:47] LABS: Hematocrit 33.4 % (42.0-52.0); Hemoglobin 10.2 g/dl (14.0-18.0); Mean Corpuscular HGB Conc 30.5 g/dl (31.0-36.0); Mean Corpuscular Volume 98.2 fL (80.0-98.0); Mean Platelet Volume 9.9 fL (9.4-12.4); Platelet Count 221 X10*3/uL (160-400); Red Cell Distribution Width 16.9 % (11.0-16.0)
[2022-01-13 10:05] LABS: Anion Gap 17 (12-20); Blood Urea Nitrogen 24 mg/dL (9-16); Carbon Dioxide 20 mmol/L (22-29); Chloride 109 mmol/L (96-108); Creatinine Clr Calc Pharmacy 12.8; Estimated Glomerular Filt Rate 13; Glucose Random 80 mg/dL (60-115); Potassium 3.1 mmol/L (3.3-5.1); Sodium 143 mmol/L (135-145)
[2022-01-13] MEDS: Heparin Sodium,Porcine 5,000 UNIT/ML VIAL 5000 UNIT SUBCUT ×2 (10:25→22:29)
--- NOTE | 2022-01-13 10:38 | P.PNIM_ITS ---
Subjective Subjective Date of Service: 01/13/22 Interval History: Seen and evaluated this morning denies any pain, fever or chills Having bowel movement Hypotensive chronically No reported overnight events Review of Systems No fever, chills but has generalized weakness No chest pain, palpitation No shortness of breath or coughing No abdominal pain, nausea or vomiting No urinary symptoms No any rash or wounds Physical Exam Vital Signs: Vital Signs: Last Vital Signs Temp 97 F 01/13/22 08:47 Pulse 68 01/13/22 08:47 Resp 12 01/13/22 08:47 BP 89/59 L 01/13/22 08:47 Pulse Ox 100 01/13/22 08:47 O2 Del Method 01/13/22 08:47 O2 Flow Rate 3 01/11/22 15:32 BMI result Body Mass Index 21.3 Const: Other: Constitutional : Alert, interactive, frail and underweight Neck : Normal inspection, Supple Cardiovascular : RRR, no JVP, no lower extremity edema Respiratory : fair bilateral air entry, no crackles, wheezes or rhonchi Gastrointestinal: soft, lax, decreased bowel sounds, Non tender, ostomy in place in chest wall with liquid drainage from it , J-tube clean with no surrounding erythema Skin : Warm, Dry Neurological : Alert & oriented x3, No focal deficit , CN 2-12 within normal Objective Data Active Medications Acetaminophen (Acetaminophen 325 Mg Tablet) 650 mg PO Q6H PRN PRN Reason: Pain, Mild (Pain Scale 1-3) Cyanocobalamin (Cyanocobalamin (Vitamin B-12) 1,000 Mcg Tablet) 1,000 mcg G- TUBE DAILY [facility] Last Admin: 01/13/22 09:35 Dose: 1,000 mcg Documented By: GREG Docusate Sodium (Docusate Sodium 100 Mg Capsule) 100 mg PO BID [facility] Last Admin: 01/13/22 09:37 Dose: Not Given Documented By: GREG Non-Admin Reason: not G Tube appropriate Famotidine (Famotidine 20 Mg Tablet) 20 mg G-TUBE DAILY [facility] Last Admin: 01/13/22 09:36 Dose: 20 mg Documented By: GREG Fludrocortisone Acetate (Fludrocortisone Acetate 0.1 Mg Tablet) 0.2 mg G-TUBE BID [facility] Last Admin: 01/13/22 09:34 Dose: 0.2 mg Documented By: GREG Heparin Sodium (Porcine) (Heparin Sodium,Porcine 5,000 Unit/Ml Vial) 5,000 unit SUBCUT Q12H [facility] Last Admin: 01/13/22 10:25 Dose: 5,000 unit Documented By: GREG Comments: label ripped Lactated Ringer's (Lr) 1,000 mls @ 100 mls/hr IVCONT .Q10H [facility] Last Admin: 01/13/22 05:17 Dose: 100 mls/hr Documented By: MYNOR Ceftriaxone Sodium 1 gm/ (Sodium Chloride) 50 mls @ 100 mls/hr IV Q24H [facility] Last Infusion: 01/13/22 09:37 Dose: 0 mls/hr Documented By: GREG Lamotrigine (Lamotrigine 100 Mg Tablet) 200 mg G-TUBE DAILY [facility] Last Admin: 01/13/22 09:35 Dose: 200 mg Documented By: GREG Melatonin (Melatonin 3 Mg Tablet) 6 mg G-TUBE BEDTIME [facility] Last Admin: 01/12/22 22:48 Dose: 6 mg Documented By: MARKO Metronidazole (Metronidazole 500 Mg Tablet) 500 mg G-TUBE Q8H [facility] Last Admin: 01/13/22 09:35 Dose: 500 mg Documented By: GREG Midodrine (Midodrine Hcl 10 Mg Tablet) 10 mg G-TUBE TID@0400,1300,1700 [facility] Last Admin: 01/13/22 04:23 Dose: 10 mg Documented By: MYNOR Olanzapine (Olanzapine 5 Mg Tablet) 5 mg G-TUBE Q4H PRN PRN Reason: Agitation Olanzapine (Olanzapine 7.5 Mg Tablet) 15 mg G-TUBE BEDTIME [facility] Last Admin: 01/12/22 22:48 Dose: 15 mg Documented By: MARKO Ondansetron HCl (Ondansetron Hcl 4 Mg/2 Ml Vial) 4 mg IVPUSH Q8H PRN PRN Reason: Nausea and Vomiting Pharmacy Consult (Consult Rx Perform Med Rec) 1 each MISCELLANE ONCE PRN PRN Reason: Consult order Quetiapine Fumarate (Quetiapine Fumarate 25 Mg Tablet) 25 mg NG-TUBE BID [facility] Last Admin: 01/13/22 09:35 Dose: 25 mg Documented By: GREG Sodium Chloride (0.9 % Sodium Chloride Flush 3 Ml Syringe) 3 ml IVFLUSH QSHIFT [facility] Last Admin: 01/13/22 08:00 Dose: 3 ml Documented By: GREG Vancomycin HCl (Vancomycin Hcl Oral Solution 125 Mg/5 Ml Soln.Recon) 125 mg G- TUBE Q6H [facility] Labs CBC & Chem 7: 01/13/22 09:36 01/13/22 09:36 Labs: Laboratory Results - last 24 hr 01/13/22 01/13/22 01/13/22 04:53 05:03 07:18 MCV MCH MCHC RDW Plt Count MPV Absolute Nucleated RBC Nucleated RBC % (auto) PT 49.7 H INR 4.1 H Anion Gap Estim Creat Clear Calc Estimated GFR POC Glucose 75 Random Glucose Calcium C. difficile Tox B Gene POSITIVE A* C. difficile Toxin A&B Negative C. difficile Interpret SEE NOTE 01/13/22 01/13/22 09:36 09:36 MCV 98.2 H MCH 30.0 MCHC 30.5 L RDW 16.9 H Plt Count 221 MPV 9.9 Absolute Nucleated RBC 0.000 Nucleated RBC % (auto) 0.0 PT INR Anion Gap 17 Estim Creat Clear Calc 12.8 Estimated GFR 13 POC Glucose Random Glucose 80 Calcium 8.0 L D C. difficile Tox B Gene C. difficile Toxin A&B C. difficile Interpret Microbiology Microbiology Results: Microbiology 01/11/22 16:16 Blood Culture - Preliminary Blood - Venous No growth after 24 hours. 01/11/22 15:04 Blood Culture - Preliminary Blood - Venous No growth after 24 hours. Assessment and Plan (1) ESRD on dialysis: Status: Acute (2) Hypotension: Status: Acute (3) Abdominal mass: Status: Acute (4) Colitis: Status: Acute Plan Wednesday 1-year-old male with past medical history of ESRD on dialysis among other many medical issues who sent to the hospital from [facility] for hypotension, reported hypoxia. Patient is frontal bronchitis, acute colitis, as well as abdominal mass # colitis Denies any pain abdomen evidence for colitis on CT abdomen, leukocytosis improving Positive C diff antigen but negative for toxin Continue IV ceftriaxone and Flagyl Start vancomycin q.i.d. for prevention of C diff colitis follow cultures Continue IV fluids # abdominal mass Noted on CT scan adjacent to the colitis area Pending GI and Hematology-Oncology evaluation # hypotension chronic nontoxic-appearing no lactic acidosis continue IV fluids maintenance Continue midodrine to 10 mg t.i.d. # ESRD on dialysis Hypokalemia, to be corrected by dialysis Nephrology team to follow # bronchitis No evidence of acute exacerbation, supportive care # leukocytosis secondary to colitis, on antibiotics follow CBC # supratherapeutic INR INR 4.1 Hold warfarin follow PT INR daily DVT prophylaxis: Coumadin Code status: full code Patient will require overnight hospital stay for management of colitis, as well as evaluation of abdominal mass to prevent possible decompensation and to severe sepsis. Quality Stroke Does the patient have a stroke diagnosis?: No VTE Prior VTE?: No VTE Risk Level:: Medical - moderate - high VTE Device Contraindication: Treatment Not Indicated VTE Drug Contraindication: N/A - Med Ordered
--- NOTE | 2022-01-13 11:26 | P.CNGI_ITS ---
History of Present Illness Data of Consult Service Date: 01/13/22 Requesting physician: Isac Rodriguez Primary Care Provider: Unknown Physician HPI Reason for consult: colonic mass 71-year-old male with past medical history of ESRD on dialysis,, chronic hypotension, diabetes, HELLP syndrome, status post esophagectomy, gastrectomy status post a G-tube, chronic cachexia with severe protein calorie malnutrition, AFib on Coumadin, COPD, TIA, HLD, schizophrenia, COVID-19 infection in May 2019 who I am seeing for assessment for abn imaging with concern for colonic mass. He was initially admitted few days ago with lethargy and weakness with low O2 sats. He also had diarrheal symptoms with subsequent pos c diff test. Since being on treatment no further diarrhea. He denies having any shortness of breath, no chest pain, no abdominal pain nausea or vomiting but does admit to weight loss He had CT scan with diffuse bronchial thickening that can be seen with mild bronchitis, circumferential short segment wall thickening of the ascending colon and sigmoid. LABS: WBC count of 19.1 which was 15 on 01/10, hematocrit of 38, there is neutrophil the shift INR 3.9, creatinine of 6.81 Review of Systems Review of Systems: Constitutional : + Weight loss, No Fever, No Chills ENT/Mouth : No sore throat, No Rhinorrhea Eyes: No Swelling, No Redness Cardiovascular : No Chest Pain, No SOB, No Edema Respiratory : No Cough, No Sputum, No Wheezing Gastrointestinal : see HPI Genitourinary : NO Dysuria, No Urinary Frequency, No Hematuria, No Urgency Musculoskeletal : No joint pain, No Myalgias, No Joint Swelling Skin : No Skin Lesions, No rash Neuro : +Weakness, No Numbness, No Dizziness, No Headache Psych : No Anxiety/Panic, No Depression Heme/Lymph: No Bruising, No Lymphadenopathy Endocrine : No Polyuria, No Polydipsia All other systems reviewed and are negative. Yes all other systems are reviewed and are negative PMFSH Past Medical History Medical History Chronic hypotension COPD (chronic obstructive pulmonary disease) COVID-19 virus infection Diabetes ESRD on dialysis History of gastrectomy History of TIA (transient ischemic attack) HLD (hyperlipidemia) Jejunostomy tube present Schizophrenic disorder Severe protein-calorie malnutrition Family History Pertinent family history: Unknown Surgical History Surgical History H/O esophagectomy Social History Social History Household Members: Other Housing: Residential Do you presently have visiting nurse or other home services: Yes Unable to assess alcohol history related to: Unknown Alcohol intake: former Patient Tobacco Use Status: Former Tobacco user e-Cigarette/Vaping Use: Never Used Advance Directives Date on File: 01/04/22 service: No Current occupational status: disabled Meds Allergies Allergy/AdvReac Type Severity Reaction Status Date / Time NICK Inhibitors Allergy Unknown Unknown Verified 01/11/22 14:14 aspirin Allergy Unknown Unknown Verified 01/11/22 14:14 divalproex sodium Allergy Unknown Unknown Verified 01/11/22 14:14 valproic acid Allergy Unknown Unknown Verified 01/11/22 14:14 Active Medications: Current Medications Acetaminophen (Acetaminophen 325 Mg Tablet) 650 mg PO Q6H PRN PRN Reason: Pain, Mild (Pain Scale 1-3) Cyanocobalamin (Cyanocobalamin (Vitamin B-12) 1,000 Mcg Tablet) 1,000 mcg G- TUBE DAILY [facility] Last Admin: 01/13/22 09:35 Dose: 1,000 mcg Docusate Sodium (Docusate Sodium 100 Mg Capsule) 100 mg PO BID [facility] Last Admin: 01/13/22 09:37 Dose: Not Given Famotidine (Famotidine 20 Mg Tablet) 20 mg G-TUBE DAILY [facility] Last Admin: 01/13/22 09:36 Dose: 20 mg Fludrocortisone Acetate (Fludrocortisone Acetate 0.1 Mg Tablet) 0.2 mg G-TUBE BID [facility] Last Admin: 01/13/22 09:34 Dose: 0.2 mg Heparin Sodium (Porcine) (Heparin Sodium,Porcine 5,000 Unit/Ml Vial) 5,000 unit SUBCUT Q12H [facility] Last Admin: 01/13/22 10:25 Dose: 5,000 unit Lactated Ringer's (Lr) 1,000 mls @ 100 mls/hr IVCONT .Q10H [facility] Last Admin: 01/13/22 05:17 Dose: 100 mls/hr Ceftriaxone Sodium 1 gm/ (Sodium Chloride) 50 mls @ 100 mls/hr IV Q24H [facility] Last Infusion: 01/13/22 09:37 Dose: Infused Lamotrigine (Lamotrigine 100 Mg Tablet) 200 mg G-TUBE DAILY [facility] Last Admin: 01/13/22 09:35 Dose: 200 mg Melatonin (Melatonin 3 Mg Tablet) 6 mg G-TUBE BEDTIME [facility] Last Admin: 01/12/22 22:48 Dose: 6 mg Metronidazole (Metronidazole 500 Mg Tablet) 500 mg G-TUBE Q8H [facility] Last Admin: 01/13/22 09:35 Dose: 500 mg Midodrine (Midodrine Hcl 10 Mg Tablet) 10 mg G-TUBE TID@0400,1300,1700 [facility] Last Admin: 01/13/22 04:23 Dose: 10 mg Olanzapine (Olanzapine 5 Mg Tablet) 5 mg G-TUBE Q4H PRN PRN Reason: Agitation Olanzapine (Olanzapine 7.5 Mg Tablet) 15 mg G-TUBE BEDTIME [facility] Last Admin: 01/12/22 22:48 Dose: 15 mg Ondansetron HCl (Ondansetron Hcl 4 Mg/2 Ml Vial) 4 mg IVPUSH Q8H PRN PRN Reason: Nausea and Vomiting Pharmacy Consult (Consult Rx Perform Med Rec) 1 each MISCELLANE ONCE PRN PRN Reason: Consult order Quetiapine Fumarate (Quetiapine Fumarate 25 Mg Tablet) 25 mg NG-TUBE BID [facility] Last Admin: 01/13/22 09:35 Dose: 25 mg Sodium Chloride (0.9 % Sodium Chloride Flush 3 Ml Syringe) 3 ml IVFLUSH QSHIFT [facility] Last Admin: 01/13/22 08:00 Dose: 3 ml Vancomycin HCl (Vancomycin Hcl Oral Solution 125 Mg/5 Ml Soln.Recon) 125 mg G- TUBE Q6H [facility] Home Medications Medication Instructions Recorded Confirmed Last Taken Type cyanocobalamin (vitamin B-12) 1,000 mcg feeding tube DAILY 01/11/22 01/11/22 01/11/22 History 1,000 mcg tablet docusate sodium 100 mg capsule 100 mg PO BID 01/11/22 01/11/22 01/11/22 History (Colace) doxycycline hyclate 100 mg tablet 100 mg feeding tube BID 01/11/22 01/11/22 01/11/22 History famotidine 20 mg tablet 20 mg feeding tube DAILY 01/11/22 01/11/22 01/11/22 History fludrocortisone 0.1 mg tablet 2 tab feeding tube BID 01/11/22 01/11/22 01/11/22 History lamotrigine 25 mg chewable 200 mg feeding tube DAILY 01/11/22 01/11/22 01/11/22 History dispersible tablet melatonin 3 mg tablet 2 tab feeding tube BEDTIME 01/11/22 01/11/22 01/10/22 History midodrine 10 mg tablet 10 mg feeding tube DAILY 01/11/22 01/11/22 01/09/22 History olanzapine 15 mg tablet 15 mg feeding tube BEDTIME 01/11/22 01/11/22 01/09/22 History olanzapine 5 mg tablet 5 mg feeding tube Q4H PRN Agitation 01/11/22 01/11/22 01/11/22 History quetiapine 25 mg tablet 25 mg feeding tube BID 01/11/22 01/11/22 01/10/22 History vitamin B complex and vitamin C 1 cap feeding tube DAILY 01/11/22 01/11/22 History no.20-folic acid 1 mg capsule (Renal Caps) warfarin 6 mg tablet 6 mg feeding tube DAILY@1800 01/11/22 01/11/22 01/10/22 History Physical Exam Vital Signs: Vital Signs: Last Vital Signs Temp 97 F 01/13/22 08:47 Pulse 68 01/13/22 08:47 Resp 12 01/13/22 08:47 BP 89/59 L 01/13/22 08:47 Pulse Ox 100 01/13/22 08:47 O2 Del Method 01/13/22 08:47 O2 Flow Rate 3 01/11/22 15:32 BMI result Body Mass Index 21.3 Const: General: cooperative, no acute distress and ill appearing Orientation/consciousness: oriented to person and patient oriented x3 Eyes: General: appearance normal, both eyes and all related structures Resp: Effort & Inspection: normal respiratory effort Auscultation: diminished lung sounds Cardio: Palpation: no palpable S4 Rate: regular rate Rhythm: regular rhythm Heart sounds: no gallops and no murmurs GI: Other: J-tube in place Palpation (GI): Soft to palpation Auscultation: normal bowel sounds Skin: General skin exam: no rashes or lesions noted Neuro: General: oriented to person and patient oriented x3 Cognition (Neuro): normal cognition Motor exam (neuro): no asterixis Extrem: General: Yes normal to inspection and Yes no pedal edema Psych: Appearance: grossly normal and disheveled Results Labs CBC & Chem 7: 01/14/22 05:35 01/14/22 05:35 Labs: Short CBC 01/13/22 Range/Units 09:36 WBC 11.0 H (4.8-10.8) X10*3/uL Hgb 10.2 L (14.0-18.0) g/dl Hct 33.4 L (42.0-52.0) % Plt Count 221 (160-400) X10*3/uL BMP 01/13/22 09:36 Sodium 143 Potassium 3.1 L Chloride 109 H Carbon Dioxide 20 L BUN 24 H Creatinine 4.47 H* Calcium 8.0 L D Microbiology Microbiology Results: Microbiology 01/11/22 16:16 Blood - Venous Blood Culture - Preliminary No growth after 24 hours. 01/11/22 15:04 Blood - Venous Blood Culture - Preliminary No growth after [address] scan - abdomen: Attestation: I personally reviewed and interpreted this imaging study as follows: My impression: thickened right sided colon, atherosclerosis Assessment and Plan (1) Abdominal mass: Status: Acute (2) Colitis: Status: Acute Plan 1/ abn imaging with thickened colon with hx of weight loss, concern would be CRC PLAN: 1/ Recommend colonoscopy , can have clears tomorrow and prep in the evening, if mass is present then can discuss options surgery vs colonic stenting for palliation due to his poor health in general Procedures Date of Service Date of Service: 01/13/22
--- NOTE | 2022-01-13 11:44 | P.CNHO_ITS ---
Subjective - Subjective Chief complaint: None reported Patient: new to practice Consult date: 01/13/22 Requesting Physician: Dr. Nath Primary Care Provider: Unknown Physician HPI - Consult Narrative Reason for consult: Colonic mass Narrative: Jarocho House is a 71 year old male with history of end-stage renal disease, chronic hypertension, diabetes, HELLP syndrome, status post esophagectomy/gastrectomy, status post G-tube placement, COPD, TIA, atrial fibrillation and a resident of [facility] who has been admitted for lethargy and weakness. He appears to have worsening diarrhea, he was hypertensive with systolic blood pressure in the 60s. He had leukocytosis with a creatinine of 6.81. Imaging with CT chest/abdomen and pelvis showed thickening of the ascending colon, underlying mass could not be ruled out. Patient states that his last colonoscopy was at the age of 53. He denies any history of hematochezia or melena. He reports no abdominal pain. Review of Systems - Constitutional Reports as per HPI, Reports lack of energy, Reports weakness - Cardiovascular Denies chest pain - Respiratory Denies cough - Gastrointestinal Denies abdominal pain, Reports change in bowel habits, Reports diarrhea Oncology Screenings - ECOG Performance Status ECOG Performance Status: 3 [facility] Medical History: Medical History (Last Updated 01/13/22 @ 09:31 by Bob Kaba MD) Chronic hypotension COPD (chronic obstructive pulmonary disease) COVID-19 virus infection Diabetes ESRD on dialysis History of gastrectomy History of TIA (transient ischemic attack) HLD (hyperlipidemia) Jejunostomy tube present Schizophrenic disorder Severe protein-calorie malnutrition Surgical History: Surgical History (Last Updated 01/12/22 @ 07:17 by Sandie Rodgers MD) H/O esophagectomy Social History: Social History (Last Reviewed 01/10/22 @ 07:25 by Chayito Lo MD) Tobacco History: Patient Tobacco Use Status: Former Tobacco user Substance Use History: Use of substances other than those prescribed or required for medical reasons : No Advance Directives: Advance Directives: Yes Advance Directives on File: Yes Advance Directives Date on File: 01/04/22 Occupation Assessmet: service: No Current occupational status: disabled Home Medications and Allergies Current Medications: Current Medications Acetaminophen (Acetaminophen 325 Mg Tablet) 650 mg PO Q6H PRN PRN Reason: Pain, Mild (Pain Scale 1-3) Cyanocobalamin (Cyanocobalamin (Vitamin B-12) 1,000 Mcg Tablet) 1,000 mcg G- TUBE DAILY [facility] Last Admin: 01/13/22 09:35 Dose: 1,000 mcg Docusate Sodium (Docusate Sodium 100 Mg Capsule) 100 mg PO BID [facility] Last Admin: 01/13/22 09:37 Dose: Not Given Famotidine (Famotidine 20 Mg Tablet) 20 mg G-TUBE DAILY [facility] Last Admin: 01/13/22 09:36 Dose: 20 mg Fludrocortisone Acetate (Fludrocortisone Acetate 0.1 Mg Tablet) 0.2 mg G-TUBE BID [facility] Last Admin: 01/13/22 09:34 Dose: 0.2 mg Heparin Sodium (Porcine) (Heparin Sodium,Porcine 5,000 Unit/Ml Vial) 5,000 unit SUBCUT Q12H [facility] Last Admin: 01/13/22 10:25 Dose: 5,000 unit Lactated Ringer's (Lr) 1,000 mls @ 100 mls/hr IVCONT .Q10H [facility] Last Admin: 01/13/22 05:17 Dose: 100 mls/hr Ceftriaxone Sodium 1 gm/ (Sodium Chloride) 50 mls @ 100 mls/hr IV Q24H [facility] Last Infusion: 01/13/22 09:37 Dose: Infused Lamotrigine (Lamotrigine 100 Mg Tablet) 200 mg G-TUBE DAILY [facility] Last Admin: 01/13/22 09:35 Dose: 200 mg Melatonin (Melatonin 3 Mg Tablet) 6 mg G-TUBE BEDTIME [facility] Last Admin: 01/12/22 22:48 Dose: 6 mg Metronidazole (Metronidazole 500 Mg Tablet) 500 mg G-TUBE Q8H [facility] Last Admin: 01/13/22 09:35 Dose: 500 mg Midodrine (Midodrine Hcl 10 Mg Tablet) 10 mg G-TUBE TID@0400,1300,1700 [facility] Last Admin: 01/13/22 04:23 Dose: 10 mg Olanzapine (Olanzapine 5 Mg Tablet) 5 mg G-TUBE Q4H PRN PRN Reason: Agitation Olanzapine (Olanzapine 7.5 Mg Tablet) 15 mg G-TUBE BEDTIME [facility] Last Admin: 01/12/22 22:48 Dose: 15 mg Ondansetron HCl (Ondansetron Hcl 4 Mg/2 Ml Vial) 4 mg IVPUSH Q8H PRN PRN Reason: Nausea and Vomiting Pharmacy Consult (Consult Rx Perform Med Rec) 1 each MISCELLANE ONCE PRN PRN Reason: Consult order Quetiapine Fumarate (Quetiapine Fumarate 25 Mg Tablet) 25 mg NG-TUBE BID [facility] Last Admin: 01/13/22 09:35 Dose: 25 mg Sodium Chloride (0.9 % Sodium Chloride Flush 3 Ml Syringe) 3 ml IVFLUSH QSHIFT [facility] Last Admin: 01/13/22 08:00 Dose: 3 ml Vancomycin HCl (Vancomycin Hcl Oral Solution 125 Mg/5 Ml Soln.Recon) 125 mg G- TUBE Q6H [facility] Home Medications Medication Instructions Recorded Confirmed Type cyanocobalamin (vitamin B-12) 1,000 mcg feeding tube DAILY 01/11/22 01/11/22 History 1,000 mcg tablet docusate sodium 100 mg capsule 100 mg PO BID 01/11/22 01/11/22 History (Colace) doxycycline hyclate 100 mg tablet 100 mg feeding tube BID 01/11/22 01/11/22 History famotidine 20 mg tablet 20 mg feeding tube DAILY 01/11/22 01/11/22 History fludrocortisone 0.1 mg tablet 2 tab feeding tube BID 01/11/22 01/11/22 History lamotrigine 25 mg chewable 200 mg feeding tube DAILY 01/11/22 01/11/22 History dispersible tablet melatonin 3 mg tablet 2 tab feeding tube BEDTIME 01/11/22 01/11/22 History midodrine 10 mg tablet 10 mg feeding tube DAILY 01/11/22 01/11/22 History olanzapine 15 mg tablet 15 mg feeding tube BEDTIME 01/11/22 01/11/22 History olanzapine 5 mg tablet 5 mg feeding tube Q4H PRN Agitation 01/11/22 01/11/22 History quetiapine 25 mg tablet 25 mg feeding tube BID 01/11/22 01/11/22 History vitamin B complex and vitamin C 1 cap feeding tube DAILY 01/11/22 01/11/22 History no.20-folic acid 1 mg capsule (Renal Caps) warfarin 6 mg tablet 6 mg feeding tube DAILY@1800 01/11/22 01/11/22 History Allergies Allergy/AdvReac Type Severity Reaction Status Date / Time NICK Inhibitors Allergy Unknown Unknown Verified 01/11/22 14:14 aspirin Allergy Unknown Unknown Verified 01/11/22 14:14 divalproex sodium Allergy Unknown Unknown Verified 01/11/22 14:14 valproic acid Allergy Unknown Unknown Verified 01/11/22 14:14 Physical Exam Vital signs: Vital Signs Temp 97 F 01/13/22 08:47 Pulse 68 01/13/22 08:47 Resp 12 01/13/22 08:47 BP 89/59 L 01/13/22 08:47 Pulse Ox 100 01/13/22 08:47 O2 Del Method 01/13/22 08:47 O2 Flow Rate 3 01/11/22 15:32 Intake & Output 01/12/22 01/13/22 01/13/22 18:59 06:59 18:59 Intake Total 1050 / 3751.667 2701.667 / 3751.667 50 / 50 Balance 1050 / 3751.667 2701.667 / 3751.667 50 / 50 Intake: Intake, Tube Irrigant Amount 90 / 90 Intake, IV Amount 1050 / 3661.667 2611.667 / 3661.667 50 / 50 0.9 % Sodium Chloride 500 ml @ 1000 / 1000 500 mls/hr IV .Q1H [facility] Rx#: [id number] cefTRIAXone sodium 1 gm In 0.9 50 / 50 50 / 50 % Sodium Chloride 50 ml @ 100 mls/hr IV Q24H [facility] Rx#: [id number] Lactated Ringers 1,000 ml @ 100 1000 / 2611.667 1611.667 / 2611.667 mls/hr IVCONT .Q10H [facility] Rx#: [id number] Other: Number of Incontinent Voids 1 Number of Bowel Movements 1 Stool Incontinent Stool Amount Large Stool Consistency Loose Weight 61.8 kg Weight in Grams 52697 Weight 61.8 kg - Constitutional Present: chronically ill appearing - Routine HEENT Exam Eye: Present: EOMI - Routine Neck Exam Absent: lymphadenopathy - Routine Respiratory Exam Present: decreased breath sounds. Absent: accessory muscle use - Routine Cardiovascular Exam Cardiovascular: Present: S1 Hem/Onc Consult Result - Labs CBC & Chem 7: 01/13/22 09:36 01/13/22 09:36 Labs: Short CBC 01/13/22 Range/Units 09:36 WBC 11.0 H (4.8-10.8) X10*3/uL Hgb 10.2 L (14.0-18.0) g/dl Hct 33.4 L (42.0-52.0) % Plt Count 221 (160-400) X10*3/uL BMP 01/13/22 09:36 Sodium 143 Potassium 3.1 L Chloride 109 H Carbon Dioxide 20 L BUN 24 H Creatinine 4.47 H* Calcium 8.0 L D Assessment and Plan Patient Active problem list reviewed?: Yes (1) Abdominal mass Status: Acute Assessment and plan: 1. This is a 71-year-old male with multiple medical problems including end-stage renal disease on hemodialysis who is currently admitted for hypertension and found to have Clostridium difficile colitis. He had CT abdomen/pelvis without contrast performed twice this month, there is a well-defined annular lesion in the right mid ascending colon suspicious for colonic tumor. Abnormal ileocolic mesenteric lymph nodes also visualized on previous scan. No evidence of metastatic disease on imaging of chest and abdomen. He has not had a colonoscopy since age 53. GI consultation is pending. Further recommendations to follow after colonoscopy/biopsy. I thank you for this consultation. - Time Spent With Patient Time Spent with Patient (in minutes): 15
[2022-01-13 12:31] LABS: Glucose, Whole Blood 73 mg/dL (60-115)
[2022-01-13] MEDS: vancomycin HCL Oral Solution 125 MG/5 ML SOLN.RECON G-TUBE ×3 (15:24→22:29)
[2022-01-13] MEDS: Potassium Chloride Packet 20 MEQ PACKET 40 MEQ G-TUBE (15:24)
[2022-01-13] MEDS: Melatonin 3 MG TABLET 6 MG G-TUBE (22:29)
[2022-01-13] MEDS: OLANZapine 7.5 MG TABLET 15 MG G-TUBE (22:29)
[2022-01-14] VITALS: BP 100/72; PULSE 55; RESP 16; TEMP 36.6; O2SAT 94
[2022-01-14] MEDS: metroNIDAZOLE 500 MG TABLET G-TUBE ×3 (03:19→18:12)
[2022-01-14] MEDS: vancomycin HCL Oral Solution 125 MG/5 ML SOLN.RECON G-TUBE ×4 (03:19→20:24)
[2022-01-14] MEDS: Lactated Ringers 1,000 ML 100 ML IVCONT ×3 (03:19→20:24)
[2022-01-14 04:00] VITALS: BP 86/52; PULSE 75; RESP 16; TEMP 36.4; O2SAT 96
--- NOTE | 2022-01-14 04:28 | PC.NURSE ---
While emptying pt's ostomy bag on L side of chest the device was noticed to be leaking. Removed device from pt's chest, which resulted in the pink foam dressing below being removed. Cleaned and dried both the stoma and wound. Foam dressing reapplied to wound on chest, and new device was placed around stoma. Stoma remains pink and moist.
[2022-01-14 06:28] LABS: INTERNATIONAL NORM RATIO 2.3 (0.9-1.1); Prothrombin Time 27.2 SEC (10.0-13.1)
[2022-01-14 06:34] LABS: Anion Gap 15 (12-20); Blood Urea Nitrogen 30 mg/dL (9-16); Calcium 7.9 mg/dL (8.4-10.2); Carbon Dioxide 20 mmol/L (22-29); Chloride 108 mmol/L (96-108); Creatinine Clr Calc Pharmacy 11.1; Estimated Glomerular Filt Rate 11; Glucose Random 74 mg/dL (60-115); Potassium 3.3 mmol/L (3.3-5.1); Sodium 140 mmol/L (135-145)
[2022-01-14 06:38] LABS: Hematocrit 30.7 % (42.0-52.0); Hemoglobin 9.5 g/dl (14.0-18.0); Mean Corpuscular HGB Conc 30.9 g/dl (31.0-36.0); Mean Corpuscular Hemoglobin 30.4 pg (27.0-33.0); Mean Corpuscular Volume 98.4 fL (80.0-98.0); Mean Platelet Volume 10.3 fL (9.4-12.4); Platelet Count 190 X10*3/uL (160-400); Red Blood Count 3.12 X10*6/uL (4.60-5.80); Red Cell Distribution Width 16.9 % (11.0-16.0); White Blood Count 7.5 X10*3/uL (4.8-10.8)
[2022-01-14] MEDS: cefTRIAXone sodium 1 GM in 0.9 % Sodium Chloride 50 ML IV (06:44)
[2022-01-14] MEDS: Midodrine HCl 10 MG TABLET G-TUBE ×3 (06:44→18:11)
[2022-01-14 07:17] VITALS: BP 98/61; PULSE 70; RESP 18; TEMP 36.6; O2SAT 99
--- NOTE | 2022-01-14 10:32 | HO.PM.IMPN ---
Subjective Subjective Date of Service: 01/14/22 Interval History: Seen and evaluated this morning denies any pain, fever or chills Having bowel movement Blood pressure improved No reported overnight events Review of Systems No fever, chills but has generalized weakness No chest pain, palpitation No shortness of breath or coughing No abdominal pain, nausea or vomiting No urinary symptoms No any rash or wounds Physical Exam Vital Signs: Vital Signs: Last Vital Signs Temp 97.9 F 01/14/22 07:17 Pulse 70 01/14/22 07:17 Resp 18 01/14/22 07:17 BP 98/61 01/14/22 07:17 Pulse Ox 99 01/14/22 07:17 O2 Del Method 01/14/22 07:17 O2 Flow Rate 3 01/11/22 15:32 BMI result Body Mass Index 21.3 Const: Other: Constitutional : Alert, interactive, frail and underweight Neck : Normal inspection, Supple Cardiovascular : RRR, no JVP, no lower extremity edema Respiratory : fair bilateral air entry, no crackles, wheezes or rhonchi Gastrointestinal: soft, lax, decreased bowel sounds, Non tender, ostomy in place in chest wall with liquid drainage from it , J-tube clean with no surrounding erythema Skin : Warm, Dry Neurological : Alert & oriented x3, No focal deficit , CN 2-12 within normal Objective Data Active Medications Acetaminophen (Acetaminophen 325 Mg Tablet) 650 mg PO Q6H PRN PRN Reason: Pain, Mild (Pain Scale 1-3) Cyanocobalamin (Cyanocobalamin (Vitamin B-12) 1,000 Mcg Tablet) 1,000 mcg G-TUBE DAILY [facility] Last Admin: 01/13/22 09:35 Dose: 1,000 mcg Documented By: GREG Docusate Sodium (Docusate Sodium 100 Mg Capsule) 100 mg PO BID [facility] Last Admin: 01/13/22 22:30 Dose: Not Given Documented By: ANGELES Non-Admin Reason: G TUBE Famotidine (Famotidine 20 Mg Tablet) 20 mg G-TUBE DAILY [facility] Last Admin: 01/13/22 09:36 Dose: 20 mg Documented By: GREG Fludrocortisone Acetate (Fludrocortisone Acetate 0.1 Mg Tablet) 0.2 mg G-TUBE BID [facility] Last Admin: 01/13/22 22:29 Dose: 0.2 mg Documented By: ANGELES Heparin Sodium (Porcine) (Heparin Sodium,Porcine 5,000 Unit/Ml Vial) 5,000 unit SUBCUT Q12H [facility] Last Admin: 01/13/22 22:29 Dose: 5,000 unit Documented By: ANGELES Lactated Ringer's (Lr) 1,000 mls @ 100 mls/hr IVCONT .Q10H [facility] Last Admin: 01/14/22 03:19 Dose: 100 mls/hr Documented By: ANGELES Ceftriaxone Sodium 1 gm/ (Sodium Chloride) 50 mls @ 100 mls/hr IV Q24H [facility] Last Infusion: 01/14/22 09:59 Dose: 0 mls/hr Documented By: JOEY Lamotrigine (Lamotrigine 100 Mg Tablet) 200 mg G-TUBE DAILY [facility] Last Admin: 01/13/22 09:35 Dose: 200 mg Documented By: GREG Melatonin (Melatonin 3 Mg Tablet) 6 mg G-TUBE BEDTIME [facility] Last Admin: 01/13/22 22:29 Dose: 6 mg Documented By: ANGELES Metronidazole (Metronidazole 500 Mg Tablet) 500 mg G-TUBE Q8H [facility] Last Admin: 01/14/22 03:19 Dose: 500 mg Documented By: ANGELES Midodrine (Midodrine Hcl 10 Mg Tablet) 10 mg G-TUBE TID@0400,1300,1700 [facility] Last Admin: 01/14/22 06:44 Dose: 10 mg Documented By: ANGELES Olanzapine (Olanzapine 5 Mg Tablet) 5 mg G-TUBE Q4H PRN PRN Reason: Agitation Olanzapine (Olanzapine 7.5 Mg Tablet) 15 mg G-TUBE BEDTIME [facility] Last Admin: 01/13/22 22:29 Dose: 15 mg Documented By: ANGELES Ondansetron HCl (Ondansetron Hcl 4 Mg/2 Ml Vial) 4 mg IVPUSH Q8H PRN PRN Reason: Nausea and Vomiting Pharmacy Consult (Consult Rx Perform Med Rec) 1 each MISCELLANE ONCE PRN PRN Reason: Consult order Polyethylene Glycol/Electrolytes (Peg 3350/Na Sulf,Bicarb,Cl/Kcl 4,000 Ml Soln.Recon) 4,000 ml J-TUBE ONCE ONE Stop: 01/14/22 18:01 Quetiapine Fumarate (Quetiapine Fumarate 25 Mg Tablet) 25 mg NG-TUBE BID [facility] Last Admin: 01/13/22 22:29 Dose: 25 mg Documented By: ANGELES Sodium Chloride (0.9 % Sodium Chloride Flush 3 Ml Syringe) 3 ml IVFLUSH QSHIFT [facility] Last Admin: 01/14/22 01:22 Dose: Not Given Documented By: ANGELES Non-Admin Reason: IV Running Vancomycin HCl (Vancomycin Hcl Oral Solution 125 Mg/5 Ml Soln.Recon) 125 mg G-TUBE Q6H [facility] Last Admin: 01/14/22 03:19 Dose: 125 mg Documented By: ANGELES Labs CBC & Chem 7: 01/14/22 05:35 01/14/22 05:35 Labs: Laboratory Results - last 24 hr 01/13/22 01/14/22 01/14/22 12:13 05:35 05:35 MCV 98.4 H MCH 30.4 MCHC 30.9 L RDW 16.9 H Plt Count 190 MPV 10.3 Absolute Nucleated RBC 0.000 Nucleated RBC % (auto) 0.0 PT 27.2 H INR 2.3 H Anion Gap Estim Creat Clear Calc Estimated GFR POC Glucose 73 Random Glucose Calcium 01/14/22 05:35 MCV MCH MCHC RDW Plt Count MPV Absolute Nucleated RBC Nucleated RBC % (auto) PT INR Anion Gap 15 Estim Creat Clear Calc 11.1 Estimated GFR 11 POC Glucose Random Glucose 74 Calcium 7.9 L Microbiology Microbiology Results: Microbiology 01/11/22 16:16 Blood Culture - Preliminary Blood - Venous No growth after 48 hours. 01/11/22 15:04 Blood Culture - Preliminary Blood - Venous No growth after 48 hours. Assessment and Plan (1) ESRD on dialysis: Status: Acute (2) Hypotension: Status: Acute (3) Abdominal mass: Status: Acute (4) Colitis: Status: Acute Plan Wednesday 1-year-old male with past medical history of ESRD on dialysis among other many medical issues who sent to the hospital from [facility] for hypotension, reported hypoxia. Patient is frontal bronchitis, acute colitis, as well as abdominal mass # colitis Denies any pain abdomen evidence for colitis on CT abdomen, leukocytosis improving Positive C diff antigen but negative for toxin Continue IV ceftriaxone and Flagyl vancomycin q.i.d. for prevention of C diff colitis follow cultures Continue IV fluids # abdominal mass Noted on CT scan adjacent to the colitis area Hematology-Oncology to follow-up after biopsy results GI to do colonoscopy tomorrow GoLYTELY overnight # hypotension chronic, improved continue IV fluids maintenance Continue midodrine to 10 mg t.i.d. # ESRD on dialysis MWF schedule Nephrology team to follow # bronchitis No evidence of acute exacerbation, supportive care # leukocytosis secondary to colitis, on antibiotics follow CBC # supratherapeutic INR INR 2.3 today Hold warfarin follow PT INR daily DVT prophylaxis: Coumadin Code status: full code Patient will require overnight hospital stay for management of colitis, as well as evaluation of abdominal mass to prevent possible decompensation and to severe sepsis. Quality Stroke Does the patient have a stroke diagnosis?: No VTE Prior VTE?: No VTE Risk Level:: Medical - moderate - high VTE Device Contraindication: Treatment Not Indicated VTE Drug Contraindication: N/A - Med Ordered
[2022-01-14 10:52] VITALS: BMI 21.3
--- NOTE | 2022-01-14 10:58 | MHC.CLN ---
RE: CONSULT PT IS SEVERELY MALNOURISHED PT WITH SEVERELY DEPLETED SUBCUTANEOUS FAT AND MUSCLE MASS. PT ADMITTED WITH DX SEVERE PROTEIN CALORIE MALNUTRITION AND CHRONIC CACHEXIA (SEE H&P) PT REQUIRE TF FOR 100% NUTRITION SUPPORT RECOMMEND NEPRO AT MAX GOAL RATE 45ML/HR AND 240ML FREE WATER FLUSHES Q 8HRS TO PROVIDE 1944KCALS (31KCALS/KG), 87G PROTEIN (1.4G/KG), 1505ML TOTAL WATER FROM FORMULA AND FLUSHES (24ML/KG) START NEPRO AT 10ML/HR AND INCREASE BY 10ML UNTIL MAX GOAL IS ACHIEVED MONITOR TOLERANCE, RESIDUALS AND LYTES
--- NOTE | 2022-01-14 11:26 | W.PM.DNNEP ---
Subjective Subjective This patient was seen during dialysis. Interval history: Evnets noted Physical Exam Vital Signs: Vital Signs: Last Vital Signs Temp 97.9 F 01/14/22 07:17 Pulse 70 01/14/22 07:17 Resp 18 01/14/22 07:17 BP 98/61 01/14/22 07:17 Pulse Ox 99 01/14/22 07:17 O2 Del Method 01/14/22 07:17 O2 Flow Rate 3 01/11/22 15:32 BMI result Body Mass Index 21.3 Const: Orientation/consciousness: oriented to person Resp: Auscultation: diminished lung sounds Cardio: Palpation: no palpable S4 Heart sounds: no gallops and no murmurs Neuro: General: oriented to person Motor exam (neuro): no asterixis Assessment & Plan Assessment and plan (1) ESRD on dialysis: Status: Acute Plan ESRD HD on MWF No s/s of uremia Anemia Epogen as needed C.diff Management per medical team Chronic hypotension Midodrine 10 mg TID Time Spent With Patient Time: Total time spent is greater than 50% in coordination of care (as documented) at patient's floor/unit and/or counseling patient: Procedures Date of Service Date of Service: 01/14/22
[2022-01-14 12:20] LABS: Glucose, Whole Blood 64 mg/dL (60-115)
--- NOTE | 2022-01-14 12:57 | MHC.CM.PN ---
Per ROUNDS discussion, Patient is not yet medically cleared for dc (Colonoscopy tomorrow); Returning to LT @ [facility] is the plan and CM will continue to follow.
[2022-01-14] MEDS: Fludrocortisone Acetate 0.1 MG TABLET 0.2 MG G-TUBE ×2 (13:16→20:24)
[2022-01-14] MEDS: lamoTRIgine 100 MG TABLET 200 MG G-TUBE (13:16)
[2022-01-14] MEDS: Famotidine 20 MG TABLET G-TUBE (13:16)
[2022-01-14] MEDS: QUEtiapine Fumarate 25 MG TABLET NG-TUBE ×2 (13:16→20:24)
[2022-01-14] MEDS: Cyanocobalamin (Vitamin B-12) 1,000 MCG TABLET 1000 MCG G-TUBE (13:16)
[2022-01-14] MEDS: Heparin Sodium,Porcine 5,000 UNIT/ML VIAL 5000 UNIT SUBCUT (13:17)
[2022-01-14] MEDS: 0.9 % Sodium Chloride Flush 3 ML SYRINGE IVFLUSH ×2 (13:17→18:12)
[2022-01-14 15:51] VITALS: PULSE 78; RESP 20; TEMP 36.9; O2SAT 97
[2022-01-14] MEDS: PEG 3350/Na Sulf,Bicarb,Cl/KCL 4,000 ML SOLN.RECON 4000 ML J-TUBE (18:14)
[2022-01-14 20:00] VITALS: BP 81/51; PULSE 76; RESP 18; TEMP 37.1; O2SAT 96
[2022-01-14] MEDS: OLANZapine 7.5 MG TABLET 15 MG G-TUBE (20:24)
[2022-01-14] MEDS: Melatonin 3 MG TABLET 6 MG G-TUBE (20:24)
[2022-01-14 23:50] VITALS: BP 77/51; PULSE 67; RESP 17; TEMP 36.6; O2SAT 96
[2022-01-15] VITALS (10 sets, daily range): BP systolic 72–123; BP diastolic 48–66; PULSE 60–83; RESP 16–20; TEMP 36.1–37.2; O2SAT 96–100
[2022-01-15] MEDS: metroNIDAZOLE 500 MG TABLET G-TUBE ×3 (03:52→17:31)
[2022-01-15] MEDS: vancomycin HCL Oral Solution 125 MG/5 ML SOLN.RECON G-TUBE ×4 (03:52→23:33)
[2022-01-15] MEDS: Lactated Ringers 1,000 ML 100 ML IVCONT (05:37)
[2022-01-15] MEDS: Midodrine HCl 10 MG TABLET G-TUBE ×2 (05:37→12:52)
[2022-01-15 06:34] LABS: INTERNATIONAL NORM RATIO 1.6 (0.9-1.1); Prothrombin Time 19.1 SEC (10.0-13.1)
[2022-01-15] MEDS: cefTRIAXone sodium 1 GM in 0.9 % Sodium Chloride 50 ML IV (09:14)
[2022-01-15] MEDS: lamoTRIgine 100 MG TABLET 200 MG G-TUBE (09:16)
[2022-01-15] MEDS: QUEtiapine Fumarate 25 MG TABLET NG-TUBE ×2 (09:16→20:25)
[2022-01-15] MEDS: Fludrocortisone Acetate 0.1 MG TABLET 0.2 MG G-TUBE ×2 (09:16→20:26)
[2022-01-15] MEDS: Cyanocobalamin (Vitamin B-12) 1,000 MCG TABLET 1000 MCG G-TUBE (09:16)
[2022-01-15] MEDS: Famotidine 20 MG TABLET G-TUBE (09:16)
[2022-01-15] MEDS: 0.9 % Sodium Chloride Flush 3 ML SYRINGE IVFLUSH ×2 (09:17→17:31)
--- NOTE | 2022-01-15 11:00 | PM.PNNEP ---
Subjective Subjective Date of Service: 01/19/22 Interval history: Events noted Physical Exam Vital Signs: Vital Signs: Last Vital Signs Temp 98.4 F 01/15/22 08:00 Pulse 60 01/15/22 08:00 Resp 20 01/15/22 08:00 BP 105/58 L 01/15/22 08:00 Pulse Ox 97 01/15/22 08:00 O2 Del Method 01/15/22 08:00 O2 Flow Rate 3 01/11/22 15:32 BMI result Body Mass Index 21.3 Const: Orientation/consciousness: oriented to person Resp: Auscultation: diminished lung sounds Cardio: Palpation: no palpable S4 Heart sounds: no gallops and no murmurs Neuro: General: oriented to person Motor exam (neuro): no asterixis Objective Data Labs CBC & Chem 7: 01/18/22 06:19 01/18/22 06:19 Labs: Laboratory Results - last 24 hr 01/14/22 01/15/22 12:15 05:59 PT 19.1 H INR 1.6 H POC Glucose 64 Microbiology Microbiology Results: Microbiology 01/11/22 16:16 Blood - Venous Blood Culture - Preliminary No growth after 48 hours. 01/11/22 15:04 Blood - Venous Blood Culture - Preliminary No growth after 48 hours. Procedures Date of Service Date of Service: 01/15/22 Assessment & Plan Assessment and plan (1) ESRD on dialysis: Status: Acute Plan ESRD HD on MWF No s/s of uremia Anemia Epogen as needed C.diff Management per medical team Chronic hypotension Midodrine 10 mg TID Time Spent With Patient Time: Total time spent is greater than 50% in coordination of care (as documented) at patient's floor/unit and/or counseling patient: Progress Note: Quality Stroke Does the patient have a stroke diagnosis?: No
--- NOTE | 2022-01-15 11:55 | ECG_ITS ---
Test Reason : afib Blood Pressure : / mmHG Vent. Rate : 064 BPM Atrial Rate : 064 BPM P-R Int : 254 ms QRS Dur : 140 ms QT Int : 430 ms P-R-T Axes : 018 -01 001 degrees QTc Int : 443 ms Sinus rhythm with 1st degree A-V block with Premature atrial complexes Right bundle branch block Abnormal ECG When compared with ECG of 11-JAN-2022 14:33, Premature atrial complexes are now Present QRS axis Shifted left QT has shortened Referred By: Isac Rodriguez Electronically Signed By:ADI SPANGLER
--- NOTE | 2022-01-15 12:35 | P.PNIM_ITS ---
Subjective Subjective Date of Service: 01/15/22 Interval History: Seen and evaluated this morning denies any pain, fever or chills Tolerating diet through J-tube Having bowel movement Blood pressure fluctuating No reported overnight events Review of Systems No fever, chills but has generalized weakness No chest pain, palpitation No shortness of breath or coughing No abdominal pain, nausea or vomiting No urinary symptoms No any rash or wounds Physical Exam Vital Signs: Vital Signs: Last Vital Signs Temp 99.0 F 01/15/22 11:31 Pulse 66 01/15/22 11:31 Resp 20 01/15/22 11:31 BP 102/48 L 01/15/22 11:31 Pulse Ox 96 01/15/22 11:31 O2 Del Method 01/15/22 11:31 O2 Flow Rate 3 01/11/22 15:32 BMI result Body Mass Index 21.3 Const: Other: Constitutional : Alert, interactive, frail and underweight Neck : Normal inspection, Supple Cardiovascular : RRR, no JVP, no lower extremity edema Respiratory : fair bilateral air entry, no crackles, wheezes or rhonchi Gastrointestinal: soft, lax, decreased bowel sounds, Non tender, ostomy in place in chest wall with liquid drainage from it , J-tube clean with no surrounding erythema Skin : Warm, Dry Neurological : Alert & oriented x3, No focal deficit , CN 2-12 within normal Objective Data Active Medications Acetaminophen (Acetaminophen 325 Mg Tablet) 650 mg PO Q6H PRN PRN Reason: Pain, Mild (Pain Scale 1-3) Cyanocobalamin (Cyanocobalamin (Vitamin B-12) 1,000 Mcg Tablet) 1,000 mcg G- TUBE DAILY [facility] Last Admin: 01/15/22 09:16 Dose: 1,000 mcg Documented By: DUC Docusate Sodium (Docusate Sodium 100 Mg Capsule) 100 mg PO BID [facility] Last Admin: 01/15/22 08:44 Dose: Not Given Documented By: DUC Non-Admin Reason: not G tube compatible Famotidine (Famotidine 20 Mg Tablet) 20 mg G-TUBE DAILY [facility] Last Admin: 01/15/22 09:16 Dose: 20 mg Documented By: DUC Fludrocortisone Acetate (Fludrocortisone Acetate 0.1 Mg Tablet) 0.2 mg G-TUBE BID [facility] Last Admin: 01/15/22 09:16 Dose: 0.2 mg Documented By: DUC Heparin Sodium (Porcine) (Heparin Sodium,Porcine 5,000 Unit/Ml Vial) 5,000 unit SUBCUT Q12H [facility] Last Admin: 01/15/22 08:48 Dose: Not Given Documented By: DUC Non-Admin Reason: procedure today Ceftriaxone Sodium 1 gm/ (Sodium Chloride) 50 mls @ 100 mls/hr IV Q24H [facility] Last Admin: 01/15/22 09:14 Dose: 100 mls/hr Documented By: DUC Lamotrigine (Lamotrigine 100 Mg Tablet) 200 mg G-TUBE DAILY [facility] Last Admin: 01/15/22 09:16 Dose: 200 mg Documented By: DUC Melatonin (Melatonin 3 Mg Tablet) 6 mg G-TUBE BEDTIME [facility] Last Admin: 01/14/22 20:24 Dose: 6 mg Documented By: TAD Metronidazole (Metronidazole 500 Mg Tablet) 500 mg G-TUBE Q8H [facility] Last Admin: 01/15/22 09:16 Dose: 500 mg Documented By: DUC Midodrine (Midodrine Hcl 10 Mg Tablet) 10 mg G-TUBE TID@0400,1300,1700 [facility] Last Admin: 01/15/22 05:37 Dose: 10 mg Documented By: TAD Olanzapine (Olanzapine 5 Mg Tablet) 5 mg G-TUBE Q4H PRN PRN Reason: Agitation Olanzapine (Olanzapine 7.5 Mg Tablet) 15 mg G-TUBE BEDTIME [facility] Last Admin: 01/14/22 20:24 Dose: 15 mg Documented By: TAD Ondansetron HCl (Ondansetron Hcl 4 Mg/2 Ml Vial) 4 mg IVPUSH Q8H PRN PRN Reason: Nausea and Vomiting Pharmacy Consult (Consult Rx Perform Med Rec) 1 each MISCELLANE ONCE PRN PRN Reason: Consult order Quetiapine Fumarate (Quetiapine Fumarate 25 Mg Tablet) 25 mg NG-TUBE BID [facility] Last Admin: 01/15/22 09:16 Dose: 25 mg Documented By: DUC Sodium Chloride (0.9 % Sodium Chloride Flush 3 Ml Syringe) 3 ml IVFLUSH QSHIFT [facility] Last Admin: 01/15/22 09:17 Dose: 3 ml Documented By: DUC Vancomycin HCl (Vancomycin Hcl Oral Solution 125 Mg/5 Ml Soln.Recon) 125 mg G- TUBE Q6H [facility] Last Admin: 01/15/22 09:17 Dose: 125 mg Documented By: DCU Warfarin Sodium (Warfarin Sodium 6 Mg Tablet) 6 mg PO DAILY@1800 [facility] Labs CBC & Chem 7: 01/14/22 05:35 01/14/22 05:35 Labs: Laboratory Results - last 24 hr 01/15/22 05:59 PT 19.1 H INR 1.6 H Assessment and Plan (1) ESRD on dialysis: Status: Acute (2) Hypotension: Status: Acute (3) Abdominal mass: Status: Acute (4) Colitis: Status: Acute Plan 71-year-old male with past medical history of ESRD on dialysis among other many medical issues who sent to the hospital from [facility] for hypotension, reported hypoxia. Patient is frontal bronchitis, acute colitis, as well as abdominal mass # colitis Denies any pain abdomen Colitis can explain the hypotension and anemia evidence for colitis on CT abdomen, leukocytosis improving Positive C diff antigen but negative for toxin Continue IV ceftriaxone and Flagyl vancomycin q.i.d. to cover for C diff colitis Negative blood cultures Continue IV fluids # abdominal mass Noted on CT scan adjacent to the colitis area Hematology-Oncology to follow-up after biopsy results Colonoscopy done, severe inflammation and ulcerated fall with injury mccrary seen at the area CT scan reported as possible mass, patchy erythema and ulceration GI input appreciated, could be secondary to IBD, C diff colitis Add Meselamin p.o. and enema depending on the biopsy results Consider steroids check TB, hep B,C, HIv serologies. # hypotension chronic, fluctuate continue IV fluids maintenance Continue midodrine to 10 mg t.i.d. # ESRD on dialysis MWF schedule Nephrology team to follow # bronchitis No evidence of acute exacerbation, supportive care # leukocytosis secondary to colitis, on antibiotics follow CBC # supratherapeutic INR INR 1.4 today Restart warfarin follow PT INR daily DVT prophylaxis: Coumadin Code status: full code Patient will require overnight hospital stay for management of colitis with IV antibiotics to prevent possible decompensation and to severe sepsis. Quality Stroke Does the patient have a stroke diagnosis?: No VTE Prior VTE?: No VTE Risk Level:: Medical - moderate - high VTE Device Contraindication: Treatment Not Indicated VTE Drug Contraindication: N/A - Med Ordered
--- NOTE | 2022-01-15 12:53 | MHC.SHP ---
Pre-Procedural Eval Section A Date of Service: 01/15/22 The patient is an INPATIENT: Yes The History & Physical has been completed within 30 days and I have reviewed it.: Yes Section B Chief Complaint: Colitis, Bronchitis, Colonic mass Allergies: Allergies Allergy/AdvReac Type Severity Reaction Status Date / Time NICK Inhibitors Allergy Unknown Unknown Verified 01/11/22 14:14 aspirin Allergy Unknown Unknown Verified 01/11/22 14:14 divalproex sodium Allergy Unknown Unknown Verified 01/11/22 14:14 valproic acid Allergy Unknown Unknown Verified 01/11/22 14:14 Plan Diagnosis/Plan: Unchanged I have reviewed the history and physical and performed a pertinent physical examination on my patient. No changes have occurred unless specified.
--- NOTE | 2022-01-15 13:27 | P.CONAN_ITS ---
[facility] Active Problems Active Problems: All Active Problems (Updated 01/13/22 @ 12:00 by Latrice Valero MD) ESRD on dialysis (Acute) Hypotension (Acute) Abdominal mass (Acute) Bronchitis (Acute) Severe protein-calorie malnutrition (Acute) Acute hypotension (Acute) Lethargic (Acute) Weakness (Acute) Adult failure to thrive (Acute) Leukocytosis (Acute) Hypovolemia (Acute) Colitis (Acute) Past Medical History Medical History Chronic hypotension COPD (chronic obstructive pulmonary disease) COVID-19 virus infection Diabetes ESRD on dialysis History of gastrectomy History of TIA (transient ischemic attack) HLD (hyperlipidemia) Jejunostomy tube present Schizophrenic disorder Severe protein-calorie malnutrition Functional capacity: uses cane/walker Family History Family history of problems with anesthesia: No Surgical History Surgical History H/O esophagectomy History of Problems with Anesthesia: No Social History Social History Household Members: Other Housing: Custodial Do you presently have visiting nurse or other home services: Yes Unable to assess alcohol history related to: Unknown Alcohol intake: former Patient Tobacco Use Status: Former Tobacco user e-Cigarette/Vaping Use: Never Used Advance Directives Date on File: 01/04/22 service: No Current occupational status: disabled Meds Allergies Allergy/AdvReac Type Severity Reaction Status Date / Time NICK Inhibitors Allergy Unknown Unknown Verified 01/11/22 14:14 aspirin Allergy Unknown Unknown Verified 01/11/22 14:14 divalproex sodium Allergy Unknown Unknown Verified 01/11/22 14:14 valproic acid Allergy Unknown Unknown Verified 01/11/22 14:14 Active Medications: Current Medications Acetaminophen (Acetaminophen 325 Mg Tablet) 650 mg PO Q6H PRN PRN Reason: Pain, Mild (Pain Scale 1-3) Cyanocobalamin (Cyanocobalamin (Vitamin B-12) 1,000 Mcg Tablet) 1,000 mcg G- TUBE DAILY [facility], [facility] Last Admin: 01/15/22 09:16 Dose: 1,000 mcg Docusate Sodium (Docusate Sodium 100 Mg Capsule) 100 mg PO BID [facility] Last Admin: 01/15/22 08:44 Dose: Not Given Famotidine (Famotidine 20 Mg Tablet) 20 mg G-TUBE DAILY [facility] Last Admin: 01/15/22 09:16 Dose: 20 mg Fludrocortisone Acetate (Fludrocortisone Acetate 0.1 Mg Tablet) 0.2 mg G-TUBE BID [facility] Last Admin: 01/15/22 09:16 Dose: 0.2 mg Heparin Sodium (Porcine) (Heparin Sodium,Porcine 5,000 Unit/Ml Vial) 5,000 unit SUBCUT Q12H [facility] Last Admin: 01/15/22 08:48 Dose: Not Given Ceftriaxone Sodium 1 gm/ (Sodium Chloride) 50 mls @ 100 mls/hr IV Q24H [facility] Last Admin: 01/15/22 09:14 Dose: 100 mls/hr Lamotrigine (Lamotrigine 100 Mg Tablet) 200 mg G-TUBE DAILY [facility] Last Admin: 01/15/22 09:16 Dose: 200 mg Melatonin (Melatonin 3 Mg Tablet) 6 mg G-TUBE BEDTIME [facility] Last Admin: 01/14/22 20:24 Dose: 6 mg Metronidazole (Metronidazole 500 Mg Tablet) 500 mg G-TUBE Q8H [facility] Last Admin: 01/15/22 09:16 Dose: 500 mg Midodrine (Midodrine Hcl 10 Mg Tablet) 10 mg G-TUBE TID@0400,1300,1700 [facility] Last Admin: 01/15/22 12:52 Dose: 10 mg Olanzapine (Olanzapine 5 Mg Tablet) 5 mg G-TUBE Q4H PRN PRN Reason: Agitation Olanzapine (Olanzapine 7.5 Mg Tablet) 15 mg G-TUBE BEDTIME [facility] Last Admin: 01/14/22 20:24 Dose: 15 mg Ondansetron HCl (Ondansetron Hcl 4 Mg/2 Ml Vial) 4 mg IVPUSH Q8H PRN PRN Reason: Nausea and Vomiting Pharmacy Consult (Consult Rx Perform Med Rec) 1 each MISCELLANE ONCE PRN PRN Reason: Consult order Quetiapine Fumarate (Quetiapine Fumarate 25 Mg Tablet) 25 mg NG-TUBE BID [facility] Last Admin: 01/15/22 09:16 Dose: 25 mg Sodium Chloride (0.9 % Sodium Chloride Flush 3 Ml Syringe) 3 ml IVFLUSH QSHIFT [facility] Last Admin: 01/15/22 09:17 Dose: 3 ml Vancomycin HCl (Vancomycin Hcl Oral Solution 125 Mg/5 Ml Soln.Recon) 125 mg G- TUBE Q6H [facility] Last Admin: 01/15/22 09:17 Dose: 125 mg Warfarin Sodium (Warfarin Sodium 6 Mg Tablet) 6 mg PO DAILY@1800 [facility] Home Medications Medication Instructions Recorded Confirmed Last Taken Type cyanocobalamin (vitamin B-12) 1,000 mcg feeding tube DAILY 01/11/22 01/11/22 01/11/22 History 1,000 mcg tablet docusate sodium 100 mg capsule 100 mg PO BID 01/11/22 01/11/22 01/11/22 History (Colace) doxycycline hyclate 100 mg tablet 100 mg feeding tube BID 01/11/22 01/11/22 01/11/22 History famotidine 20 mg tablet 20 mg feeding tube DAILY 01/11/22 01/11/22 01/11/22 History fludrocortisone 0.1 mg tablet 2 tab feeding tube BID 01/11/22 01/11/22 01/11/22 History lamotrigine 25 mg chewable 200 mg feeding tube DAILY 01/11/22 01/11/22 01/11/22 History dispersible tablet melatonin 3 mg tablet 2 tab feeding tube BEDTIME 01/11/22 01/11/22 01/10/22 History midodrine 10 mg tablet 10 mg feeding tube DAILY 01/11/22 01/11/22 01/09/22 History olanzapine 15 mg tablet 15 mg feeding tube BEDTIME 01/11/22 01/11/22 01/09/22 History olanzapine 5 mg tablet 5 mg feeding tube Q4H PRN Agitation 01/11/22 01/11/22 01/11/22 History quetiapine 25 mg tablet 25 mg feeding tube BID 01/11/22 01/11/22 01/10/22 History vitamin B complex and vitamin C 1 cap feeding tube DAILY 01/11/22 01/11/22 01/10/22 History no.20-folic acid 1 mg capsule (Renal Caps) warfarin 6 mg tablet 6 mg feeding tube DAILY@1800 01/11/22 01/11/22 01/10/22 History Exam Exam Date and Time: January 15, 2022 1327 Height,Weight and Vital Signs: Height 5 ft 7 in Weight 61.8 kg Last Vital Signs Temp 99.0 F 01/15/22 11:31 Pulse 66 01/15/22 11:31 Resp 20 01/15/22 11:31 BP 102/48 L 01/15/22 11:31 Pulse Ox 96 01/15/22 11:31 O2 Del Method 01/15/22 11:31 O2 Flow Rate 3 01/11/22 15:32 Pertinent Lab Results Pertinent Lab Results: Laboratory Tests 01/11/22 01/11/22 01/11/22 14:19 15:52 16:16 WBC 19.1 H RBC 3.89 L Hgb 11.9 L Hct 38.0 L MCV 97.7 MCH 30.6 MCHC 31.3 RDW 16.5 H Plt Count 248 MPV 10.1 Immature Gran % (Auto) 0.7 H Neut % (Auto) 85.2 H Lymph % (Auto) 8.8 L [place] % (Auto) 4.4 Eos % (Auto) 0.4 Baso % (Auto) 0.5 Lymph # (Auto) 1.7 [place] # (Auto) 0.8 Eos # (Auto) 0.1 Baso # (Auto) 0.1 Abs Immat Gran (auto) 0.14 H Absolute Neuts (auto) 16.2 H Absolute Nucleated RBC 0.000 Nucleated RBC % (auto) 0.0 Smear Tech's Comments PT INR APTT Sodium Potassium Chloride Carbon Dioxide Anion Gap BUN Creatinine Estim Creat Clear Calc Estimated GFR POC Glucose 99 Random Glucose Lactic Acid Calcium Magnesium Total Bilirubin Direct Bilirubin AST ALT Alkaline Phosphatase Total Protein Albumin TSH Random Cortisol C. difficile Tox B Gene C. difficile Toxin A&B C. difficile Interpret COVID-19 (ELISABETH) Negative COVID-19 Clin Com See Note 01/11/22 01/11/22 01/11/22 16:16 16:16 16:16 WBC RBC Hgb Hct MCV MCH MCHC RDW Plt Count MPV Immature Gran % (Auto) Neut % (Auto) Lymph % (Auto) [place] % (Auto) Eos % (Auto) Baso % (Auto) Lymph # (Auto) [place] # (Auto) Eos # (Auto) Baso # (Auto) Abs Immat Gran (auto) Absolute Neuts (auto) Absolute Nucleated RBC Nucleated RBC % (auto) Smear Tech's Comments PT 47.7 H INR 3.9 H APTT 47.8 H Sodium 145 Potassium 3.0 L Chloride 107 Carbon Dioxide 18 L Anion Gap 23 H BUN 40 H D Creatinine 6.81 H* Estim Creat Clear Calc 7.4 Estimated GFR 8 POC Glucose Random Glucose 97 Lactic Acid 1.5 Calcium 8.7 Magnesium 2.1 Total Bilirubin 0.5 Direct Bilirubin 0.3 AST 25 ALT 26 Alkaline Phosphatase 124 H Total Protein 6.5 Albumin 3.9 TSH 1.00 Random Cortisol C. difficile Tox B Gene C. difficile Toxin A&B C. difficile Interpret COVID-19 (ELISABETH) COVID-19 Clin Com 01/11/22 01/12/22 01/12/22 Unknown 04:30 07:21 WBC 17.0 H RBC 3.34 L Hgb 10.1 L Hct 32.9 L MCV 98.5 H MCH 30.2 MCHC 30.7 L RDW 16.6 H Plt Count 236 MPV 10.1 Immature Gran % (Auto) 0.8 H Neut % (Auto) 93.0 H Lymph % (Auto) 4.3 L [place] % (Auto) 1.6 L Eos % (Auto) 0.1 Baso % (Auto) 0.2 Lymph # (Auto) 0.7 L [place] # (Auto) 0.3 Eos # (Auto) 0.0 Baso # (Auto) 0.0 Abs Immat Gran (auto) 0.14 H Absolute Neuts (auto) 15.8 H Absolute Nucleated RBC 0.000 Nucleated RBC % (auto) 0.0 Smear Tech's Comments VERIFIED PT INR APTT Sodium Potassium Chloride Carbon Dioxide Anion Gap BUN Creatinine Estim Creat Clear Calc Estimated GFR POC Glucose 65 Random Glucose Lactic Acid Calcium Magnesium Total Bilirubin Direct Bilirubin AST ALT Alkaline Phosphatase Total Protein Albumin TSH Random Cortisol 14.7 C. difficile Tox B Gene C. difficile Toxin A&B C. difficile Interpret COVID-19 (ELISABETH) COVID-19 Clin Com 01/12/22 01/12/22 01/13/22 08:01 09:12 04:53 WBC RBC Hgb Hct MCV MCH MCHC RDW Plt Count MPV Immature Gran % (Auto) Neut % (Auto) Lymph % (Auto) [place] % (Auto) Eos % (Auto) Baso % (Auto) Lymph # (Auto) [place] # (Auto) Eos # (Auto) Baso # (Auto) Abs Immat Gran (auto) Absolute Neuts (auto) Absolute Nucleated RBC Nucleated RBC % (auto) Smear Tech's Comments PT 59.9 H 49.7 H INR 4.9 H 4.1 H APTT Sodium Potassium Chloride Carbon Dioxide Anion Gap BUN Creatinine Estim Creat Clear Calc Estimated GFR POC Glucose 67 Random Glucose Lactic Acid Calcium Magnesium Total Bilirubin Direct Bilirubin AST ALT Alkaline Phosphatase Total Protein Albumin TSH Random Cortisol C. difficile Tox B Gene C. difficile Toxin A&B C. difficile Interpret COVID-19 (ELISABETH) COVID-19 Clin Com 01/13/22 01/13/22 01/13/22 05:03 07:18 09:36 WBC 11.0 H RBC 3.40 L Hgb 10.2 L Hct 33.4 L MCV 98.2 H MCH 30.0 MCHC 30.5 L RDW 16.9 H Plt Count 221 MPV 9.9 Immature Gran % (Auto) Neut % (Auto) Lymph % (Auto) [place] % (Auto) Eos % (Auto) Baso % (Auto) Lymph # (Auto) [place] # (Auto) Eos # (Auto) Baso # (Auto) Abs Immat Gran (auto) Absolute Neuts (auto) Absolute Nucleated RBC 0.000 Nucleated RBC % (auto) 0.0 Smear Tech's Comments PT INR APTT Sodium Potassium Chloride Carbon Dioxide Anion Gap BUN Creatinine Estim Creat Clear Calc Estimated GFR POC Glucose 75 Random Glucose Lactic Acid Calcium Magnesium Total Bilirubin Direct Bilirubin AST ALT Alkaline Phosphatase Total Protein Albumin TSH Random Cortisol C. difficile Tox B Gene POSITIVE A* C. difficile Toxin A&B Negative C. difficile Interpret SEE NOTE COVID-19 (ELISABETH) COVID-19 Clin Com 01/13/22 01/13/22 01/14/22 09:36 12:13 05:35 WBC RBC Hgb Hct MCV MCH MCHC RDW Plt Count MPV Immature Gran % (Auto) Neut % (Auto) Lymph % (Auto) [place] % (Auto) Eos % (Auto) Baso % (Auto) Lymph # (Auto) [place] # (Auto) Eos # (Auto) Baso # (Auto) Abs Immat Gran (auto) Absolute Neuts (auto) Absolute Nucleated RBC Nucleated RBC % (auto) Smear Tech's Comments PT 27.2 H INR 2.3 H APTT Sodium 143 Potassium 3.1 L Chloride 109 H Carbon Dioxide 20 L Anion Gap 17 BUN 24 H Creatinine 4.47 H* Estim Creat Clear Calc 12.8 Estimated GFR 13 POC Glucose 73 Random Glucose 80 Lactic Acid Calcium 8.0 L D Magnesium Total Bilirubin Direct Bilirubin AST ALT Alkaline Phosphatase Total Protein Albumin TSH Random Cortisol C. difficile Tox B Gene C. difficile Toxin A&B C. difficile Interpret COVID-19 (ELISABETH) COVID-19 IWT Com 01/14/22 01/14/22 01/14/22 05:35 05:35 12:15 WBC 7.5 RBC 3.12 L Hgb 9.5 L Hct 30.7 L MCV 98.4 H MCH 30.4 MCHC 30.9 L RDW 16.9 H Plt Count 190 MPV 10.3 Immature Gran % (Auto) Neut % (Auto) Lymph % (Auto) [place] % (Auto) Eos % (Auto) Baso % (Auto) Lymph # (Auto) [place] # (Auto) Eos # (Auto) Baso # (Auto) Abs Immat Gran (auto) Absolute Neuts (auto) Absolute Nucleated RBC 0.000 Nucleated RBC % (auto) 0.0 Smear Tech's Comments PT INR APTT Sodium 140 Potassium 3.3 Chloride 108 Carbon Dioxide 20 L Anion Gap 15 BUN 30 H Creatinine 5.16 H* Estim Creat Clear Calc 11.1 Estimated GFR 11 POC Glucose 64 Random Glucose 74 Lactic Acid Calcium 7.9 L Magnesium Total Bilirubin Direct Bilirubin AST ALT Alkaline Phosphatase Total Protein Albumin TSH Random Cortisol C. difficile Tox B Gene C. difficile Toxin A&B C. difficile Interpret COVID-19 (ELISABETH) COVID-19 IWT Com 01/15/22 05:59 WBC RBC Hgb Hct MCV MCH MCHC RDW Plt Count MPV Immature Gran % (Auto) Neut % (Auto) Lymph % (Auto) [place] % (Auto) Eos % (Auto) Baso % (Auto) Lymph # (Auto) [place] # (Auto) Eos # (Auto) Baso # (Auto) Abs Immat Gran (auto) Absolute Neuts (auto) Absolute Nucleated RBC Nucleated RBC % (auto) Smear Tech's Comments PT 19.1 H INR 1.6 H APTT Sodium Potassium Chloride Carbon Dioxide Anion Gap BUN Creatinine Estim Creat Clear Calc Estimated GFR POC Glucose Random Glucose Lactic Acid Calcium Magnesium Total Bilirubin Direct Bilirubin AST ALT Alkaline Phosphatase Total Protein Albumin TSH Random Cortisol C. difficile Tox B Gene C. difficile Toxin A&B C. difficile Interpret COVID-19 (ELISABETH) COVID-19 Clin Com Assessment and Plan Final Anesthetic Review Family History of Problems with Anesthesia: No History of Problems with Anesthesia: No
--- NOTE | 2022-01-15 13:57 | PC.NURSE ---
Patient not oriented to time. Attempted to reach HCP/brother Bernabe by phone, message left. Dr Crain & Vanda aware patient not oriented to time when questioned by this nurse.
--- NOTE | 2022-01-15 14:09 | PC.NURSE ---
Addendum entered by Abby Ellis RN 01/15/22 14:11: Cyndie Frias aware of situation Original Note: Two attempts made to contact HCP/Brother Bernabe. Dr Crain & Vanda to cosign consents for emergent need for procedure. Patient aware of procedure & place but unable to give correct date/year.
--- NOTE | 2022-01-15 14:54 | W.PM.OPN ---
Operative Note Operative Note Date of Service: 01/15/22 Narrative: Operative Information Procedure Description: Colonoscopy Indication: abnormal Ct imaging, concern for cancer Anesthesia: MAC COLONOSCOPY Instrument: Olympus variable stiffness pediatric scope 190L Colonoscopy Monitoring: Vital signs and clinical assessment, continuous EKG monitoring, Pulse oximetry, Carbon Dioxide monitoring and blood pressure monitoring were done throughout the procedure. Colon withdrawal time was 10 minutes. Procedure: The patient was placed in the left lateral decubitis position and pre-procedure medications were administered. After a digital rectal examination of the ano-rectum, the video colonoscope was inserted into the rectum and advanced through the colon to the cecum/TI. The colonoscope was slowly withdrawn in a retrograde panoramic fashion and the colon mucosa was carefully examined including a retroflexed view of the rectum. Findings and interventions are described below. Procedure Difficulty: easy Findings: Terminal Ileum-mild ileal inflammation, bx taken Cecum: erythema, scarring and friability, bx taken Ascending Colon: severe inflammation with one severely ulcerated fold with induration and edema corresponding to the area seen on CT scan, bx taken, chronic atrophy and scarred appearing mucosa Transverse Colon -patchy erythema Descending Colon: segements of normal mucosa with interposed areas of ulceration and erythema Sigmoid Colon: patchy erythema and ulceration Rectum: Retroflexion not done. Moderately severe ulceration and erythema with edema and congestion bx taken Anorectum - normal Colon preparation: [place] Bowel Preparation Scale Right colon; 3 Transverse colon: 3 Left colon; 3 (0 = Unprepared colon segment with mucosa not seen due to solid stool that cannot be cleared. 1 = Portion of mucosa of the colon segment seen, but other areas of the colon segment not well seen due to staining, residual stool and/or opaque liquid. 2 = Minor amount of residual staining, small fragments of stool and/or opaque liquid, but mucosa of colon segment seen well. 3 = Entire mucosa of colon segment seen well with no residual staining, small fragments of stool or opaque liquid) Impression and Post Procedure Diagnosis: severe patchy colitis, right >left Plan: treat c diff as doing, may be the cause of current findings although some endoscopic features such as scarring and atrophy suggest a chronic process such as crohns disease or may have c diff superimposed on crohns may add mesalamine PO and enemas depending on biopsy results, possible steroids as well, may need biologics in longer term. In case does , pls check TB, hep B,C, HIv serologies. colitis could explain hypotension and anemia. Above findings were reviewed with the patient and relevant handouts were provided if indicated.
[2022-01-15] MEDS: Warfarin Sodium 6 MG TABLET PO (17:32)
[2022-01-15] MEDS: OLANZapine 7.5 MG TABLET 15 MG G-TUBE (20:25)
[2022-01-15] MEDS: Melatonin 3 MG TABLET 6 MG G-TUBE (20:25)
[2022-01-15] MEDS: Heparin Sodium,Porcine 5,000 UNIT/ML VIAL 5000 UNIT SUBCUT (23:33)
[2022-01-16 00:04] VITALS: BP 90/60
[2022-01-16] MEDS: vancomycin HCL Oral Solution 125 MG/5 ML SOLN.RECON G-TUBE ×4 (03:05→22:28)
[2022-01-16] MEDS: Midodrine HCl 10 MG TABLET G-TUBE ×2 (03:05→13:35)
[2022-01-16] MEDS: metroNIDAZOLE 500 MG TABLET G-TUBE ×3 (03:05→18:31)
[2022-01-16 03:53] VITALS: BP 86/54; PULSE 59; RESP 18; TEMP 36.3; O2SAT 96
[2022-01-16] MEDS: Acetaminophen 325 MG TABLET 650 MG PO (04:01)
[2022-01-16 04:50] LABS: HIV Num 1 1.41 S/CO (0.00-0.99)
[2022-01-16 05:11] LABS: HBS Num1 0.89 mIU/mL (0-7.99); HBc Num1 0.07 S/CO (0.00-0.79); HBsAGNum1 0.24 S/CO (0.00-0.99); Hepatitis A Antibody IgM 0.13 Index (0-0.79); Hepatitis B Core Antibody Nonreactive (Nonreactive); Hepatitis B Surface Antigen Negative (Negative); ~HepC Num1 0.11 S/CO (0.00-0.79); ~Hepatitis A Antibody IgM Nonreactive (Nonreactive); ~Hepatitis B Surface Antibody NONREACTIVE (Nonreactive); ~Hepatitis C Antibody Nonreactive (Nonreactive)
[2022-01-16 05:54] LABS: HIV AB/AG Nonreactive (Nonreactive); HIV Num 2 0.05 S/CO; HIV Num 3 0.06 S/CO
[2022-01-16] MEDS: cefTRIAXone sodium 1 GM in 0.9 % Sodium Chloride 50 ML IV (07:38)
[2022-01-16] MEDS: lamoTRIgine 100 MG TABLET 200 MG G-TUBE (07:40)
[2022-01-16] MEDS: Famotidine 20 MG TABLET G-TUBE (07:41)
[2022-01-16] MEDS: Fludrocortisone Acetate 0.1 MG TABLET 0.2 MG G-TUBE ×2 (07:41→22:26)
[2022-01-16] MEDS: Cyanocobalamin (Vitamin B-12) 1,000 MCG TABLET 1000 MCG G-TUBE (07:41)
[2022-01-16] MEDS: QUEtiapine Fumarate 25 MG TABLET NG-TUBE ×2 (07:41→22:26)
[2022-01-16] MEDS: 0.9 % Sodium Chloride Flush 3 ML SYRINGE IVFLUSH ×3 (07:41→22:41)
[2022-01-16 08:00] VITALS: BP 118/55; PULSE 56; RESP 20; TEMP 36.2; O2SAT 99
[2022-01-16 08:51] LABS: INTERNATIONAL NORM RATIO 1.6 (0.9-1.1); Prothrombin Time 18.7 SEC (10.0-13.1)
[2022-01-16] MEDS: Heparin Sodium,Porcine 5,000 UNIT/ML VIAL 5000 UNIT SUBCUT (09:01)
[2022-01-16 09:06] LABS: Blood Urea Nitrogen 29 mg/dL (9-16); Calcium 7.6 mg/dL (8.4-10.2); Creatinine Clr Calc Pharmacy 11.9; Estimated Glomerular Filt Rate 12; Glucose Random 100 mg/dL (60-115)
[2022-01-16 09:12] LABS: Anion Gap 17 (12-20); Carbon Dioxide 23 mmol/L (22-29); Chloride 100 mmol/L (96-108); Potassium 2.5 mmol/L (3.3-5.1); Sodium 137 mmol/L (135-145)
[2022-01-16 09:21] LABS: Hematocrit 28.7 % (42.0-52.0); Hemoglobin 9.2 g/dl (14.0-18.0); Mean Corpuscular HGB Conc 32.1 g/dl (31.0-36.0); Mean Corpuscular Hemoglobin 30.7 pg (27.0-33.0); Mean Corpuscular Volume 95.7 fL (80.0-98.0); Mean Platelet Volume 10.1 fL (9.4-12.4); Platelet Count 182 X10*3/uL (160-400); Red Cell Distribution Width 16.2 % (11.0-16.0); White Blood Count 4.9 X10*3/uL (4.8-10.8)
[2022-01-16] MEDS: Potassium Chloride Packet 20 MEQ PACKET 40 MEQ G-TUBE ×2 (10:18→22:27)
--- NOTE | 2022-01-16 10:18 | P.PNIM_ITS ---
Subjective Subjective Date of Service: 01/16/22 Interval History: cc: lethargy, weakness interval history:no complaints Cardiovascular Cardiovascular: Reports no additional cardiovascular complaints Respiratory Respiratory: Reports no additional respiratory complaints Physical Exam Vital Signs: Vital Signs: Last Vital Signs Temp 97.2 F 01/16/22 08:00 Pulse 56 01/16/22 08:00 Resp 20 01/16/22 08:00 BP 118/55 L 01/16/22 08:00 Pulse Ox 99 01/16/22 08:00 O2 Del Method 01/16/22 08:00 O2 Flow Rate 3 01/11/22 15:32 BMI result Body Mass Index 21.3 Const: Other: Constitutional : Alert, interactive, frail and underweight Neck : Normal inspection, Supple Cardiovascular : RRR, no JVP, no lower extremity edema Respiratory : fair bilateral air entry, no crackles, wheezes or rhonchi Gastrointestinal: soft, lax, decreased bowel sounds, Non tender, ostomy in place , J-tube clean with no surrounding erythema Skin : Warm, Dry Neurological : Alert & oriented x3, No focal deficit , CN 2-12 within normal Objective Data Active Medications Acetaminophen (Acetaminophen 325 Mg Tablet) 650 mg PO Q6H PRN PRN Reason: Pain, Mild (Pain Scale 1-3) Last Admin: 01/16/22 04:01 Dose: 650 mg Documented By: REYNALDO Cyanocobalamin (Cyanocobalamin (Vitamin B-12) 1,000 Mcg Tablet) 1,000 mcg G- TUBE DAILY [facility] [place] Last Admin: 01/16/22 07:41 Dose: 1,000 mcg Documented By: DUC Docusate Sodium (Docusate Sodium 100 Mg Capsule) 100 mg PO BID [facility] Last Admin: 01/16/22 07:26 Dose: Not Given Documented By: DUC Non-Admin Reason: not G tube compatible Famotidine (Famotidine 20 Mg Tablet) 20 mg G-TUBE DAILY [facility] [place] Last Admin: 01/16/22 07:41 Dose: 20 mg Documented By: DUC Fludrocortisone Acetate (Fludrocortisone Acetate 0.1 Mg Tablet) 0.2 mg G-TUBE BID [facility] [place] Last Admin: 01/16/22 07:41 Dose: 0.2 mg Documented By: DUC Heparin Sodium (Porcine) (Heparin Sodium,Porcine 5,000 Unit/Ml Vial) 5,000 unit SUBCUT Q12H [facility] [place] Last Admin: 01/16/22 09:01 Dose: 5,000 unit Documented By: DUC Ceftriaxone Sodium 1 gm/ (Sodium Chloride) 50 mls @ 100 mls/hr IV Q24H [facility] [place] Last Infusion: 01/16/22 09:52 Dose: 0 mls/hr Documented By: DUC Lamotrigine (Lamotrigine 100 Mg Tablet) 200 mg G-TUBE DAILY [facility] [place] Last Admin: 01/16/22 07:40 Dose: 200 mg Documented By: DUC Melatonin (Melatonin 3 Mg Tablet) 6 mg G-TUBE BEDTIME [facility] Last Admin: 01/15/22 20:25 Dose: 6 mg Documented By: REYNALDO Mesalamine (Mesalamine 400 Mg Cap.Drtab.) 800 mg PO TID [facility] [place] Metronidazole (Metronidazole 500 Mg Tablet) 500 mg G-TUBE Q8H [facility] [place] Last Admin: 01/16/22 09:02 Dose: 500 mg Documented By: DUC Midodrine (Midodrine Hcl 10 Mg Tablet) 10 mg G-TUBE TID@0400,1300,1700 [facility] [place] Last Admin: 01/16/22 03:05 Dose: 10 mg Documented By: REYNALDO Olanzapine (Olanzapine 5 Mg Tablet) 5 mg G-TUBE Q4H PRN PRN Reason: Agitation Olanzapine (Olanzapine 7.5 Mg Tablet) 15 mg G-TUBE BEDTIME [facility] [place] Last Admin: 01/15/22 20:25 Dose: 15 mg Documented By: REYNALDO Ondansetron HCl (Ondansetron Hcl 4 Mg/2 Ml Vial) 4 mg IVPUSH Q8H PRN PRN Reason: Nausea and Vomiting Pharmacy Consult (Consult Rx Perform Med Rec) 1 each MISCELLANE ONCE PRN PRN Reason: Consult order Quetiapine Fumarate (Quetiapine Fumarate 25 Mg Tablet) 25 mg NG-TUBE BID [facility] [place] Last Admin: 01/16/22 07:41 Dose: 25 mg Documented By: DUC Sodium Chloride (0.9 % Sodium Chloride Flush 3 Ml Syringe) 3 ml IVFLUSH QSHIFT [facility] [place] Last Admin: 01/16/22 07:41 Dose: 3 ml Documented By: DUC Vancomycin HCl (Vancomycin Hcl Oral Solution 125 Mg/5 Ml Soln.Recon) 125 mg G- TUBE Q6H [facility] [place] Last Admin: 01/16/22 09:02 Dose: 125 mg Documented By: DUC Warfarin Sodium (Warfarin Sodium 6 Mg Tablet) 6 mg PO DAILY@1800 [facility] Last Admin: 01/15/22 17:32 Dose: 6 mg Documented By: DUC Labs CBC & Chem 7: 01/16/22 08:10 01/16/22 08:10 Labs: Laboratory Results - last 24 hr 01/15/22 01/15/22 01/16/22 15:56 15:56 08:10 MCV 95.7 MCH 30.7 MCHC 32.1 RDW 16.2 H Plt Count 182 MPV 10.1 Absolute Nucleated RBC 0.000 Nucleated RBC % (auto) 0.0 PT INR Anion Gap Estim Creat Clear Calc Estimated GFR Random Glucose Calcium Hepatitis A IgM Ab Nonreactive Hep Bs Antigen Negative Hep Bs Antibody NONREACTIVE Hep B Core Total Ab Nonreactive Hepatitis C Ab (EIA) Nonreactive HIV 1&2 Ab/P24 Ag 4thGn Nonreactive 01/16/22 01/16/22 08:10 08:10 MCV MCH MCHC RDW Plt Count MPV Absolute Nucleated RBC Nucleated RBC % (auto) PT 18.7 H INR 1.6 H Anion Gap 17 Estim Creat Clear Calc 11.9 Estimated GFR 12 Random Glucose 100 D Calcium 7.6 L Hepatitis A IgM Ab Hep Bs Antigen Hep Bs Antibody Hep B Core Total Ab Hepatitis C Ab (EIA) HIV 1&2 Ab/P24 Ag 4thGn Assessment and Plan (1) ESRD on dialysis: Status: Acute (2) Hypotension: Status: Acute (3) Abdominal mass: Status: Acute (4) Colitis: Status: Acute Plan 71-year-old male sent to the hospital from [facility] for hypotension, weakness, found to have colitis. colitis complicated by hypotension and hypokalemia positive cdif - possible cause of infection vs colonization continue vanco, rocephin, flagyl follow up path replace and monitor potassium history of esophogectomy/gastrectomy/Jtube ?due to boerhaves continue jtube feeds mentioned history of DM no obvious hyperglycemia, not on meds, will check a1c mood and psych disorder seroquel, zyprexa, lamictal abdominal mass Noted on CT scan adjacent to the colitis area Hematology-Oncology to follow-up after biopsy results Colonoscopy done, severe inflammation and ulcerated fall with injury mccrary seen at the area CT scan reported as possible mass, patchy erythema and ulceration GI input appreciated, could be secondary to IBD, C diff colitis Added Meselamin p.o. and enema depending on the biopsy results check TB, hep B,C, HIv serologies. hypotension chronic, fluctuate Continue midodrine to 10 mg t.i.d. ESRD on dialysis MWF schedule Nephrology following paroxysmal afib Coumadin, in sinus supratherapeutic INR resolved Restarted warfarin follow PT INR daily DVT prophylaxis: Coumadin Code status: full code reason for continued hospitalization:severe hypokalemia Quality Stroke Does the patient have a stroke diagnosis?: No VTE Prior VTE?: No VTE Risk Level:: Medical - moderate - high VTE Device Contraindication: Treatment Not Indicated VTE Drug Contraindication: N/A - Med Ordered
--- NOTE | 2022-01-16 10:22 | HO.POSTANES ---
Post Anesthesia Evaluation Post Anesthesia Evaluation Vital Signs: Vital Signs Temp Pulse Resp BP Pulse Ox O2 Del Method 01/16/22 08:00 97.2 F 56 20 118/55 L 99 Room Air 01/16/22 03:53 97.4 F 59 18 86/54 L 96 Room Air 01/16/22 00:04 90/60 01/15/22 23:04 96.9 F 68 17 97 Room Air Anesthesia: Monitored Mental Status: Awake Pain Control: Satisfactory Nausea/Vomiting: None Hydration: Adequate Anesthesia-Related Issues: No Anes. Related Issues
--- NOTE | 2022-01-16 10:58 | MHC.CLN ---
F/U PT IS SEVERELY MALNOURISHED SEE FULL NUTRITION ASSESSMENT DATED 01/14/22 PT REQUIRE TF FOR 100% NUTRITION SUPPORT PT WAS NPO FOR PROCEDURE YESTERDAY RECOMMEND RE-STARTING NEPRO AT MAX GOAL RATE 45ML/HR AND 240ML FREE WATER FLUSHES Q 8HRS TO PROVIDE 1944KCALS (31KCALS/KG), 87G PROTEIN (1.4G/KG), 1505ML TOTAL WATER FROM FORMULA AND FLUSHES (24ML/KG) START NEPRO AT 10ML/HR AND INCREASE BY 10ML UNTIL MAX GOAL IS ACHIEVED MONITOR TOLERANCE AND LYTES (NO RESIDUALS WITH J-TUBE)
[2022-01-16 11:04] LABS: Estimated Average Glucose 71 mg/dL; Hemoglobin A1c % 4.1 %
--- NOTE | 2022-01-16 11:10 | P.PNNPD_ITS ---
Subjective Subjective This patient was seen during dialysis. Interval history: cc: lethargy, weakness interval history:no complaints Physical Exam Vital Signs: Vital Signs: Last Vital Signs Temp 97.2 F 01/16/22 08:00 Pulse 56 01/16/22 08:00 Resp 20 01/16/22 08:00 BP 118/55 L 01/16/22 08:00 Pulse Ox 99 01/16/22 08:00 O2 Del Method 01/16/22 08:00 O2 Flow Rate 3 01/11/22 15:32 BMI result Body Mass Index 21.3 Const: Other: Constitutional : Alert, interactive, frail and underweight Neck : Normal inspection, Supple Cardiovascular : RRR, no JVP, no lower extremity edema Respiratory : fair bilateral air entry, no crackles, wheezes or rhonchi Gastrointestinal: soft, lax, decreased bowel sounds, Non tender, ostomy in place , J-tube clean with no surrounding erythema Skin : Warm, Dry Neurological : Alert & oriented x3, No focal deficit , CN 2-12 within normal General: cooperative, no acute distress and ill appearing Orientation/consciousness: oriented to person and patient oriented x3 Limi tations: No language barrier Eyes: General: appearance normal, both eyes and all related structures Resp: Effort & Inspection: normal respiratory effort Auscultation: diminished lung sounds Cardio: Palpation: no palpable S4 Rate: regular rate Rhythm: regular rhythm Heart sounds: no gallops and no murmurs GI: Other: J-tube in place Palpation (GI): Soft to palpation Auscultation: normal bowel sounds Skin: General skin exam: no rashes or lesions noted Neuro: General: oriented to person and patient oriented x3 Cognition (Neuro): normal cognition Motor exam (neuro): no asterixis Extrem: General: Yes normal to inspection and Yes no pedal edema Psych: Appearance: grossly normal and disheveled Assessment & Plan Assessment and plan (1) ESRD on dialysis: Status: Acute Assessment and Plan: ESRD HD on MWF No s/s of uremia Anemia Epogen as needed C.diff Management per medical team Chronic hypotension Midodrine 10 mg TID (2) Hypotension: Status: Acute (3) Abdominal mass: Status: Acute (4) Colitis: Status: Acute Plan 71-year-old male sent to the hospital from [place] [facility] for hypotension, weakness, found to have colitis. colitis complicated by hypotension and hypokalemia positive cdif - possible cause of infection vs colonization continue vanco, rocephin, flagyl follow up path replace and monitor potassium history of esophogectomy/gastrectomy/Jtube ?due to boerhaves continue jtube feeds mentioned history of DM no obvious hyperglycemia, not on meds, will check a1c mood and psych disorder seroquel, zyprexa, lamictal abdominal mass Noted on CT scan adjacent to the colitis area Hematology-Oncology to follow-up after biopsy results Colonoscopy done, severe inflammation and ulcerated fall with injury mccrary seen at the area CT scan reported as possible mass, patchy erythema and ulceration GI input appreciated, could be secondary to IBD, C diff colitis Added Meselamin p.o. and enema depending on the biopsy results check TB, hep B,C, HIv serologies. hypotension chronic, fluctuate Continue midodrine to 10 mg t.i.d. ESRD on dialysis MWF schedule Nephrology following paroxysmal afib Coumadin, in sinus supratherapeutic INR resolved Restarted warfarin follow PT INR daily DVT prophylaxis: Coumadin Code status: full code reason for continued hospitalization:severe hypokalemia Time Spent With Patient Time: Total time spent is greater than 50% in coordination of care (as documented) at patient's floor/unit and/or counseling patient: Procedures Date of Service Date of Service: 01/16/22
[2022-01-16 11:41] VITALS: BP 103/46; PULSE 63; RESP 20; TEMP 36; O2SAT 100
--- NOTE | 2022-01-16 13:30 | MHC.CM.PN ---
per rounds pt is felix hatch dc sat per
[2022-01-16] MEDS: Warfarin Sodium 6 MG TABLET PO (18:31)
[2022-01-16 19:23] VITALS: BP 97/65; PULSE 96; RESP 17; TEMP 36.3; O2SAT 97
[2022-01-16] MEDS: OLANZapine 7.5 MG TABLET 15 MG G-TUBE (22:26)
[2022-01-16] MEDS: Melatonin 3 MG TABLET 6 MG G-TUBE (22:26)
[2022-01-17] VITALS (7 sets, daily range): BP systolic 78–94; BP diastolic 52–64; PULSE 57–75; RESP 16–20; TEMP 36.2–38.1; O2SAT 97–99
[2022-01-17] MEDS: metroNIDAZOLE 500 MG TABLET G-TUBE ×3 (03:16→17:30)
[2022-01-17] MEDS: vancomycin HCL Oral Solution 125 MG/5 ML SOLN.RECON G-TUBE ×4 (03:16→20:24)
[2022-01-17] MEDS: Midodrine HCl 10 MG TABLET G-TUBE ×3 (03:16→17:29)
[2022-01-17 06:55] LABS: Hematocrit 30.8 % (42.0-52.0); Hemoglobin 9.8 g/dl (14.0-18.0); Mean Corpuscular HGB Conc 31.8 g/dl (31.0-36.0); Mean Corpuscular Hemoglobin 30.2 pg (27.0-33.0); Mean Corpuscular Volume 95.1 fL (80.0-98.0); Platelet Count 173 X10*3/uL (160-400); Red Blood Count 3.24 X10*6/uL (4.60-5.80); Red Cell Distribution Width 16.2 % (11.0-16.0); White Blood Count 5.2 X10*3/uL (4.8-10.8)
[2022-01-17 06:57] LABS: INTERNATIONAL NORM RATIO 1.5 (0.9-1.1); Prothrombin Time 16.9 SEC (10.0-13.1)
[2022-01-17 07:22] LABS: Anion Gap 12 (12-20); Blood Urea Nitrogen 14 mg/dL (9-16); Calcium 7.9 mg/dL (8.4-10.2); Carbon Dioxide 28 mmol/L (22-29); Chloride 102 mmol/L (96-108); Creatinine Clr Calc Pharmacy 18.4; Estimated Glomerular Filt Rate 20; Glucose Fasting 100 mg/dL (60-99); Magnesium 1.8 mg/dL (1.6-2.6); Potassium 3.3 mmol/L (3.3-5.1); Sodium 139 mmol/L (135-145)
[2022-01-17] MEDS: QUEtiapine Fumarate 25 MG TABLET NG-TUBE ×2 (08:15→20:24)
[2022-01-17] MEDS: Cyanocobalamin (Vitamin B-12) 1,000 MCG TABLET 1000 MCG G-TUBE (08:15)
[2022-01-17] MEDS: Famotidine 20 MG TABLET G-TUBE (08:15)
[2022-01-17] MEDS: Fludrocortisone Acetate 0.1 MG TABLET 0.2 MG G-TUBE ×2 (08:15→20:24)
[2022-01-17] MEDS: lamoTRIgine 100 MG TABLET 200 MG G-TUBE (08:16)
[2022-01-17] MEDS: cefTRIAXone sodium 1 GM in 0.9 % Sodium Chloride 50 ML IV (08:16)
[2022-01-17] MEDS: 0.9 % Sodium Chloride Flush 3 ML SYRINGE IVFLUSH ×3 (08:18→20:24)
--- NOTE | 2022-01-17 11:22 | P.PNNP_ITS ---
Subjective Subjective Date of Service: 01/17/22 Interval history: cc: lethargy, weakness interval history:no complaints Physical Exam Vital Signs: Vital Signs: Last Vital Signs Temp 100.5 F H 01/17/22 11:14 Pulse 64 01/17/22 11:14 Resp 19 01/17/22 11:14 BP 80/52 L 01/17/22 11:14 Pulse Ox 98 01/17/22 11:14 O2 Del Method 01/17/22 11:14 O2 Flow Rate 3 01/11/22 15:32 BMI result Body Mass Index 21.3 Const: Other: Constitutional : Alert, interactive, frail and underweight Neck : Normal inspection, Supple Cardiovascular : RRR, no JVP, no lower extremity edema Respiratory : fair bilateral air entry, no crackles, wheezes or rhonchi Gastrointestinal: soft, lax, decreased bowel sounds, Non tender, ostomy in place , J-tube clean with no surrounding erythema Skin : Warm, Dry Neurological : Alert & oriented x3, No focal deficit , CN 2-12 within normal General: cooperative, no acute distress and ill appearing Orientation/con sciousness: oriented to person and patient oriented x3 Limitations: No language barrier Eyes: General: appearance normal, both eyes and all related structures Resp: Effort & Inspection: normal respiratory effort Auscultation: diminished lung sounds Cardio: Palpation: no palpable S4 Rate: regular rate Rhythm: regular rhythm Heart sounds: no gallops and no murmurs GI: Other: J-tube in place Palpation (GI): Soft to palpation Auscultation: normal bowel sounds Skin: General skin exam: no rashes or lesions noted Neuro: General: oriented to person and patient oriented x3 Cognition (Neuro): normal cognition Motor exam (neuro): no asterixis Extrem: General: Yes normal to inspection and Yes no pedal edema Psych: Appearance: grossly normal and disheveled Objective Data Labs CBC & Chem 7: 01/17/22 06:18 01/17/22 06:18 Labs: Laboratory Results - last 24 hr 01/17/22 01/17/22 01/17/22 06:18 06:18 06:18 WBC 5.2 RBC 3.24 L Hgb 9.8 L Hct 30.8 L MCV 95.1 MCH 30.2 MCHC 31.8 RDW 16.2 H Plt Count 173 MPV 10.0 Absolute Nucleated RBC 0.000 Nucleated RBC % (auto) 0.0 PT 16.9 H INR 1.5 H Sodium 139 Potassium 3.3 D Chloride 102 Carbon Dioxide 28 Anion Gap 12 BUN 14 D Creatinine 3.12 H Estim Creat Clear Calc 18.4 Estimated GFR 20 Fasting Glucose 100 H Calcium 7.9 L Magnesium 1.8 Microbiology Microbiology Results: Microbiology 01/11/22 16:16 Blood - Venous Blood Culture - Final No growth after 5 days. 01/11/22 15:04 Blood - Venous Blood Culture - Final No growth after 5 days. Procedures Date of Service Date of Service: 01/17/22 Assessment & Plan Assessment and plan (1) ESRD on dialysis: Status: Acute Assessment and Plan: ESRD HD on MWF TREATMENT YESTERDAY WELL TOLERATED FLUID REMOVAL NEXT RX WEDNESDAY No s/s of uremia Anemia Epogen as needed C.diff Management per medical team Chronic hypotension Midodrine 10 mg TID (2) Hypotension: Status: Acute (3) Abdominal mass: Status: Acute (4) Colitis: Status: Acute Plan 71-year-old male sent to the hospital from [place] [facility] for hypotension, weakness, found to have colitis. colitis complicated by hypotension and hypokalemia positive cdif - possible cause of infection vs colonization continue vanco, rocephin, flagyl follow up path replace and monitor potassium history of esophogectomy/gastrectomy/Jtube ?due to boerhaves continue jtube feeds mentioned history of DM no obvious hyperglycemia, not on meds, will check a1c mood and psych disorder seroquel, zyprexa, lamictal abdominal mass Noted on CT scan adjacent to the colitis area Hematology-Oncology to follow-up after biopsy results Colonoscopy done, severe inflammation and ulcerated fall with injury mccrary seen at the area CT scan reported as possible mass, patchy erythema and ulceration GI input appreciated, could be secondary to IBD, C diff colitis Added Meselamin p.o. and enema depending on the biopsy results check TB, hep B,C, HIv serologies. hypotension chronic, fluctuate Continue midodrine to 10 mg t.i.d. ESRD on dialysis MWF schedule Nephrology following paroxysmal afib Coumadin, in sinus supratherapeutic INR resolved Restarted warfarin follow PT INR daily DVT prophylaxis: Coumadin Code status: full code reason for continued hospitalization:severe hypokalemia Time Spent With Patient Time: Total time spent is greater than 50% in coordination of care (as documented) at patient's floor/unit and/or counseling patient: Progress Note: Quality Stroke Does the patient have a stroke diagnosis?: No
--- NOTE | 2022-01-17 11:54 | HO.PM.IMPN ---
Subjective Subjective Date of Service: 01/17/22 Interval History: cc: diarrhea interval history:low grade fevers Cardiovascular Cardiovascular: Reports no additional cardiovascular complaints Respiratory Respiratory: Reports no additional respiratory complaints Physical Exam Vital Signs: Vital Signs: Last Vital Signs Temp 100.5 F H 01/17/22 11:14 Pulse 64 01/17/22 11:14 Resp 19 01/17/22 11:14 BP 80/52 L 01/17/22 11:14 Pulse Ox 98 01/17/22 11:14 O2 Del Method 01/17/22 11:14 O2 Flow Rate 3 01/11/22 15:32 BMI result Body Mass Index 21.3 Const: Other: Constitutional : Alert, interactive, frail and underweight Neck : Normal inspection, Supple Cardiovascular : RRR, no JVP, no lower extremity edema Respiratory : fair bilateral air entry, no crackles, wheezes or rhonchi Gastrointestinal: soft, lax, decreased bowel sounds, Non tender, ostomy in place , J-tube clean with no surrounding erythema Skin : Warm, Dry Neurological : Alert & oriented x3, No focal deficit , CN 2-12 within normal General: cooperative, no acute distress and ill appearing Orientation/consciousness: oriented to person and patient oriented x3 Limitations: No language barrier Eyes: General: appearance normal, both eyes and all related structures Resp: Effort & Inspection: normal respiratory effort Auscultation: diminished lung sounds Cardio: Palpation: no palpable S4 Rate: regular rate Rhythm: regular rhythm Heart sounds: no gallops and no murmurs GI: Other: J-tube in place Palpation (GI): Soft to palpation Auscultation: normal bowel sounds Skin: General skin exam: no rashes or lesions noted Neuro: General: oriented to person and patient oriented x3 Cognition (Neuro): normal cognition Motor exam (neuro): no asterixis Extrem: General: Yes normal to inspection and Yes no pedal edema Psych: Appearance: grossly normal and disheveled Objective Data Active Medications Acetaminophen (Acetaminophen 325 Mg Tablet) 650 mg PO Q6H PRN PRN Reason: Pain, Mild (Pain Scale 1-3) Last Admin: 01/16/22 04:01 Dose: 650 mg Documented By: REYNALDO Cyanocobalamin (Cyanocobalamin (Vitamin B-12) 1,000 Mcg Tablet) 1,000 mcg G-TUBE DAILY KACEY Last Admin: 01/17/22 08:15 Dose: 1,000 mcg Documented By: JADYN Docusate Sodium (Docusate Sodium 100 Mg Capsule) 100 mg PO BID [facility] Last Admin: 01/17/22 09:37 Dose: Not Given Documented By: JADYN Non-Admin Reason: med not compatible with Gtube. Famotidine (Famotidine 20 Mg Tablet) 20 mg G-TUBE DAILY [facility] Last Admin: 01/17/22 08:15 Dose: 20 mg Documented By: JADYN Fludrocortisone Acetate (Fludrocortisone Acetate 0.1 Mg Tablet) 0.2 mg G-TUBE BID [facility] Last Admin: 01/17/22 08:15 Dose: 0.2 mg Documented By: JADYN Ceftriaxone Sodium 1 gm/ (Sodium Chloride) 50 mls @ 100 mls/hr IV Q24H [facility] Last Infusion: 01/17/22 09:29 Dose: 0 mls/hr Documented By: JADYN Lamotrigine (Lamotrigine 100 Mg Tablet) 200 mg G-TUBE DAILY [facility] Last Admin: 01/17/22 08:16 Dose: 200 mg Documented By: JADYN Melatonin (Melatonin 3 Mg Tablet) 6 mg G-TUBE BEDTIME [facility] Last Admin: 01/16/22 22:26 Dose: 6 mg Documented By: JEAN Mesalamine (Mesalamine 400 Mg Cap.Drtab.) 800 mg PO TID [facility] Metronidazole (Metronidazole 500 Mg Tablet) 500 mg G-TUBE Q8H [facility] Last Admin: 01/17/22 10:42 Dose: 500 mg Documented By: JADYN Midodrine (Midodrine Hcl 10 Mg Tablet) 10 mg G-TUBE TID@0400,1300,1700 [facility] Last Admin: 01/17/22 03:16 Dose: 10 mg Documented By: NIA Olanzapine (Olanzapine 5 Mg Tablet) 5 mg G-TUBE Q4H PRN PRN Reason: Agitation Olanzapine (Olanzapine 7.5 Mg Tablet) 15 mg G-TUBE BEDTIME [facility] Last Admin: 01/16/22 22:26 Dose: 15 mg Documented By: EJAN Ondansetron HCl (Ondansetron Hcl 4 Mg/2 Ml Vial) 4 mg IVPUSH Q8H PRN PRN Reason: Nausea and Vomiting Pharmacy Consult (Consult Rx Perform Med Rec) 1 each MISCELLANE ONCE PRN PRN Reason: Consult order Quetiapine Fumarate (Quetiapine Fumarate 25 Mg Tablet) 25 mg NG-TUBE BID [facility] Last Admin: 01/17/22 08:15 Dose: 25 mg Documented By: JADYN Sodium Chloride (0.9 % Sodium Chloride Flush 3 Ml Syringe) 3 ml IVFLUSH QSHIFT [facility] Last Admin: 01/17/22 08:18 Dose: 3 ml Documented By: JADYN Vancomycin HCl (Vancomycin Hcl Oral Solution 125 Mg/5 Ml Soln.Recon) 125 mg G-TUBE Q6H [facility] Last Admin: 01/17/22 10:43 Dose: 125 mg Documented By: JADYN Warfarin Sodium (Warfarin Sodium 6 Mg Tablet) 6 mg PO DAILY@1800 [facility] Last Admin: 01/16/22 18:31 Dose: 6 mg Documented By: DUC Labs CBC & Chem 7: 01/17/22 06:18 01/17/22 06:18 Labs: Laboratory Results - last 24 hr 01/17/22 01/17/22 01/17/22 06:18 06:18 06:18 MCV 95.1 MCH 30.2 MCHC 31.8 RDW 16.2 H Plt Count 173 MPV 10.0 Absolute Nucleated RBC 0.000 Nucleated RBC % (auto) 0.0 PT 16.9 H INR 1.5 H Anion Gap 12 Estim Creat Clear Calc 18.4 Estimated GFR 20 Fasting Glucose 100 H Calcium 7.9 L Magnesium 1.8 Microbiology Microbiology Results: Microbiology 01/11/22 16:16 Blood Culture - Final Blood - Venous No growth after 5 days. 01/11/22 15:04 Blood Culture - Final Blood - Venous No growth after 5 days. Assessment and Plan (1) ESRD on dialysis: Status: Acute (2) Hypotension: Status: Acute (3) Abdominal mass: Status: Acute (4) Colitis: Status: Acute Plan 71-year-old male sent to the hospital from [place] for hypotension, weakness, found to have colitis., now with low grade fevers low grade fevers no evidence of sepsis (low bp chronic not due to sepsis) check cxr, cultures colitis complicated by hypotension and hypokalemia positive cdif - possible cause of infection vs colonization continue vanco, rocephin, flagyl follow up path replace and monitor potassium history of esophogectomy/gastrectomy/Jtube ?due to boerhaves continue jtube feeds mentioned history of DM no obvious hyperglycemia, not on meds, will check a1c mood and psych disorder seroquel, zyprexa, lamictal abdominal mass Noted on CT scan adjacent to the colitis area Hematology-Oncology to follow-up after biopsy results Colonoscopy done, severe inflammation and ulcerated fall with injury mccrary seen at the area CT scan reported as possible mass, patchy erythema and ulceration GI input appreciated, could be secondary to IBD, C diff colitis Added Meselamin p.o. and enema depending on the biopsy results check TB, hep B,C, HIv serologies. hypotension chronic, fluctuate Continue midodrine to 10 mg t.i.d. ESRD on dialysis MWF schedule Nephrology following paroxysmal afib Coumadin, in sinus supratherapeutic INR resolved Restarted warfarin follow PT INR daily DVT prophylaxis: Coumadin Code status: full code reason for continued hospitalization: low grade fevers Quality Stroke Does the patient have a stroke diagnosis?: No VTE Prior VTE?: No VTE Risk Level:: Medical - moderate - high VTE Device Contraindication: Treatment Not Indicated VTE Drug Contraindication: N/A - Med Ordered
[2022-01-17] MEDS: Acetaminophen 325 MG TABLET 650 MG PO (12:35)
[2022-01-17] MEDS: Warfarin Sodium 6 MG TABLET PO (17:33)
[2022-01-17] MEDS: OLANZapine 7.5 MG TABLET 15 MG G-TUBE (20:24)
[2022-01-17] MEDS: Melatonin 3 MG TABLET 6 MG G-TUBE (20:24)
[2022-01-18] VITALS: BP 80/48; PULSE 77; RESP 16; TEMP 37.3; O2SAT 98
[2022-01-18 03:31] VITALS: BP 76/54; PULSE 66; RESP 16; TEMP 37.1; O2SAT 97
[2022-01-18] MEDS: vancomycin HCL Oral Solution 125 MG/5 ML SOLN.RECON G-TUBE ×4 (03:46→21:35)
[2022-01-18] MEDS: metroNIDAZOLE 500 MG TABLET G-TUBE (03:46)
[2022-01-18] MEDS: Midodrine HCl 10 MG TABLET G-TUBE ×3 (03:46→17:20)
[2022-01-18 06:43] LABS: Hematocrit 30.1 % (42.0-52.0); Hemoglobin 9.5 g/dl (14.0-18.0); Mean Corpuscular HGB Conc 31.6 g/dl (31.0-36.0); Mean Corpuscular Hemoglobin 30.4 pg (27.0-33.0); Mean Corpuscular Volume 96.2 fL (80.0-98.0); Platelet Count 185 X10*3/uL (160-400); Red Blood Count 3.13 X10*6/uL (4.60-5.80); Red Cell Distribution Width 16.4 % (11.0-16.0)
[2022-01-18 07:08] LABS: Anion Gap 13 (12-20); Blood Urea Nitrogen 24 mg/dL (9-16); Calcium 7.8 mg/dL (8.4-10.2); Carbon Dioxide 26 mmol/L (22-29); Chloride 100 mmol/L (96-108); Glucose Fasting 85 mg/dL (60-99); Potassium 3.2 mmol/L (3.3-5.1); Sodium 136 mmol/L (135-145)
[2022-01-18 07:12] LABS: Creatinine Clr Calc Pharmacy 13.4; Estimated Glomerular Filt Rate 14
[2022-01-18] MEDS: 0.9 % Sodium Chloride Flush 3 ML SYRINGE IVFLUSH ×3 (07:36→21:36)
[2022-01-18] MEDS: cefTRIAXone sodium 1 GM in 0.9 % Sodium Chloride 50 ML IV (07:36)
[2022-01-18 08:00] VITALS: BP 105/70; PULSE 59; RESP 16; TEMP 37.9; O2SAT 96
[2022-01-18 09:14] LABS: TS Panel A 0
[2022-01-18 09:15] LABS: TS Negative Control Passed; TS Panel B 0
[2022-01-18 09:17] LABS: TS Positive Control Passed
[2022-01-18 09:19] LABS: TSpotTB Negative
[2022-01-18 09:26] LABS: INTERNATIONAL NORM RATIO 1.5 (0.9-1.1); Prothrombin Time 16.9 SEC (10.0-13.1)
[2022-01-18] MEDS: Acetaminophen 325 MG TABLET 650 MG PO (09:28)
[2022-01-18] MEDS: Cyanocobalamin (Vitamin B-12) 1,000 MCG TABLET 1000 MCG G-TUBE (09:29)
[2022-01-18] MEDS: Fludrocortisone Acetate 0.1 MG TABLET 0.2 MG G-TUBE ×2 (09:30→21:35)
[2022-01-18] MEDS: lamoTRIgine 100 MG TABLET 200 MG G-TUBE (09:31)
[2022-01-18] MEDS: QUEtiapine Fumarate 25 MG TABLET NG-TUBE ×2 (09:31→21:35)
[2022-01-18] MEDS: Famotidine 20 MG TABLET G-TUBE (09:56)
--- NOTE | 2022-01-18 09:57 | HO.PM.IMPN ---
Subjective Subjective Date of Service: 01/18/22 Interval History: cc: diarrhea interval history:low grade fevers Cardiovascular Cardiovascular: Reports no additional cardiovascular complaints Respiratory Respiratory: Reports no additional respiratory complaints Physical Exam Vital Signs: Vital Signs: Last Vital Signs Temp 100.2 F 01/18/22 08:00 Pulse 59 01/18/22 08:00 Resp 16 01/18/22 08:00 BP 105/70 01/18/22 08:00 Pulse Ox 96 01/18/22 08:00 O2 Del Method 01/18/22 08:00 O2 Flow Rate 3 01/11/22 15:32 BMI result Body Mass Index 21.3 Const: Other: Constitutional : Alert, interactive, frail and underweight Neck : Normal inspection, Supple Cardiovascular : RRR, no JVP, no lower extremity edema Respiratory : fair bilateral air entry, no crackles, wheezes or rhonchi Gastrointestinal: soft, lax, decreased bowel sounds, Non tender, ostomy in place , J-tube clean with no surrounding erythema Skin : Warm, Dry Neurological : Alert & oriented x3, No focal deficit , CN 2-12 within normal General: cooperative, no acute distress and ill appearing Orientation/consciousness: oriented to person and patient oriented x3 Limitations: No language barrier Eyes: General: appearance normal, both eyes and all related structures Resp: Effort & Inspection: normal respiratory effort Auscultation: diminished lung sounds Cardio: Palpation: no palpable S4 Rate: regular rate Rhythm: regular rhythm Heart sounds: no gallops and no murmurs GI: Other: J-tube in place Palpation (GI): Soft to palpation Auscultation: normal bowel sounds Skin: General skin exam: no rashes or lesions noted Neuro: General: oriented to person and patient oriented x3 Cognition (Neuro): normal cognition Motor exam (neuro): no asterixis Extrem: General: Yes normal to inspection and Yes no pedal edema Psych: Appearance: grossly normal and disheveled Objective Data Active Medications Acetaminophen (Acetaminophen 325 Mg Tablet) 650 mg PO Q6H PRN PRN Reason: Pain, Mild (Pain Scale 1-3) Last Admin: 01/18/22 09:28 Dose: 650 mg Documented By: JADYN Cyanocobalamin (Cyanocobalamin (Vitamin B-12) 1,000 Mcg Tablet) 1,000 mcg G-TUBE DAILY [facility]ACE[facility] Last Admin: 01/18/22 09:29 Dose: 1,000 mcg Documented By: JADYN Docusate Sodium (Docusate Sodium 100 Mg Capsule) 100 mg PO BID [facility] Last Admin: 01/18/22 09:53 Dose: Not Given Documented By: JADYN Non-Admin Reason: not gtube compatible Famotidine (Famotidine 20 Mg Tablet) 20 mg G-TUBE DAILY [facility] Last Admin: 01/18/22 09:56 Dose: 20 mg Documented By: JADYN Fludrocortisone Acetate (Fludrocortisone Acetate 0.1 Mg Tablet) 0.2 mg G-TUBE BID [facility] Last Admin: 01/18/22 09:30 Dose: 0.2 mg Documented By: JADYN Ceftriaxone Sodium 1 gm/ (Sodium Chloride) 50 mls @ 100 mls/hr IV Q24H [facility] Last Infusion: 01/18/22 08:36 Dose: 0 mls/hr Documented By: JADYN Lamotrigine (Lamotrigine 100 Mg Tablet) 200 mg G-TUBE DAILY [facility] Last Admin: 01/18/22 09:31 Dose: 200 mg Documented By: JADYN Melatonin (Melatonin 3 Mg Tablet) 6 mg G-TUBE BEDTIME [facility] Last Admin: 01/17/22 20:24 Dose: 6 mg Documented By: MARQUISE Mesalamine (Mesalamine 400 Mg Cap.Drtab.) 800 mg PO TID [facility] Metronidazole (Metronidazole 500 Mg Tablet) 500 mg G-TUBE Q8H [facility] Last Admin: 01/18/22 03:46 Dose: 500 mg Documented By: REYNALDO Midodrine (Midodrine Hcl 10 Mg Tablet) 10 mg G-TUBE TID@0400,1300,1700 [facility] Last Admin: 01/18/22 03:46 Dose: 10 mg Documented By: REYNALDO Olanzapine (Olanzapine 5 Mg Tablet) 5 mg G-TUBE Q4H PRN PRN Reason: Agitation Olanzapine (Olanzapine 7.5 Mg Tablet) 15 mg G-TUBE BEDTIME [facility] Last Admin: 01/17/22 20:24 Dose: 15 mg Documented By: MARQUISE Ondansetron HCl (Ondansetron Hcl 4 Mg/2 Ml Vial) 4 mg IVPUSH Q8H PRN PRN Reason: Nausea and Vomiting Pharmacy Consult (Consult Rx Perform Med Rec) 1 each MISCELLANE ONCE PRN PRN Reason: Consult order Quetiapine Fumarate (Quetiapine Fumarate 25 Mg Tablet) 25 mg NG-TUBE BID [facility] Last Admin: 01/18/22 09:31 Dose: 25 mg Documented By: JADYN Sodium Chloride (0.9 % Sodium Chloride Flush 3 Ml Syringe) 3 ml IVFLUSH QSHIFT [facility] Last Admin: 01/18/22 07:36 Dose: 3 ml Documented By: JADYN Vancomycin HCl (Vancomycin Hcl Oral Solution 125 Mg/5 Ml Soln.Recon) 125 mg G-TUBE Q6H [facility] Last Admin: 01/18/22 09:29 Dose: 125 mg Documented By: JADYN Warfarin Sodium (Warfarin Sodium 6 Mg Tablet) 6 mg PO DAILY@1800 [facility] Last Admin: 01/17/22 17:33 Dose: 6 mg Documented By: JADYN Labs CBC & Chem 7: 01/18/22 06:19 01/18/22 06:19 Labs: Laboratory Results - last 24 hr 01/15/22 01/18/22 01/18/22 15:56 06:19 06:19 MCV 96.2 MCH 30.4 MCHC 31.6 RDW 16.4 H Plt Count 185 MPV 10.0 Absolute Nucleated RBC 0.000 Nucleated RBC % (auto) 0.0 PT INR Anion Gap 13 Estim Creat Clear Calc 13.4 Estimated GFR 14 Fasting Glucose 85 Calcium 7.8 L TB Test (T-Spot) Com Negative TB Test Nil Control Passed TB Test Panel A 0 TB Test Panel B 0 TB Test Positive Cntrl Passed 01/18/22 08:44 MCV MCH MCHC RDW Plt Count MPV Absolute Nucleated RBC Nucleated RBC % (auto) PT 16.9 H INR 1.5 H Anion Gap Estim Creat Clear Calc Estimated GFR Fasting Glucose Calcium TB Test (T-Spot) Com TB Test Nil Control TB Test Panel A TB Test Panel B TB Test Positive Cntrl Assessment and Plan (1) ESRD on dialysis: Status: Acute (2) Hypotension: Status: Acute (3) Abdominal mass: Status: Acute (4) Colitis: Status: Acute Plan 71-year-old male sent to the hospital from [facility] for hypotension, weakness, found to have colitis., now with low grade fevers low grade fevers no evidence of sepsis (low bp chronic not due to sepsis) CXR with bilateral lower lobe opacities, possible aspiration pneumonitis vs atelectasis also possible drug fevers will hold ceftriaxone and flagyl for now and monitor colitis complicated by hypotension and hypokalemia positive cdif - possible cause of infection vs colonization continue vanco po follow up path replace and monitor potassium history of esophogectomy/gastrectomy/Jtube ?due to boerhaves continue jtube feeds mentioned history of DM no obvious hyperglycemia, not on meds, a1c 4.1 either remote history or mentioned in error mood and psych disorder seroquel, zyprexa, lamictal abdominal mass Noted on CT scan adjacent to the colitis area Hematology-Oncology to follow-up after biopsy results Colonoscopy done, severe inflammation and ulcerated fall with injury mccrary seen at the area CT scan reported as possible mass, patchy erythema and ulceration GI input appreciated, could be secondary to IBD, C diff colitis Added Meselamin p.o. and enema depending on the biopsy results negative TB, hep B,C, HIv serologies. hypotension chronic, fluctuate Continue midodrine to 10 mg t.i.d. ESRD on dialysis MWF schedule Nephrology following paroxysmal afib Coumadin, in sinus supratherapeutic INR resolved Restarted warfarin follow PT INR daily DVT prophylaxis: Coumadin Code status: full code reason for continued hospitalization: low grade fevers Quality Stroke Does the patient have a stroke diagnosis?: No VTE Prior VTE?: No VTE Risk Level:: Medical - moderate - high VTE Device Contraindication: Treatment Not Indicated VTE Drug Contraindication: N/A - Med Ordered
[2022-01-18] MEDS: Potassium Chloride Packet 20 MEQ PACKET 40 MEQ G-TUBE (10:06)
[2022-01-18 11:24] VITALS: BP 102/68; PULSE 61; RESP 18; TEMP 37.3; O2SAT 98
[2022-01-18 16:07] VITALS: BP 110/72; PULSE 71; RESP 18; TEMP 37.2; O2SAT 99
--- NOTE | 2022-01-18 19:44 | P.PNNP_ITS ---
Subjective Subjective Date of Service: 01/18/22 Interval history: cc: diarrhea interval history:low grade fevers Physical Exam Vital Signs: Vital Signs: Last Vital Signs Temp 99.0 F 01/18/22 16:07 Pulse 71 01/18/22 16:07 Resp 18 01/18/22 16:07 BP 110/72 01/18/22 16:07 Pulse Ox 99 01/18/22 16:07 O2 Del Method 01/18/22 16:07 O2 Flow Rate 3 01/11/22 15:32 BMI result Body Mass Index 21.3 Const: Other: Constitutional : Alert, interactive, frail and underweight Neck : Normal inspection, Supple Cardiovascular : RRR, no JVP, no lower extremity edema Respiratory : fair bilateral air entry, no crackles, wheezes or rhonchi Gastrointestinal: soft, lax, decreased bowel sounds, Non tender, ostomy in place , J-tube clean with no surrounding erythema Skin : Warm, Dry Neurological : Alert & oriented x3, No focal deficit , CN 2-12 within normal General: cooperative, no acute distress and ill appearing Orientation/consciousness: oriented to person and patient oriented x3 Limitations: No language barrier Eyes: General: appearance normal, both eyes and all related structures Resp: Effort & Inspection: normal respiratory effort Auscultation: diminis hed lung sounds Cardio: Palpation: no palpable S4 Rate: regular rate Rhythm: regular rhythm Heart sounds: no gallops and no murmurs GI: Other: J-tube in place Palpation (GI): Soft to palpation Auscultation: normal bowel sounds Skin: General skin exam: no rashes or lesions noted Neuro: General: oriented to person and patient oriented x3 Cognition (Neuro): normal cognition Motor exam (neuro): no asterixis Extrem: General: Yes normal to inspection and Yes no pedal edema Psych: Appearance: grossly normal and disheveled Objective Data Labs CBC & Chem 7: 01/18/22 06:19 01/18/22 06:19 Labs: Laboratory Results - last 24 hr 01/15/22 01/18/22 01/18/22 15:56 06:19 06:19 WBC 6.0 RBC 3.13 L Hgb 9.5 L Hct 30.1 L MCV 96.2 MCH 30.4 MCHC 31.6 RDW 16.4 H Plt Count 185 MPV 10.0 Absolute Nucleated RBC 0.000 Nucleated RBC % (auto) 0.0 PT INR Sodium 136 Potassium 3.2 L Chloride 100 Carbon Dioxide 26 Anion Gap 13 BUN 24 H D Creatinine 4.26 H* Estim Creat Clear Calc 13.4 Estimated GFR 14 Fasting Glucose 85 Calcium 7.8 L TB Test (T-Spot) Com Negative TB Test Nil Control Passed TB Test Panel A 0 TB Test Panel B 0 TB Test Positive Cntrl Passed 01/18/22 08:44 WBC RBC Hgb Hct MCV MCH MCHC RDW Plt Count MPV Absolute Nucleated RBC Nucleated RBC % (auto) PT 16.9 H INR 1.5 H Sodium Potassium Chloride Carbon Dioxide Anion Gap BUN Creatinine Estim Creat Clear Calc Estimated GFR Fasting Glucose Calcium TB Test (T-Spot) Com TB Test Nil Control TB Test Panel A TB Test Panel B TB Test Positive Cntrl Microbiology Microbiology Results: Microbiology 01/17/22 12:09 Blood - Venous Blood Culture - Preliminary No growth after 24 hours. 01/17/22 12:09 Blood - Venous Blood Culture - Preliminary No growth after 24 hours. 01/11/22 16:16 Blood - Venous Blood Culture - Final No growth after 5 days. 01/11/22 15:04 Blood - Venous Blood Culture - Final No growth after 5 days. Procedures Date of Service Date of Service: 01/18/22 Assessment & Plan Assessment and plan (1) ESRD on dialysis: Status: Acute (2) Hypotension: Status: Acute (3) Abdominal mass: Status: Acute (4) Colitis: Status: Acute Plan 71-year-old male sent to the hospital from [facility] for hypotension, weakness, found to have colitis., now with low grade fevers low grade fevers no evidence of sepsis (low bp chronic not due to sepsis) CXR with bilateral lower lobe opacities, possible aspiration pneumonitis vs atelectasis also possible drug fevers will hold ceftriaxone and flagyl for now and monitor colitis complicated by hypotension and hypokalemia positive cdif - possible cause of infection vs colonization continue vanco po follow up path replace and monitor potassium history of esophogectomy/gastrectomy/Jtube continue jtube feeds mentioned history of DM no obvious hyperglycemia, not on meds, a1c 4.1 either remote history or mentioned in error mood and psych disorder seroquel, zyprexa, lamictal abdominal mass Noted on CT scan adjacent to the colitis area Hematology-Oncology to follow-up after biopsy results Colonoscopy done, severe inflammation and ulcerated fall with injury mccrary seen at the area CT scan reported as possible mass, patchy erythema and ulceration GI input appreciated, could be secondary to IBD, C diff colitis Added Meselamin p.o. and enema depending on the biopsy results negative TB, hep B,C, HIv serologies. hypotension chronic, fluctuate Continue midodrine to 10 mg t.i.d. ESRD on dialysis MWF schedule next HD in am paroxysmal afib Coumadin, in sinus supratherapeutic INR resolved Restarted warfarin follow PT INR daily await colon bx DVT prophylaxis: Coumadin Code status: full code Time Spent With Patient Time: Total time spent is greater than 50% in coordination of care (as documented) at patient's floor/unit and/or counseling patient: Progress Note: Quality Stroke Does the patient have a stroke diagnosis?: No
[2022-01-18 20:00] VITALS: BP 93/62; PULSE 62; RESP 16; TEMP 36.9; O2SAT 96
[2022-01-18] MEDS: OLANZapine 7.5 MG TABLET 15 MG G-TUBE (21:35)
[2022-01-18] MEDS: Melatonin 3 MG TABLET 6 MG G-TUBE (21:35)
[2022-01-19] VITALS: BP 70/49; PULSE 79; RESP 16; TEMP 36.2; O2SAT 93
[2022-01-19 01:29] VITALS: BP 92/52; PULSE 72
[2022-01-19 03:56] VITALS: BP 86/54; PULSE 58; RESP 16; TEMP 36.3; O2SAT 94
[2022-01-19] MEDS: vancomycin HCL Oral Solution 125 MG/5 ML SOLN.RECON G-TUBE ×2 (04:11→10:14)
[2022-01-19] MEDS: Midodrine HCl 10 MG TABLET G-TUBE (04:12)
[2022-01-19 06:39] LABS: INTERNATIONAL NORM RATIO 1.9 (0.9-1.1); Prothrombin Time 22.4 SEC (10.0-13.1)
[2022-01-19] MEDS: 0.9 % Sodium Chloride Flush 3 ML SYRINGE IVFLUSH (09:50)
[2022-01-19] MEDS: Fludrocortisone Acetate 0.1 MG TABLET 0.2 MG G-TUBE (09:51)
[2022-01-19] MEDS: Cyanocobalamin (Vitamin B-12) 1,000 MCG TABLET 1000 MCG G-TUBE (09:52)
[2022-01-19] MEDS: Docusate Sodium 100 MG CAPSULE PO (09:52)
[2022-01-19] MEDS: lamoTRIgine 100 MG TABLET 200 MG G-TUBE (09:52)
[2022-01-19] MEDS: QUEtiapine Fumarate 25 MG TABLET NG-TUBE (09:52)
[2022-01-19] MEDS: Famotidine 20 MG TABLET G-TUBE (09:52)
--- NOTE | 2022-01-19 11:05 | P.DS_ITS ---
DS: Providers Provider Date of Service: 01/19/22 Date of admission: 01/11/22 21:44 Primary care physician: Unknown Physician Consults: 01/12/22 06:59 Consult to Nephrology Routine Consulting Provider: [facility] Reason for consultation: dialysis Has provider been notified: No 01/12/22 07:03 Consult to Hematology / Oncology Routine Consulting Provider: Latrice Valero Reason for consultation: gi mass Has provider been notified: No 01/13/22 10:40 Consult to Gastroenterology Routine Consulting Provider: Pavan Crain Reason for consultation: Colitis with suspected colon mass for eval and rec. DS: Diagnosis Discharge Diagnosis (1) ESRD on dialysis: Status: Acute (2) Hypotension: Status: Acute (3) Abdominal mass: Status: Acute (4) Colitis: Status: Acute DS: Summary Hospital Course Hospital Course: from initial hpi: 71-year-old male with past medical history of ESRD on dialysis, Wednesday, chronic hypotension, diabetes, HELLP syndrome status post esophagectomy, gastrectomy status post a G-tube, chronic cachexia with severe protein calorie malnutrition, AFib on Coumadin, COPD, TIA, HLD, schizophrenia, COVID-19 infection in May 2019 to presents to the hospital from [facility] for reported lethargy and worsening weakness.? He was reportedly found to have an oxygen saturation of 40% on room air, unclear how accurate as patient has been satting in the high 90s and room air at the hospital. Patient has had multiple presentations to the hospital for the same complaint but found to have chronic hypotension and sent back, this is his 4th visit within the past week. Patient is sleeping but arousable, wakes up and answers questions somewhat appropriately.? He answers yes and no to simple straightforward questions, he reports that he was sent into the hospital because he was hypotensive, he denies having any shortness of breath, no chest pain, no abdominal pain nausea or vomiting, he had multiple episodes of diarrhea in the ED but patient himself reports no diarrhea. Patient receive tube feeds 4 times per day, was reported that he has been losing weight since October. On arrival to the ED his vitals show a BP of 68/40 to with all other vitals stable satting 98% on room air Labs are significant for WBC count of 19.1 which was 15 on 01/10, hematocrit of 38, there is neutrophil the shift INR 3.9, creatinine of 6.81, labs otherwise unremarkable Imaging including abdomen pelvis CT as well as chest CT showed mild diffuse bronchial thickening that can be seen with mild bronchitis, patient also seen circumferential short segment wall thickening of the ascending colon with segmental wall thickening of the mid sigmoid colon, it appears worsened and could represent colitis.? Infectious versus ischemic versus inflammatory.? There is also an underlying mass in the same region of the ascending colon as disc ussed on previous report Given worsening leukocytosis and worsening finding of colitis patient will be admitted for further management hospital course: Patient was admitted for colitis complicated by hypokalemia. Noted to be positive for C diff, positive cause of infection versus colonization. He was treated with vancomycin per J-tube, diarrhea resolved. He did have some low- grade fevers during hospitalization, there is no evidence of sepsis, patient's hypotension is chronic. Most likely this was aspiration pneumonitis versus drug fevers. Fevers resolved after discontinuing ceftriaxone Flagyl. For patient's mood and psychiatric disorder he was continued on Seroquel, Zyprexa, Lamictal. On admission patient has CT which showed questionable abdominal mass. He underwent colonoscopy which showed patchy erythema and ulceration, pathology is pending, differential includes IBD and C diff, he has follow-up with Gastroenterology as outpatient. He tested negative for TB, hepatitis, HIV, initially planned to start mesalamine, however due to Potential cross sensitivity with aspirin to which patient is allergic this has been held. for patient's end-stage renal disease Will continue dialysis, for paroxysmal atrial fibrillation he will continue Coumadin. During admission he did have supratherapeutic INR but this has resolved. [facility] Time Spent with Patient Time attestation: Total time spent providing and/or coordinating discharge services: Discharge coordination time: Greater than 30 minutes Quality: Safe Use of Opioids Does Pt have an Active Cancer Diagnosis on the Problem List?: No Quality: Stroke Does the patient have a stroke diagnosis?: No Physical Exam Vital Signs: Vital Signs: Last Vital Signs Temp 97.4 F 01/19/22 03:56 Pulse 58 01/19/22 03:56 Resp 16 01/19/22 03:56 BP 86/54 L 01/19/22 03:56 Pulse Ox 94 01/19/22 03:56 O2 Del Method 01/19/22 03:56 O2 Flow Rate 3 01/11/22 15:32 BMI result Body Mass Index 21.3 Const: Other: Constitutional : Alert, interactive, frail and underweight Neck : Normal inspection, Supple Cardiovascular : RRR, no JVP, no lower extremity edema Respiratory : fair bilateral air entry, no crackles, wheezes or rhonchi Gastrointestinal: soft, lax, decreased bowel sounds, Non tender, ostomy in place , J-tube clean with no surrounding erythema Skin : Warm, Dry Neurological : Alert & oriented x3, No focal deficit , CN 2-12 within normal General: cooperative, no acute distress and ill appearing Orientation/consc iousness: oriented to person and patient oriented x3 Limitations: No language barrier Eyes: General: appearance normal, both eyes and all related structures Resp: Effort & Inspection: normal respiratory effort Auscultation: di minished lung sounds Cardio: Palpation: no palpable S4 Rate: regular rate Rhythm: regular rh ythm Heart sounds: no gallops and no murmurs GI: Other: J-tube in place Palpation (GI): Soft to palpation Auscultation: normal bowel sounds Skin: General skin exam: no rashes or lesions noted Neuro: General: oriented to person and patient oriented x3 Cognition (Neuro): normal cognition Motor exam (neuro): no asterixis Extrem: General: Yes normal to inspection and Yes no pedal edema Psych: Appearance: grossly normal and disheveled DS: Data Data Completed and Pending Pending studies at discharge: Pending at discharge 01/15/22 14:36 Surgical [PTH] Routine Labs on day of discharge: Laboratory Results - last 24 hr 01/19/22 05:46 PT 22.4 H INR 1.9 H Preliminary micro results at discharge 01/17/22 12:09 Blood Culture - Preliminary Blood - Venous No growth after 24 hours. 01/17/22 12:09 Blood Culture - Preliminary Blood - Venous No growth after 24 hours. Discharge Plan Discharge Patient Disposition: er SNF Discharge Diagnosis: cdif Referrals: Physician,Unknown J [Primary Care Provider] - 1 Week Discharge Medications: New mesalamine [Delzicol] 400 mg Capsule (With Del Rel Tablets) 800 mg PO TID Qty: 60 0RF Firvanq 25 mg/mL Recon Soln 125 mg G-tube Q6H 10 Days Qty: 0 0RF Continued quetiapine 25 mg Tablet 25 mg feeding tube BID Rx Instructions: x 14 days olanzapine 5 mg tablet 5 mg feeding tube Q4H PRN (Reason: Agitation) Rx Instructions: max 2 doses per 24 hrs cyanocobalamin (vitamin B-12) 1,000 mcg Tablet 1,000 mcg feeding tube DAILY melatonin 3 mg tablet 2 tab feeding tube BEDTIME lamotrigine 25 mg Tablet, Chewable Dispersible 200 mg feeding tube DAILY warfarin 6 mg Tablet 6 mg feeding tube DAILY@1800 famotidine 20 mg Tablet 20 mg feeding tube DAILY Rx Instructions: J tube olanzapine 15 mg Tablet 15 mg feeding tube BEDTIME Renal Caps 1 mg Capsule 1 cap feeding tube DAILY fludrocortisone 0.1 mg tablet 2 tab feeding tube BID midodrine 10 mg Tablet 10 mg feeding tube DAILY Rx Instructions: do not give last dose of day after 6PM or within 4 hrs of bedtime Discontinued docusate sodium [Colace] 100 mg capsule 100 mg PO BID Rx Instructions: via j tube doxycycline hyclate 100 mg tablet 100 mg feeding tube BID Discharge Orders: Discharge Order (Routine); Ordered 01/19/22 Ordered By: Denny Boyd Diet: Advance to usual diet Activity on Discharge: As tolerated Stand Alone Forms: Patient Portal Discharge page Care Plan Goals: recovery Health Concerns: aspirations, cdif Plan of Treatment: faby per stephanie Assessment: see above
--- NOTE | 2022-01-19 11:14 | MHC.CM.PN ---
pt dcd back to [facility] amb arranged for 2
--- NOTE | 2022-01-19 11:18 | MHC.CM.PN ---
pts brother left message re dc to [facility] today at 2
[2022-01-19 11:57] VITALS: BP 90/60; PULSE 70; RESP 17; TEMP 37.1; O2SAT 97
[2022-01-19 12:24] LABS: COVID-19 Test Negative (Negative); IDNOW Serial# 9DB6401D
== END 2022-01-19 15:27 | disposition skilled nursing facility (03) | DRG 371 ==
LOC: HO.ED 20:56 → HO.EDOVER 22:11 → HO.IMC 01-13 14:11
PROVIDERS: Internal Medicine Gastroenterology; Physician Assistant; Student in an Organized Health Care Education/Training Program; Admitting Provider Internal Medicine; Emergency Provider Student in an Organized Health Care Education/Training Program; PCP Internal Medicine; Visit Provider Internal Medicine
PROC: 0DJD8ZZ Inspection of Lower Intestinal Tract, Via Natural or Artificial Opening Endoscopic (ICD-10-PCS; CPT 45378; principal; 2022-01-15 13:30)
DX: A04.72 Enterocolitis due to Clostridium difficile, not specified as recurrent (principal); E43 Unspecified severe protein-calorie malnutrition; N18.6 End stage renal disease; J69.0 Pneumonitis due to inhalation of food and vomit; Z68.1 Body mass index [BMI] 19.9 or less, adult; J44.9 Chronic obstructive pulmonary disease, unspecified; E78.5 Hyperlipidemia, unspecified; Z93.4 Other artificial openings of gastrointestinal tract status; F20.9 Schizophrenia, unspecified; Z99.2 Dependence on renal dialysis; D72.829 Elevated white blood cell count, unspecified; E87.6 Hypokalemia; R79.1 Abnormal coagulation profile; R62.7 Adult failure to thrive; I48.0 Paroxysmal atrial fibrillation; Z86.73 Personal history of transient ischemic attack (TIA), and cerebral infarction without residual deficits; I95.89 Other hypotension; Z87.891 Personal history of nicotine dependence; Z88.6 Allergy status to analgesic agent; Z79.01 Long term (current) use of anticoagulants; Z79.899 Other long term (current) drug therapy
CPT/HCPCS: 36415; 71045; 71250; 74176; 80048; 80076; 82533; 82947; 83036; 83605; 83735; 84443; 85025; 85027; 85610; 85730; 86481; 86704; 86706; 86709; 86803; 87040; 87324; 87340; 87389; 87493; 87635; 88305; 90935; 90999; 93005; 96365; 96367; 96375; 97162; 99285; J0696; J2543; J3370; P9047